=== PATIENT | male | born 1950 | race Caucasian/White ===

== ENCOUNTER 2018-11-13 21:34 | Inpatient (IN) ==
[2018-11-13] MEDS ORDERED: ASPIRIN CHEW 324 MG ONE (21:48)
[2018-11-13] MEDS ORDERED: ASPIRIN 81 MG CHEW PO STA (21:51)
[2018-11-13] MEDS ORDERED: NITROGLYCERIN SL 0.4 MG/TAB TAB SL STA (21:55)
[2018-11-13 22:02] LABS: Basophils # (auto) 0.03 K/uL (0-0.2); Basophils % (auto) 0.3 %; Eosinophils # (auto) 0.24 K/uL (0-0.5); Hematocrit (blood only) 39.4 % (42-52); Hemoglobin 13.7 g/dL (14.0-18.0); Immature Granulocytes # (auto) 0.03 K/uL (0.00-0.02); Immature Granulocytes % (auto) 0.3 %; Lymphocytes # (auto) 1.67 K/uL (1.2-3.4); Lymphocytes % (auto) 14.1 %; Mean Corpuscular Hemoglobin 29.2 pg (25-34); Mean Corpuscular Hgb Conc 34.8 g/dL (32-36); Mean Platelet Volume 9.2 fL (7.4-10.4); Monocytes # (auto) 0.87 K/uL (0.11-0.59); Monocytes % (auto) 7.4 %; Neutrophils # (auto) 8.97 K/uL (1.4-6.5); Neutrophils % (auto) 75.9 %; Platelet Count 291 K/uL (130-400); RDW Standard Deviation 39.2 fL (36.4-46.3); Red Blood Count 4.69 M/uL (4.7-6.1); White Blood Count 11.81 K/uL (4.8-10.8)
[2018-11-13] MEDS ORDERED: NiCARDipine HCL INJ 2.5 MG/ML 10 ML AMP ONE (22:13)
[2018-11-13] MEDS ORDERED: HEPARIN (PORCINE) 1000 UNIT/ML 10 ML (CATH LAB USE ONLY) ONE ×2 (22:13→22:56)
[2018-11-13] MEDS ORDERED: NITROGLYCERIN/D5W 100MCG/ML 20ML SYR ONE (22:14)
[2018-11-13] MEDS ORDERED: fentaNYL citrate 100 MCG/2 ML VIAL ONE (22:14)
[2018-11-13] MEDS ORDERED: MIDAZOLAM HCL 1 MG/ML 2ML VIAL ONE ×2 (22:14→22:51)
--- NOTE | 2018-11-13 22:14 | XRay Report ---
XR chest 1V portable HISTORY: Atypical Chest Pain COMPARISON: None. FINDINGS: The cardiac silhouette is mildly enlarged. There are low lung volumes. No pleural effusions . No pneumothorax. The lungs are clear. No evidence for pulmonary edema. IMPRESSION: Mild cardiomegaly. Electronically signed by: Zion Mas M.D. 11/13/2018 10:13 PM
[2018-11-13 22:22] LABS: Albumin Level 4.3 gm/dl (3.4-5.0); BUN Creatinine Ratio 12.2 (10-20); Calcium 9.8 mg/dl (8.5-10.1); Creatinine Clr Calc Pharmacy 54.5 ml/min; Est GFR (African American) 54.6; Est GFR (Non-African American) 47.1; Potassium 3.8 mmol/L (3.5-5.1)
--- NOTE | 2018-11-13 22:25 | Cardiology Consultation ---
Date of Consultation November 13, 2018 Assessment & Plan (1) Acute MT: Presentation consistent with inferior STEMI and recommend proceeding with emergent cardiac catheterization and likely primary PCI. No apparent contraindications to procedure. Discussed risks, benefits, alternatives of procedure with patient and they are willing to proceed. Further recommendations pending findings of coronary angiography. History of Present Illness History of Present Illness 68-year-old man here with acute chest/back pain and ECG concerning for acute MT. Patient seen emergently in the ED after heart alert activated in ED. No prior cardiac history. Cardiac risk factors include type 2 diabetes, hypertension, dyslipidemia. Also reports family history of premature coronary disease involving his sister and prior MT with CABG involving his oler brother. Chest/back pain began approximately 8 PM, 2 hours prior to arrival while out camping. Describes back pain radiating to his neck with associated nausea. Denies similar symptoms in the past. Hemodynamically stable on arrival. Intermittent runs of nonsustained VT on telemetry. EKG showed sinus rhythm with inferior ST elevations. Allergies Allergy/AdvReac Type Severity Reaction Status Date / Time simvastatin Allergy Intermediate RASH Unverified 08/26/10 12:48 Home Medications Home Medications Medication Instructions Recorded Confirmed Type ATORVASTATIN (LIPITOR) 20 mg PO DAILY #0 08/26/10 History Amitriptyline Hcl (Elavil) 50 mg PO DAILY #0 08/26/10 History Clomipramine Hcl (Anafranil *) 50 mg PO TID #0 08/26/10 History Diazepam (Valium) 5 mg PO DAILY PRN #0 08/26/10 History Lisinopril (Zestril) 10 mg PO DAILY #0 08/26/10 History Metformin HCL (Glucophage *) 1,000 mg PO BID #0 08/26/10 History Methylphenidate (Ritalin) 10 mg PO TID #0 08/26/10 History Venlafaxine Hcl (Effexor *) 50 mg PO TID #0 08/26/10 History Patient History Medical History HTN (hypertension) Social History Feels Safe at Home: Yes Smoking Status: Former smoker Review of Systems Review of Systems: Not obtained in the setting of emergent situation Physical Exam Physical Exam: General: Uncomfortable, no acute distress HEENT: Sclerae anicteric Lungs: Clear to auscultation bilaterally Cardiac: Regular rate and rhythm, no murmurs. Abdomen: Soft, nontender, nondistended, positive bowel sounds. Extremities: Warm, well perfused, no edema. 2+ radial pulses Skin: No rashes or lesions. Neuro: Nonfocal Psych: Alert orient x3, normal affect and mood Results & Data Vital Signs (Past 12 Hours) Vital Signs Temp Pulse Pulse Resp BP BP Pulse Ox 11/13/18 22:15 84 16 147/93 H 95 11/13/18 22:10 88 16 159/96 H 96 11/13/18 22:05 84 16 159/103 H 95 11/13/18 22:03 89 16 171/98 H 97 11/13/18 21:35 97.9 F 72 20 181/115 H 98 PG Care Time/CCT Total # of Minutes Spent Total Time Spent with Patient: Total time spent is greater than 50% in coordination of care (as documented) at patient's floor/unit and/or counseling patient:
--- NOTE | 2018-11-13 22:25 | Pre Anesthesia Assessment ---
Date of Service November 13, 2018 Pre Sedation Assessment Vital Signs Temp Pulse Pulse Resp BP BP Pulse Ox 11/13/18 22:15 84 16 147/93 H 95 11/13/18 22:10 88 16 159/96 H 96 11/13/18 22:05 84 16 159/103 H 95 11/13/18 22:03 89 16 171/98 H 97 11/13/18 21:35 97.9 F 72 20 181/115 H 98 Cardiovascular RRR, no murmur, no edema Respiratory normal respiratory effort, lungs clear to auscultation Pre-Sedation Airway Assessment Smoking Status: Former smoker Hx Sleep Apnea: No Hx Difficult Intubation: No Short, Thick Neck: No Thyromental Distance: > or= 3.5 Finger Breadths Oral Cavity: + WNL Mallampati Class: III ASA: ASA4 Procedure Planning Contraindications for Sedation: none Current Medications Reviewed: Yes Notes The planned sedation has been discussed with the patient. Informed Consent was obtained. I have identified the patient, determined the appropriateness of sedation and have assessed the patient immediately prior to the procedure. All medicine(s) and interventions are by my order.
[2018-11-13 22:27] LABS: Bilirubin,Total 0.5 mg/dl (0.2-1); Globulin 4.2 gm/dl (2.5-4.0); Total Protein 8.5 gm/dl (6.4-8.2); Troponin I 0.043 ng/ml (0-0.045)
[2018-11-13] MEDS ORDERED: ATROPINE SULFATE 0.1 MG/ML 10ML SYR IV ONE (22:42)
[2018-11-13] MEDS ORDERED: EPTIFIBATIDE 2 MG/ML 10 ML VIAL (CATH LAB USE ONLY) ONE (22:57)
[2018-11-13] MEDS ORDERED: EPTIFIBATIDE 0.75 MG/ML 75MG VIAL (CATH LAB USE ONLY) ONE (23:00)
[2018-11-13] MEDS ORDERED: TICAGRELOR 90 MG TAB PO ONE (23:19)
[2018-11-13] MEDS: EPTIFIBATIDE 75 MG/100 ML VIAL IV SCH (23:30)
[2018-11-13] MEDS ORDERED: EPTIFIBATIDE BOLUS/DRIP IV STA (23:33)
[2018-11-13] MEDS ORDERED: ONDANSETRON INJ 2 MG/ML 2 ML VIAL IV PRN (23:33)
--- NOTE | 2018-11-13 23:33 | Post Anesthesia Assessment ---
Date of Service November 13, 2018 Post Sedation Assessment Vital Signs Temp Pulse Pulse Resp BP BP Pulse Ox 11/13/18 22:15 84 16 147/93 H 95 11/13/18 22:10 88 16 159/96 H 96 11/13/18 22:05 84 16 159/103 H 95 11/13/18 22:03 89 16 171/98 H 97 11/13/18 21:35 97.9 F 72 20 181/115 H 98 Recovery Score Activity: Moves 4 extremities Respiration: Deep Breath/Cough Circulation: +/-20% PreAnes Value Consciousness: Fully Awake Oxygen Saturation: O2 needed for >90% Discharge Sedation Level of Care: Fast Track Phase II Post Sedation Plan On clinical assessment, the patient appears to have tolerated the sedation without complications. Patient is recovering as anticipated. Patient will continue to be monitored by nursing and may be discharged when sedation discharge criteria are met per below protocol. Upon Completions of procedure and additional 15 minutes continue every 5 minute vital signs and the P.A.R. score; then discharge to a Phase I or Fast Track to Phase II per the following guidelines: * Discharge Patient to appropriate Phase II area if PAR is 8 or greater or return to pre- procedure baseline. The post - procedure orders will be as directed. * If PAR score is less than 8 or not return to pre-procedure baseline then patient will follow Phase I monitoring till PAR is reached for Phase II. The Phase I may be done in procedure room or may call to secure a Phase I area. * If naloxone or flumazenil are used for reversal, hold in Phase I for continued monitoring from when last reversal dose was given for a minimum of 60 minutes or longer pending the nurse and/or physician discretion of patient condition before discharge to Phase II. Please call the Sedation Physician to re-evaluate and complete post-note for discharge to Phase II area. Do NOT discharge from procedure sedation or Phase 1 until post- sedation evaluation note is complete by procedure /sedation MD Sedation Discharge Instructions to be given to the patient at discharge to home.
[2018-11-13] MEDS ORDERED: ICU PROTOCOL FOR HYPERGLYCEMIA PRN (23:38)
[2018-11-13] MEDS ORDERED: SODIUM CHLORIDE 0.9% 1000ML 1,000 ML IV SCH (23:45)
--- NOTE | 2018-11-13 23:54 | Cardiac Catheterization ---
[facility] Data: Upholsterer Inside Cardiac Status Clinical evaluation leading to the procedure CAD Presenation: STEMI Anginal Classification: CCS IV Heart Failure: No Cardiogenic Shock within 24 Hours: No Cardiac Arrest within 24 Hours: No Imaging Studies Past 6 Months: No Stress Studies Past 6 Months: No Diagnostic Physicians Name: Azale Huff MD Status: Emergency Closure Device Percutaneous Entry Location: Radial Closure Device: Radial Band Recommendations: PCI without planned CABG PCI Indication: Immediate PCI for STEMI First Noted: First EKG Lesion Segment Name: distal rca Culprit Artery: Yes Stenosis Prior to Rx (%): 100 Chronic Total Occlusion: No IVUS: No FFR: No Pre-Procedure LORIE Flow: 0 Previously Treated Lesion: No Lesion Complexity: Non-High/Non-C Lesion Length (mm): 18 Thrombus Present: Yes Bifurcation Lesion: Yes Guidewire Across Lesion: Stenosis Post-Procedure (%): 0 Post-Procedure LORIE Flow: 3 Devices(s) Deployed: Yes Yes Intraprocedure Events Significant Disection: No Perforation: No Cardiac Cath Procedure Full Procedure Date November 13, 2018 Pre-Procedure Diagnosis Pre-Procedure Diagnosis: STEMI AUC Score AUC Score: 9 Post-Procedure Diagnosis Post-Procedure Diagnosis: Severe CAD, Successful PCI and Normal Intracardiac Pressures Procedure(s) Performed Procedure(s) Performed: Coronary Angiography, Left Heart Cath and Drug Eluting Stent Corrugated Box Machine Operator Azael Huff MD Greige Mender(s) [employer] Estimated Blood Loss Estimated Blood Loss: 10 Medication(s) Medication(s): Fentanyl, Heparin, Integrilin, Lidocaine 1%, Nicardipine, N itroglycerin and Versed Medication(s): Ticagrelor Summary of Findings Indication: STEMI/Heart Alert Access: 6 Fr right radial artery Catheters: Ikari 3.5 guide, JR4 guide, pigtail Findings: LM -angiographically normal LAD -moderate caliber vessel, proximal luminal irregularities, mid segment 40% disease, distal luminal irregularities as wraps around apex. 70 to 80% ostial stenosis of moderate caliber second diagonal Circumflex -moderate caliber vessel, luminal irregularities, gives off large OM 2 without significant disease RCA -moderate caliber vessel, dominant, 20 to 30% proximal, mid segment luminal irregularities, 100% acute distal occlusion prior to bifurcation with PDA. LVEDP -18 -- PCI -- Antithrombotic therapy: Heparin, Integrilin, ticagrelor Procedure: RCA cannulated with JR4 guide Dealer Account Manager 50 wire passed across lesion into distal PLB BMW wire placed into right PDA Distal RCA lesion predilated with 2.5 compliant balloon Dilated lesion stented with 3.0 x 22 mm Gonzalo drug-eluting stent Post procedure noted to have significant thrombus burden extending into PDA Started on ICE, IV Integrilin, mid PDA dottered with 2.5 balloon Stent post-dilated with 3.0 noncompliant balloon IC vasodilators administered for spasm Post procedure LORIE 3 flow, stent well expanded with minimal residual stenosis and no edge dissection. Some residual clot and distal most aspects of right PDA. Arterial Closure: TR band Summary: 1. Inferior STEMI/Occluded distal RCA 2. 70 to 80% ostial stenosis of moderate caliber second diagonal 3. Borderline intracardiac filling pressure. LVEDP 18 4. Successful PCI of distal RCA with single drug-eluting stent (3.0 x 22 mm [place]). Recommendations: Admit to ICU for continued monitoring Continue Integrilin for 8 hours for heavy thrombus burden Loaded with ticagrelor 180 mg in woven label designer Continue dual-antiplatelet therapy for at least 1 year. Trend troponins until peak, Check Echo Uptitrate beta-chikis/NICOLAS as BP allows High-dose statin Consult cardiac Rehab Hemodynamics Rest Ao:: 128/70/94 Final Ao: 154/83/112 LV: 153/18 Recommendations Recommendations: PCI without planned CABG Specimens Specimens: None Radiation Exposure (mGy) 4098 Contrast (mls) 150 Fluids (cc crystalloids) Fluids (cc crystalloids): 100 Drains Drains: none Anesthesia moderate Procedural Complication(s) None Disposition ICU
--- NOTE | 2018-11-14 00:25 | Emergency Department Note ---
Entered by Della Jain acting as a scribe for History of Present Illness General Chief complaint: Back Injury/Pain Stated complaint: BACK PAIN Source: patient Mode of arrival: EMS Limitations: no limitations History of Present Illness Onset (ago): hour(s) 3 Location: back Radiation: other (upper shoulder) Pain Consistency: + constant Maximum Pain Intensity: 6 Current Pain Intensity: 6 Relieved By: + medication (Tums) Exacerbated By: + none Associated symptoms: + nausea/vomiting (+nausea, -vomiting); no chest pain and no shortness of breath Treatments prior to arrival: other (TUMS) The patient is a 68 year old male with a PMHX of DM and HTN who presents to the ED with complaints of back pain. He was brought to the ED via EMS. 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 He tried taking TUMS, which provided minimal relief. He rates his current discomfort as a 6/10 in severity. He denies any difficulty breathing or chest pain. He denies any prior heart history. He does take a daily baby Aspirin. He admits to nausea but denies any vomiting. Home Medications Home Medications Medication Instructions Recorded Confirmed Type ATORVASTATIN (LIPITOR) 20 mg PO DAILY #0 08/26/10 History Amitriptyline Hcl (Elavil) 50 mg PO DAILY #0 08/26/10 History Clomipramine Hcl (Anafranil *) 50 mg PO TID #0 08/26/10 History Diazepam (Valium) 5 mg PO DAILY PRN #0 08/26/10 History Metformin HCL (Glucophage *) 1,000 mg PO BID #0 08/26/10 History Methylphenidate (Ritalin) 10 mg PO TID #0 08/26/10 History Effexor XR 75 mg PO DAILYBL 11/14/18 11/14/18 History Effexor XR 150 mg PO DAILYBB 11/14/18 11/14/18 History repaglinide [Prandin] 2 mg PO AC 11/14/18 11/14/18 History sitagliptin [Januvia] 100 mg PO DAILY 11/14/18 11/14/18 History valsartan 80 mg PO DAILY 11/14/18 11/14/18 History Allergies Allergy/AdvReac Type Severity Reaction Status Date / Time simvastatin Allergy Intermediate RASH Unverified 08/26/10 12:48 Past Med/Surg History Medical History HTN (hypertension) Social History Preferred Language: Kazakh Communication Ability: Effective [place] Required: No Beliefs That Will Affect Care: None Current Living Situation: Spouse Other Information That Helps Us Care for You: No Feels Safe at Home: Yes Safety Concerns: Feels Safe At This Time Smoking Status: Former smoker Hx Alcohol Use: Yes Alcohol type: beer Hx Substance Use: No Review of Systems See HPI for pertinent positives & negatives. and A total of 10 systems reviewed and were otherwise negative Physical Exam Vital Signs Vital Signs - 24 hr 11/13/18 21:35 11/13/18 22:00 11/13/18 22:03 Temperature 36.6 C Temperature Source Oral Sepsis Recent Fever Within 48 Hours No Sepsis New/Unexplained Change in Mental Status No Sepsis Action Taken by Nursing No Action Required Pulse Rate 72 Pulse Rate [Apical] Pulse Rate [Finger] 89 Pulse Rhythm [Apical] Pulse Strength [Apical] Respiratory Rate 20 16 Respiratory Effort / Characteristics Non-Labored Spontaneous Non-Labored Spontaneous Respiratory Depth Normal Normal Respiratory Pattern Regular Blood Pressure 181/115 H Blood Pressure [Left Arm] Blood Pressure [Right Arm] 171/98 H Blood Pressure Mean 137 Blood Pressure Mean [Left Arm] Blood Pressure Mean [Right Arm] 122 Blood Pressure Position Sitting Blood Pressure Position [Left Arm] Pulse Oximetry 98 97 Oxygen Delivery Method Room Air Room Air Room Air 11/13/18 22:05 11/13/18 22:10 11/13/18 22:15 Temperature Temperature Source Sepsis Recent Fever Within 48 Hours Sepsis New/Unexplained Change in Mental Status Sepsis Action Taken by Nursing Pulse Rate Pulse Rate [Apical] Pulse Rate [Finger] 84 88 84 Pulse Rhythm [Apical] Pulse Strength [Apical] Respiratory Rate 16 16 16 Respiratory Effort / Characteristics Non-Labored Spontaneous Respiratory Depth Normal Respiratory Pattern Blood Pressure Blood Pressure [Left Arm] Blood Pressure [Right Arm] 159/103 H 159/96 H 147/93 H Blood Pressure Mean Blood Pressure Mean [Left Arm] Blood Pressure Mean [Right Arm] 121 117 111 Blood Pressure Position Blood Pressure Position [Left Arm] Pulse Oximetry 95 96 95 Oxygen Delivery Method Room Air Room Air 11/13/18 23:34 Temperature 36.6 C Temperature Source Oral Sepsis Recent Fever Within 48 Hours Sepsis New/Unexplained Change in Mental Status Sepsis Action Taken by Nursing Pulse Rate Pulse Rate [Apical] 87 Pulse Rate [Finger] Pulse Rhythm [Apical] Regular Pulse Strength [Apical] Normal Respiratory Rate 18 Respiratory Effort / Characteristics Non-Labored Spontaneous Respiratory Depth Normal Respiratory Pattern Regular Blood Pressure Blood Pressure [Left Arm] 147/79 H Blood Pressure [Right Arm] Blood Pressure Mean Blood Pressure Mean [Left Arm] 101 Blood Pressure Mean [Right Arm] Blood Pressure Position Blood Pressure Position [Left Arm] Lying Pulse Oximetry 96 Oxygen Delivery Method Room Air GENERAL: Patient is awake and alert, appears diaphoretic and pool. HENT: Normocephalic, atraumatic. EYES: Normal conjunctiva. Sclera non-icteric. NECK: Supple. No nuchal rigidity. RESPIRATORY: Clear to auscultation. Normal respiratory effort. CARDIAC: Normal rate. Irregular rhythm. Extremities warm and well perfused. GI: Soft, non-distended. No tenderness to palpation. LOWER EXTREMITIES: Calves are equal size bilaterally and non-tender. No edema NEURO: Normal sensorium. No sensory or motor deficits noted. No facial droop. SKIN: Warm and dry. No jaundice noted. Course 2146: The patient was evaluated in room B5 and a complete history and physical were performed. 5: I discussed the patients case with Dr. Huff, Interventional Cardiology. The patient will be further evaluated. Consultations Consultation #1: I discussed the patients case with Dr. Huff, Interventional Cardiology. The patient will be further evaluated. Time: 22:15 Administered Medications Sodium Chloride (Nss 1000ml) 1,000 mls @ 100 mls/hr IV .Q10H [facility] Stop: 11/14/18 04:44 Last Admin: 11/13/18 23:45 Dose: 100 mls/hr Documented by: [id number] Eptifibatide (Integrilin) 75 mg in 100 mls @ 15.84 mls/hr IV .Q6H19M [facility]; Protocol Stop: 11/14/18 07:00 Last Admin: 11/13/18 23:30 Dose: 2 mcg/kg/min, 15.8 mls/hr Documented by: [id number] Cosigned by: [id number] Discontinued Medications Aspirin (Aspirin) Confirm Administered Dose 324 mg .ROUTE .[facility] Stop: 11/13/18 21:49 Last Admin: 11/13/18 21:58 Dose: 243 mg Documented by: [id number] Aspirin (Aspirin Chew) 243 mg PO NOW STA Stop: 11/13/18 21:52 Last Admin: 11/13/18 21:59 Dose: Not Given Documented by: [id number] Atropine Sulfate (Atropine Sulfate) Confirm Administered Dose 1 mg IV .STK-MED ONE Stop: 11/13/18 22:43 Last Admin: 11/14/18 00:57 Dose: Not Given Documented by: [id number] Eptifibatide (Integrilin ([facility] Use Only)) Confirm Administered Dose 20 mg .ROUTE .STK-MED ONE Stop: 11/13/18 22:58 Last Admin: 11/14/18 00:57 Dose: Not Given Documented by: [id number] Eptifibatide (Integrilin ([facility] [employer] Use Only)) Confirm Administered Dose 75 mg .ROUTE .STK-MED ONE Stop: 11/13/18 23:01 Last Admin: 11/14/18 00:57 Dose: Not Given Documented by: [id number] Fentanyl Citrate (Fentanyl Citrate) Confirm Administered Dose 100 mcg .ROUTE .STK-MED ONE Stop: 11/13/18 22:15 Last Admin: 11/14/18 00:56 Dose: Not Given Documented by: [id number] Heparin Sodium (Porcine) (Heparin Iv Bolus ([facility] Use Only)) Confirm Administered Dose 10,000 units .ROUTE .STK-MED ONE Stop: 11/13/18 22:14 Last Admin: 11/14/18 00:56 Dose: Not Given Documented by: [id number] Heparin Sodium (Porcine) (Heparin Iv Bolus ([facility] Use Only)) Confirm Administered Dose 10,000 units .ROUTE .STK-MED ONE Stop: 11/13/18 22:57 Last Admin: 11/14/18 00:57 Dose: Not Given Documented by: [id number] Heparin Sodium/Sodium Chloride (Heparin/Nss 1000 Unit/500ml Flush Bag) Confirm Administered Dose 3,000 units IV .STK-MED ONE Stop: 11/13/18 22:15 Last Admin: 11/14/18 00:56 Dose: Not Given Documented by: [id number] Midazolam HCl (Versed) Confirm Administered Dose 2 mg .ROUTE .STK-MED ONE Stop: 11/13/18 22:15 Last Admin: 11/14/18 00:56 Dose: Not Given Documented by: [id number] Midazolam HCl (Versed) Confirm Administered Dose 2 mg .ROUTE .STK-MED ONE Stop: 11/13/18 22:52 Last Admin: 11/14/18 00:57 Dose: Not Given Documented by: [id number] Nicardipine HCl (Cardene) Confirm Administered Dose 25 mg .ROUTE .STK-MED ONE Stop: 11/13/18 22:14 Last Admin: 11/14/18 00:56 Dose: Not Given Documented by: [id number] Nitroglycerin (Nitrostat) 0.4 mg SL NOW STA Stop: 11/13/18 21:56 Last Admin: 11/13/18 21:58 Dose: 0.4 mg Documented by: [id number] Nitroglycerin/Dextrose (Nitroglycerin/D5w 100 Mcg/Ml 20ml Syringe) Confirm Administered Dose 2,000 mcg .ROUTE .STK-MED ONE Stop: 11/13/18 22:15 Last Admin: 11/14/18 00:56 Dose: Not Given Documented by: [id number] Ticagrelor (Brilinta) Confirm Administered Dose 180 mg PO .STK-MED ONE Stop: 11/13/18 23:20 Last Admin: 11/14/18 00:57 Dose: Not Given Documented by: [id number] Medical Decision Making Differential Diagnosis Differential diagnoses includes but is not limited to acute coronary syndrome, myocardial infarction, pericarditis, pulmonary embolus, aortic dissection, pneumonia, pneumothorax, musculoskeletal, shingles, esophageal. Medical Records Attestation: I reviewed the patient's medical records. Home Medications Current Medication List: was personally reviewed by me Laboratory Data Attestation: I reviewed the patient's lab results. Result diagrams: 11/13/18 21:52 11/13/18 21:52 Lab Results 11/13/18 11/13/18 11/13/18 Range/Units 21:52 21:52 21:52 WBC 11.81 H (4.8-10.8) K/uL RBC 4.69 L (4.7-6.1) M/uL Hgb 13.7 L (14.0-18.0) g/dL Hct 39.4 L (42-52) % MCV 84.0 (80-100) fL MCH 29.2 (25-34) pg MCHC 34.8 (32-36) g/dL RDW Std Deviation 39.2 (36.4-46.3) fL RDW Coeff of Aaron 13.0 (11.5-14.5) % Plt Count 291 (130-400) K/uL MPV 9.2 (7.4-10.4) fL Immature Gran % (Auto) 0.3 % Neut % (Auto) 75.9 % Lymph % (Auto) 14.1 % [place] % (Auto) 7.4 % Eos % (Auto) 2.0 % Baso % (Auto) 0.3 % Immature Gran # (Auto) 0.03 H (0.00-0.02) K/uL Neut # (Auto) 8.97 H (1.4-6.5) K/uL Lymph # (Auto) 1.67 (1.2-3.4) K/uL [place] # (Auto) 0.87 H (0.11-0.59) K/uL Eos # (Auto) 0.24 (0-0.5) K/uL Baso # (Auto) 0.03 (0-0.2) K/uL PT (9.0-12.0) Seconds INR (0.9-1.1) Activ Coag Time Kaolin (94-140) SECONDS Sodium 134 L (136-145) mmol/L Potassium 3.8 (3.5-5.1) mmol/L Chloride 99 (98-107) mmol/L Carbon Dioxide 26 (21-32) mmol/L Anion Gap 9.0 (3-11) BUN 19 H (7-18) mg/dl Creatinine 1.52 H (0.6-1.4) mg/dl Est Cr Clr Drug Dosing 54.5 ml/min Est GFR ( Amer) 54.6 Est GFR (Non-Af Amer) 47.1 BUN/Creatinine Ratio 12.2 (10-20) Glucose 238 H (70-99) mg/dl Calcium 9.8 (8.5-10.1) mg/dl Total Bilirubin 0.5 (0.2-1) mg/dl AST 30 (15-37) U/L ALT 35 (12-78) U/L Alkaline Phosphatase 109 (45-117) U/L POC Troponin I (0-0.045) ng/ml Troponin I 0.043 (0-0.045) ng/ml Total Protein 8.5 H (6.4-8.2) gm/dl Albumin 4.3 (3.4-5.0) gm/dl Globulin 4.2 H (2.5-4.0) gm/dl Albumin/Globulin Ratio 1.0 (0.9-2) Lipase 518 H (73-393) U/L 11/13/18 11/13/18 11/13/18 Range/Units 21:52 22:01 22:51 WBC (4.8-10.8) K/uL RBC (4.7-6.1) M/uL Hgb (14.0-18.0) g/dL Hct (42-52) % MCV (80-100) fL MCH (25-34) pg MCHC (32-36) g/dL RDW Std Deviation (36.4-46.3) fL RDW Coeff of Aaron (11.5-14.5) % Plt Count (130-400) K/uL MPV (7.4-10.4) fL Immature Gran % (Auto) % Neut % (Auto) % Lymph % (Auto) % [place] % (Auto) % Eos % (Auto) % Baso % (Auto) % Immature Gran # (Auto) (0.00-0.02) K/uL Neut # (Auto) (1.4-6.5) K/uL Lymph # (Auto) (1.2-3.4) K/uL [place] # (Auto) (0.11-0.59) K/uL Eos # (Auto) (0-0.5) K/uL Baso # (Auto) (0-0.2) K/uL PT 10.0 (9.0-12.0) Seconds INR 1.0 (0.9-1.1) Activ Coag Time Kaolin 230 H (94-140) SECONDS Sodium (136-145) mmol/L Potassium (3.5-5.1) mmol/L Chloride (98-107) mmol/L Carbon Dioxide (21-32) mmol/L Anion Gap (3-11) BUN (7-18) mg/dl Creatinine (0.6-1.4) mg/dl Est Cr Clr Drug Dosing ml/min Est GFR ( Amer) Est GFR (Non-Af Amer) BUN/Creatinine Ratio (10-20) Glucose (70-99) mg/dl Calcium (8.5-10.1) mg/dl Total Bilirubin (0.2-1) mg/dl AST (15-37) U/L ALT (12-78) U/L Alkaline Phosphatase (45-117) U/L POC Troponin I 0.03 (0-0.045) ng/ml Troponin I (0-0.045) ng/ml Total Protein (6.4-8.2) gm/dl Albumin (3.4-5.0) gm/dl Globulin (2.5-4.0) gm/dl Albumin/Globulin Ratio (0.9-2) Lipase (73-393) U/L 11/13/18 Range/Units 23:10 WBC (4.8-10.8) K/uL RBC (4.7-6.1) M/uL Hgb (14.0-18.0) g/dL Hct (42-52) % MCV (80-100) fL MCH (25-34) pg MCHC (32-36) g/dL RDW Std Deviation (36.4-46.3) fL RDW Coeff of Aaron (11.5-14.5) % Plt Count (130-400) K/uL MPV (7.4-10.4) fL Immature Gran % (Auto) % Neut % (Auto) % Lymph % (Auto) % [place] % (Auto) % Eos % (Auto) % Baso % (Auto) % Immature Gran # (Auto) (0.00-0.02) K/uL Neut # (Auto) (1.4-6.5) K/uL Lymph # (Auto) (1.2-3.4) K/uL [place] # (Auto) (0.11-0.59) K/uL Eos # (Auto) (0-0.5) K/uL Baso # (Auto) (0-0.2) K/uL PT (9.0-12.0) Seconds INR (0.9-1.1) Activ Coag Time Kaolin 246 H (94-140) SECONDS Sodium (136-145) mmol/L Potassium (3.5-5.1) mmol/L Chloride (98-107) mmol/L Carbon Dioxide (21-32) mmol/L Anion Gap (3-11) BUN (7-18) mg/dl Creatinine (0.6-1.4) mg/dl Est Cr Clr Drug Dosing ml/min Est GFR ( Amer) Est GFR (Non-Af Amer) BUN/Creatinine Ratio (10-20) Glucose (70-99) mg/dl Calcium (8.5-10.1) mg/dl Total Bilirubin (0.2-1) mg/dl AST (15-37) U/L ALT (12-78) U/L Alkaline Phosphatase (45-117) U/L POC Troponin I (0-0.045) ng/ml Troponin I (0-0.045) ng/ml Total Protein (6.4-8.2) gm/dl Albumin (3.4-5.0) gm/dl Globulin (2.5-4.0) gm/dl Albumin/Globulin Ratio (0.9-2) Lipase (73-393) U/L Imaging Data Radiologist's Impression: Radiology results as stated below per my review and the radiologist's interpretation: XR chest 1V portable HISTORY: Atypical Chest Pain COMPARISON: None. FINDINGS: The cardiac silhouette is mildly enlarged. There are low lung volumes. No pleural effusions. No pneumothorax. The lungs are clear. No evidence for pulmonary edema. IMPRESSION: Mild cardiomegaly. Electronically signed by: Zion Mas M.D. 11/13/2018 10:13 PM ECG Data Attestation: I personally reviewed and interpreted this ECG as follows: Indication: back/shoulder pain Rate (beats per minute): 83 Rhythm: sinus rhythm Findings: + ST depression (in AVL and V2) and + ST elevation (from lead 3 to AVF) Additional Comments: 2nd EKG on 11/13/2018: Sinus Rhythm, rate of 88, persistent ST segment elevation, PVC's. Blood Pressure Blood Pressure Findings: Elevated blood pressure Blood Pressure Disposition: further management by hospitalist JAGJIT Narrative Patient is a non-insulin diabetic with a history of hypertension presenting with onset of upper back and arm pain starting around 8 PM. Took some Tums. EKG from triage is concerning for possible inferior STEMI and quickly came to bedside to evaluate the patient he is pool and diaphoretic. Complaining of 6 out of 10 pain in the upper back and arms. Denies shortness of breath or abdominal discomfort. Denies shortness of breath. With his heart alert was initiated. Second EKG obtained, similar. Received additional aspirin for full dose today and given 2 doses of nitroglycerin. Patient's blood pressure was initially significant hypertensive. Ectopy on round up ring hand and one short episode of NSVT. Basic labs were sent. Cath team to bedside including Dr. Huff who consented the patient took him to the [facility] for further intervention. Impression & Plan ST elevation (STEMI) myocardial infarction, Chest pain Critical Care Time Critical Care Time: Yes Total Critical Care Time: 30 I have personally spent 30 minutes of critical care time in the direct management of this patient. This includes bedside care, interpretation of diagnostic studies, and testing, discussion with consultants, patient, and family members, and other required patient management activities. This 30 hunter johnny is in excess of all separately billable procedures. Discharge Plan Visit Data *Final* Discharge Date/Time: 11/13/18 22:19 Chief Complaint: Back Injury/Pain Stated Complaint: BACK PAIN ED Provider: Jerrell Crawford Discharge Problem: ST elevation (STEMI) myocardial infarction, Chest pain Patient Disposition: Admitted As Inpatient Discharge Instructions Interventions: ED Discharge Assessment Last Done: 11/13/18 22:19 The scribe's documentation has been prepared under my direction and personally reviewed by me in its entirety. I confirm that the note above accurately reflects all work, treatment, procedures, and medical decision making performed by me.
--- NOTE | 2018-11-14 00:55 | Critical Care Consultation ---
Date of Consultation November 14, 2018 Assessment & Plan (1) Admitted to intensive care unit: Reason Critically Ill: 68-year-old male with acute inferior ST segment elevation myocardial infarction status post PTCI with RIAZ x1 to the RCA requiring close hemodynamic monitoring status post coronary intervention. NEURO - * CAM ICU: NEGATIVE CARDIAC/VASCULAR - * Acute inferior ST elevation myocardial infarction status post PCI with RIAZ x1 to the RCA: * Close hemodynamic monitoring status post coronary intervention. * Trend troponins. * Continue Integrilin per interventionalist. * ASCVD per typical. * Monitor blood pressures/heart rates closely in the setting of RCA injury. * A.m. echocardiogram. * EKG: Sinus rhythm with left bundle branch block. Acute ST elevation noted in inferior leads. QTc 474ms. * Monitor on telemetry. RESPIRATORY - * No h/o pulmonary disease. * Saturating well on room air. GI/NUTRITION - * Heart healthy diet. RENAL/LYTES - * Tolerating PO - * No concerns at this time. ENDO - * DMII * BSGs per unit protocol. ISS --> gtt per unit policy. * No h/o Thyroid Dz. HEME - * Stable H&H * Monitor closely while Integrilin gtt running. ID - * No concerns for infectious contribution at this time. LINES/IV ACCESS - * PIVs x2 * TR Band to the RIGHT Wrist. DVT PROPHYLAXIS - * Hold in the setting of current Integrilin gtt. * SCDs I have personally spent [] minutes of critical care time in the direct management of this patient. This is a life/limb threatening event. This includes time spent evaluating patient, direct bedside care, chart review, placing orders, interpretation of diagnostic studies, discussion with consultants, patient, and family members, as well as other required patient management activities. This time is exclusive of all separately billable procedures, and teaching time and separate from and in addition to any other critical care service time. Thank you for allowing us to participate in the care of this patient. Please refer to my attending physician's documentation for any further recommendations. (2) ST elevation (STEMI) myocardial infarction: (3) Acute LA: (4) HTN (hypertension): (5) HLD (hyperlipidemia): (6) Diabetes: (7) S/P drug eluting coronary stent placement: History of Present Illness Attending Physician: Azael Huff MD History of Present Illness Patient is a 68-year-old male with a significant past medical history of hypertension, hyperlipidemia, and diabetes who presented to the emergency department after developing intense pain between his shoulder blades at approximately 7 PM. In addition, the patient's noticed that he was having heavy breathing when she arrived home. In addition, the patient was utilizing Tums as he was complaining of heartburn symptoms. Patient reports radiation of the pain to the bilateral biceps. He reports no other associated symptoms. He has never experienced pain like this in the past. Upon arrival in the emergency department, the patient was evaluated and there was concerns for acute inferior ST elevation myocardial infarction. Heart alert was called and the patient was taken emergently to the catheterization lab where he underwent PTCI with RIZA x1 to the RCA. Upon arrival in the ICU, the patient is awake, alert, and oriented. He is complaining of some mild 2/10 pain which persists between the shoulder blades. He denies any radiation of pain at this time. He denies any chest pain, palpitations, pleuritic pain, nausea, vomiting, diaphoresis, abdominal pain, or numbness/weakness to the extremities. Patient reports a history of smoking several years ago in college. No significant alcohol use. Allergies Allergy/AdvReac Type Severity Reaction Status Date / Time simvastatin Allergy Intermediate RASH Unverified 08/26/10 12:48 Home Medications Home Medications Medication Instructions Recorded Confirmed Type ATORVASTATIN (LIPITOR) 20 mg PO DAILY #0 08/26/10 History Amitriptyline Hcl (Elavil) 50 mg PO DAILY #0 08/26/10 History Clomipramine Hcl (Anafranil *) 50 mg PO TID #0 08/26/10 History Diazepam (Valium) 5 mg PO DAILY PRN #0 08/26/10 History Metformin HCL (Glucophage *) 1,000 mg PO BID #0 08/26/10 History Methylphenidate (Ritalin) 10 mg PO TID #0 08/26/10 History Effexor XR 75 mg PO DAILYBL 11/14/18 11/14/18 History Effexor XR 150 mg PO DAILYBB 11/14/18 11/14/18 History repaglinide [Prandin] 2 mg PO AC 11/14/18 11/14/18 History sitagliptin [Januvia] 100 mg PO DAILY 11/14/18 11/14/18 History valsartan 80 mg PO DAILY 11/14/18 11/14/18 History Patient History Medical History HTN (hypertension) Social History Preferred Language: Serbian 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 All else were negative. Physical Exam Physical Exam: VITAL SIGNS - Vital signs and nursing notes were reviewed. GENERAL - 68-year-old male appearing his stated age who is in no acute distress. Communicates well with provider and answers questions appropriately. HEAD - NC/AT. EYES - PERRL with EOMI bilaterally. Sclera anicteric. Palpebral conjunctiva pink and moist with no injection noted. EARS - No deformities of external structures noted on gross examination bilaterally. NOSE - Midline and without cyanosis. No epistaxis or purulent drainage noted. Septum midline without deviation or septal hematoma noted. MOUTH/OROPHARYNX - Without perioral cyanosis. Buccal mucosa pink and moist and without leukoplakia. Tongue midline with equal elevation of palate bilaterally. No tonsillar hypertrophy, erythema, or exudates noted. Good dentition noted. NECK - Neck with FROM. Supple to palpation without JVD, carotid bruit, thyromegally, or thyroid nodules. LUNGS - Chest wall symmetric without accessory muscle use, intercostals retractions, or central cyanosis. Normal vesicular breath sounds CTA B/L. No wheezes, rales, or rhonchi appreciated. CARDIAC - RRR with S1/S2. No murmur, rubs, or gallops appreciated. No reproducible tenderness to palpation appreciated over the anterior chest wall. ABDOMEN - Abdominal contour obese without pulsations or visible masses. BS normoactive all four quadrants. No tenderness, palpable masses, hepatosplenomegaly, or ascites noted. EXTREMITIES - No clubbing or peripheral cyanosis. No pretibial edema present. +3/5 radial and dorsalis pedis pulses palpated throughout. +5/5 strength noted in UE/LE bilaterally. NEUROLOGIC - Cranial nerves II through XII grossly intact. Sensory intact to light touch throughout. PSYCH - A&Ox3 and cooperates fully with examiner. Pt is very pleasant and interacts well with examiner. Results & Data Vital Signs (Past 12 Hours) Vital Signs Temp Pulse Pulse Pulse Resp BP BP 11/13/18 23:34 36.6 C 87 18 147/79 H 11/13/18 22:15 84 16 11/13/18 22:10 88 16 11/13/18 22:05 84 16 11/13/18 22:03 89 16 11/13/18 21:35 36.6 C 72 20 181/115 H BP Pulse Ox 11/13/18 23:34 96 11/13/18 22:15 147/93 H 95 11/13/18 22:10 159/96 H 96 11/13/18 22:05 159/103 H 95 11/13/18 22:03 171/98 H 97 11/13/18 21:35 98 PG Care Time/CCT Total # of Minutes Spent Total Time Spent with Patient: Total time spent is greater than 50% in coordination of care (as documented) at patient's floor/unit and/or counseling patient: Critical Care Time: Yes Total Critical Care Time: 35
[2018-11-14] MEDS ORDERED: INSULIN ASPART 100 UNITS/ML 3 ML PEN SC ONE (01:30)
[2018-11-14] MEDS: LISINOPRIL 5 MG TAB PO SCH ×2 (01:36→08:24)
[2018-11-14] MEDS: METOPROLOL TARTRATE 25 MG TAB PO SCH ×3 (01:36→20:30)
[2018-11-14] MEDS ORDERED: diazePAM 5 MG TABLET PO PRN ×2 (02:11→09:00)
[2018-11-14] MEDS: ACETAMINOPHEN 325 MG TAB PO PRN ×2 (02:57→09:56)
[2018-11-14] MEDS ORDERED: COUGH DROP (SUGAR FREE) LOZ 24 LOZ/1 BOX BUCCAL PRN ×2 (02:59→03:15)
--- NOTE | 2018-11-14 03:11 | History and Physical Report ---
DATE OF ADMISSION: 11/14/2018 CHIEF COMPLAINT: ST elevated HI. HISTORY OF PRESENT ILLNESS: This is a 68-year-old male with past medical history significant for type 2 diabetes, hyperlipidemia, major depression, hypertension, anxiety, attention deficit disorder, presents with chest pain. Yesterday evening at 8:00 p.m., he noticed pain in the back and also in the shoulders, radiated to his biceps. It was severe in nature. came home around 9:00 p.m. and she thought that the patient was breathing hard and they came to the hospital and the EKG showed ST elevation HI in the inferior leads . Heart alert was called and status post cardiac catheterization and was found to have 100% occluded distal RCA status post 1 drug-eluting stent and also 70% to 80% ostial stenosis of moderate caliber of second diagonal. Because of heavy thrombus burden, he was placed on integrin to be continued for 8 hours, Was loaded with Brilinta. Given aspirin. Currently, patient still has some back pain but his shoulder pain is improved. Resting comfortably. Denies any shortness of breath, no cough, no fever, no chills, no headache, no blurred vision, no earache, no runny nose, no sore throat. Appetite is okay. Otherwise, no nausea, no abdominal pain. Normal bowel and bladder movements. No hematuria, no black stools or blood in the stools. No swelling in the legs. No easy bruising or bleeding. Otherwise, he was doing okay until this happened. ALLERGIES: ZOCOR, RASH. PAST MEDICAL HISTORY: As mentioned above. PAST SURGICAL HISTORY: Colonoscopy, dental surgery, cataract surgery. MEDICATIONS AT HOME: The patient is on valsartan 80 mg p.o. daily, amitriptyline 50 mg p.o. at bedtime, Lipitor 40 mg p.o. daily, clomipramine 50 mg p.o. t.i.d., metformin 1000 mg p.o. b.i.d., Januvia 100 mg p.o. daily, Effexor XR 150 mg in a.m. and 75 mg at lunchtime, Valium 5 mg p.r.n., Prandin 2 mg p.o. t.i.d., methylphenidate 10 mg p.o. t.i.d., aspirin 81 mg p.o. daily, multivitamin with minerals 1 tablet daily. FAMILY HISTORY: Significant for mother at age of 87 from old age, history of aortic valve replacement at age of 79. Father alive. SOCIAL HISTORY: Former smoker, quit in 1976. Smoked 1 pack a day for 5 years. Alcohol occasional. No drug use. REVIEW OF SYSTEMS: As per HPI. Rest of the review of systems negative. PHYSICAL EXAMINATION: GENERAL: The patient is of moderate build, not in acute distress. VITAL SIGNS: Temperature 36.6, pulse 86, respiratory rate 18, blood pressure 165/108, oxygen 96% on room air. HEENT: No pallor, no icterus. NECK: No neck masses. Supple. CARDIOVASCULAR: S1, S2 heard, regular rate and rhythm, no murmur, no gallop. RESPIRATORY SYSTEM: Normal AP diameter. No accessory muscle use. No wheezing, no crackles. ABDOMEN: Soft, bowel sounds present, nontender. No distention. CENTRAL NERVOUS SYSTEM: Nonfocal. EXTREMITIES: No edema, no erythema. Right wrist cath site, no drainage seen. Hematoma seen. LABORATORY DATA: WBC 11.8, hemoglobin 13.7, hematocrit 39.4, platelets 291. PT 10, INR 1, active coagulation time 246 seconds. Sodium 134, potassium 3.8, chloride 99, bicarbonate 26, BUN 19, creatinine 1.52, serum glucose 238, calcium 9.8, total bilirubin 0.5, AST 30, ALT 35, alkaline phosphatase 109. Troponin 1 of 0.043. Lipase 518. IMAGING DATA: Chest x-ray, mild cardiomegaly. EKG: Showed sinus rhythm with PVCs at a rate of 84, ST elevation in the inferior leads. ASSESSMENT AND PLAN: This is a 68-year-old male who presented with back pain and shoulder pain and found to have acute ST elevation in inferior leads. 1. Acute ST elevation in inferior leads, status post cardiac catheterization, 100% occluded distal RCA status post 1 drug-eluting stent placed.Also had 70% to 80% ostial stenosis of moderate caliber. Currently on Integrilin , to continue for 8 hours, loaded with Brilinta. Received aspirin. To continue dual antiplatelet therapy for 1 year. Started on low-dose beta chikis, and lisinopril, and high-dose statin. Follow the repeat troponin and echocardiogram. Monitor in the ICU.cardiology and critical care consult. 2. Diabetes. The patient is on Prandin, Januvia, metformin at home, which we will hold. Placed him on sliding scale with goal range of 140-180 and closely monitor blood sugars, may add Lantus. 3. History of depression and anxiety, on Effexor and Valium p.r.n., on amitriptyline, clomipramine. 4. Attention deficit disorder, on Ritalin. 5. Hypertension. At home, he is on valsartan 80 mg daily and he is currently placed on low-dose beta chikis and lisinopril. We will monitor his blood pressure. 6. Deep venous thrombosis prophylaxis, sequential compression devices. 7. Disposition: Close monitoring in the ICU. Level 1 full code. MTDD
[2018-11-14 04:21] LABS: Basophils # (auto) 0.03 K/uL (0-0.2); Basophils % (auto) 0.2 %; Eosinophils # (auto) 0.06 K/uL (0-0.5); Eosinophils % (auto) 0.5 %; Hematocrit (blood only) 36.4 % (42-52); Hemoglobin 12.1 g/dL (14.0-18.0); Immature Granulocytes # (auto) 0.03 K/uL (0.00-0.02); Immature Granulocytes % (auto) 0.2 %; Lymphocytes # (auto) 1.55 K/uL (1.2-3.4); Lymphocytes % (auto) 11.7 %; Mean Corpuscular Hemoglobin 27.8 pg (25-34); Mean Corpuscular Hgb Conc 33.2 g/dL (32-36); Mean Corpuscular Volume 83.5 fL (80-100); Mean Platelet Volume 9.2 fL (7.4-10.4); Monocytes # (auto) 0.89 K/uL (0.11-0.59); Monocytes % (auto) 6.7 %; Neutrophils # (auto) 10.74 K/uL (1.4-6.5); Neutrophils % (auto) 80.7 %; Platelet Count 279 K/uL (130-400); RDW Standard Deviation 39.2 fL (36.4-46.3); Red Blood Count 4.36 M/uL (4.7-6.1)
[2018-11-14 04:46] LABS: Chol HDL Ratio 3; Cholesterol 146 mg/dl (0-200); HDL Cholesterol 48 mg/dl; LDL Cholesterol Calculated 55 mg/dl; Triglycerides 213 mg/dl (0-150); VLDL Cholesterol 43 mg/dl
[2018-11-14] MEDS ORDERED: GLUCOSE 40% GEL 15 GM TUBE PO PRN (05:15)
[2018-11-14] MEDS ORDERED: DEXTROSE 50% 50 ML SYRINGE IV PRN (05:15)
[2018-11-14] MEDS ORDERED: GLUCOSE 10 TABS/TUBE PO PRN (05:15)
[2018-11-14] MEDS ORDERED: CARBOHYDRATES FOR HYPOGLYCEMIA PO PRN (05:15)
[2018-11-14] MEDS ORDERED: GLUCAGON FOR INJ 1 MG VIAL SQ PRN (05:15)
[2018-11-14] MEDS: EPTIFIBATIDE 75 MG/100 ML VIAL IV SCH (06:08)
[2018-11-14] MEDS: VENLAFAXINE HCL XR 150 MG CAPXR PO SCH (06:10)
--- NOTE | 2018-11-14 06:48 | Hospitalist Progress Note ---
Date of Service November 14, 2018 Assessment & Plan (1) ST elevation (STEMI) myocardial infarction: (2) S/P drug eluting coronary stent placement: (3) Diabetes: (4) HLD (hyperlipidemia): (5) HTN (hypertension): S/P RIAZ RCA by Dr Huff, Still in ICU on Integrelin, Likely tele today, DC 1-2 days, SSI, ambulate, ASA, BBlocker, Statin, NICOLAS-I ROS-No Headache, No Visual Changes, No Nausea, No Vomiting, No Fever, No Chills, No Neck Pain or Stiffness, No Chest Pain, No Palpitations, No SOB, No MORENO, No Cough, No Sputum, No Wheezing, No Abdominal Pain, No Diarrhea, No Hematemesis, No Hemoptysis, No Unexpected Weight Loss, No Flank pain, No Melena, No Hematochezia, No Frequency, No Urgency, No Burning, No Hematuria, No Rashes, No Diaphoresis. Appetite is Normal Physical Exam Gen-AAO x 3, NAD, Afebrile Head-NCAT, EOMI, PERRLA, Anicteric Sclera, No Posterior Pharyngeal Erythema Neck-Supple, No JVD, No Thyromegaly, No Masses, No LAD, No Bruits Lungs-Clear to Auscultation Bilaterally, No Rales, No Rhonchi, No Wheezing, No Crepitus Chest-No S4, +S1, +S2, No S3, No Murmurs, No Rubs, No Gallops, No Ectopy Abdomen-Soft, Bowel Sounds Present, Non Tender, Non Distended, No Hepatomegaly, No Splenomegaly, No Palpable Masses, No Rebound, No Rigidity, No Guarding Musculoskeletal-Full Range of Motion Bilaterally, No CVAT Extremities-No Cyanosis, No Clubbing, No Edema Nuero-Cranial Nerves II-XII grossly intact, Motor WNL, DTRs WNL, Strength WNL, Non Focal Psych-Normal Mood Results & Data Vital Signs (Past 12 Hours) Vital Signs Temp Pulse Pulse Pulse Resp BP BP 11/14/18 06:00 72 15 150/96 H 11/14/18 05:45 72 14 161/107 H 11/14/18 05:30 71 20 165/105 H 11/14/18 05:15 70 16 143/84 H 11/14/18 05:00 65 14 142/84 H 11/14/18 04:45 72 12 144/85 H 11/14/18 04:30 66 13 143/85 H 11/14/18 04:15 67 14 133/81 11/14/18 04:00 36.8 C 72 20 140/85 11/14/18 03:45 66 15 142/79 H 11/14/18 03:30 72 7 L 145/93 H 11/14/18 03:15 75 18 148/98 H 11/14/18 03:00 78 21 142/100 H 11/14/18 02:45 79 16 167/107 H 11/14/18 02:30 80 22 165/107 H 11/14/18 02:15 96 H 22 166/109 H 11/14/18 02:00 83 15 168/104 H 11/14/18 01:45 80 13 174/101 H 11/14/18 01:30 16 165/97 H 11/14/18 01:15 84 14 171/102 H 11/14/18 01:00 87 22 164/102 H 11/14/18 00:45 86 18 168/108 H 11/14/18 00:30 85 14 170/104 H 11/14/18 00:15 83 29 H 170/98 H 11/14/18 00:00 90 24 139/74 11/13/18 23:51 86 16 147/79 H 11/13/18 23:34 36.6 C 87 18 147/79 H 11/13/18 22:15 84 16 11/13/18 22:10 88 16 11/13/18 22:05 84 16 11/13/18 22:03 89 16 11/13/18 21:35 36.6 C 72 20 181/115 H BP Pulse Ox 11/14/18 06:00 97 11/14/18 05:45 95 11/14/18 05:30 95 11/14/18 05:15 97 11/14/18 05:00 99 11/14/18 04:45 95 11/14/18 04:30 96 11/14/18 04:15 96 11/14/18 04:00 96 11/14/18 03:45 96 11/14/18 03:30 95 11/14/18 03:15 95 11/14/18 03:00 94 11/14/18 02:45 97 11/14/18 02:30 96 11/14/18 02:15 96 11/14/18 02:00 96 11/14/18 01:45 97 11/14/18 01:30 96 11/14/18 01:15 97 11/14/18 01:00 97 11/14/18 00:45 96 11/14/18 00:30 96 11/14/18 00:15 95 11/14/18 00:00 96 11/13/18 23:51 99 11/13/18 23:34 96 11/13/18 22:15 147/93 H 95 11/13/18 22:10 159/96 H 96 11/13/18 22:05 159/103 H 95 11/13/18 22:03 171/98 H 97 11/13/18 21:35 98 Current Diagnoses Type 2 diabetes mellitus without complications (11/13/18) Hyperlipidemia, unspecified (11/13/18) Essential (primary) hypertension (11/13/18) ST elevation (STEMI) myocardial infarction of unspecified site (11/13/18) Acute myocardial infarction, unspecified (11/13/18) Other specified health status (11/13/18) Presence of coronary angioplasty implant and graft (11/13/18) Allergies simvastatin Allergy (Intermediate, Unverified 08/26/10 12:48) RASH Height/Weight/Isolation Height 5 ft 8 in Weight 98.9 kg Chemistry 11/13/18 21:52 Sodium 134 L Potassium 3.8 Chloride 99 Carbon Dioxide 26 Anion Gap 9.0 BUN 19 H Creatinine 1.52 H Glucose 238 H
[2018-11-14] MEDS ORDERED: PERFLUTREN LIPID MICROSPHERE (DEFINITY) IV ONE (07:23)
[2018-11-14] MEDS: INSULIN ASPART 100 UNITS/ML 3 ML PEN SC SCH ×4 (08:23→20:31)
[2018-11-14] MEDS: ATORVASTATIN 40 MG TAB PO SCH (08:24)
[2018-11-14] MEDS: TICAGRELOR 90 MG TAB PO SCH ×2 (08:24→20:28)
[2018-11-14] MEDS: ASPIRIN 81 MG ECTAB PO SCH (08:24)
[2018-11-14] MEDS: METHYLPHENIDATE HCL 10 MG TABLET PO SCH ×3 (08:39→20:13)
[2018-11-14] MEDS: VENLAFAXINE HCL XR 75 MG CAPXR PO SCH (09:56)
[2018-11-14] MEDS ORDERED: METOPROLOL TARTRATE 25 MG TAB PO STA (13:28)
--- NOTE | 2018-11-14 13:53 | Cardiology Progress Note ---
Date of Service November 14, 2018 Assessment & Plan (1) ST elevation (STEMI) myocardial infarction: RCA STEMI. Feeling better following RCA PCI. Continue aspirin 81 mg daily indefinitely. Continue Brilinta for at least 1 year. Will titrate beta- chikis. Continue NICOLAS-inhibitor, which can further be titrated as well if renal function allows. Continue high-intensity statin therapy. RCA wall motion abnormality on echo, which may improve with time and medical therapy. (2) S/P drug eluting coronary stent placement: Dual anti-platelet therapy as above. (3) CAD (coronary artery disease): Continue medical therapy as above. (4) HLD (hyperlipidemia): High-intensity statin therapy. (5) HTN (hypertension): Blood pressure elevated today. Will give metoprolol 25 mg x1 now and increase standing order of metoprolol to 25 mg twice daily. Basic metabolic panel ordered. If renal function improves or at least remains stable, can also titrate lisinopril. Disposition: Dr. Huff will resume his cardiology care tomorrow. Can be transferred from the ICU this evening from a cardiac standpoint, if no complications throughout the day. Subjective He has had some intrascapular/upper back/bilateral shoulder pain. He states it is much improved from presentation. It resolved with Tylenol. No angina. No shortness of breath, palpitations, syncope, near-syncope, edema, or bleeding. He has not had any significant pain or drainage from his right radial cath site. Review of systems: As above. Physical Exam Physical Exam: Gen.: No acute distress. Alert and oriented. HEENT: Anicteric sclera. Neck: No JVD. Cardiac: Regular. Normal S1-S2. 2/6 early peaking systolic ejection murmur. No rubs, or gallops. Pulmonary: Clear to auscultation bilaterally without wheezes, rales, or rhonchi. Abdomen: Soft, nontender, nondistended, with normoactive bowel sounds. No bruits noted. Extremities: Right radial cath site is clean, dry, and intact without erythema or discharge. 2+ right radial pulse. No edema or cyanosis. Psychiatric: Affect appears appropriate. Results & Data Vital Signs (Past 12 Hours) Vital Signs Temp Pulse Resp BP Pulse Ox 11/14/18 10:34 75 18 148/96 H 99 11/14/18 10:00 75 15 168/112 H 96 11/14/18 09:00 78 16 155/107 H 96 11/14/18 08:00 36.9 C 84 20 168/105 H 96 11/14/18 07:45 80 20 154/106 H 97 11/14/18 07:30 70 14 157/102 H 98 11/14/18 07:15 71 13 152/96 H 95 11/14/18 07:00 72 21 155/93 H 96 11/14/18 06:45 68 16 147/99 H 96 11/14/18 06:30 67 18 149/103 H 97 11/14/18 06:15 71 16 145/94 H 96 11/14/18 06:00 72 15 150/96 H 97 11/14/18 05:45 72 14 161/107 H 95 11/14/18 05:30 71 20 165/105 H 95 11/14/18 05:15 70 16 143/84 H 97 11/14/18 05:00 65 14 142/84 H 99 11/14/18 04:45 72 12 144/85 H 95 11/14/18 04:30 66 13 143/85 H 96 11/14/18 04:15 67 14 133/81 96 11/14/18 04:00 36.8 C 72 20 140/85 96 11/14/18 03:45 66 15 142/79 H 96 11/14/18 03:30 72 7 L 145/93 H 95 11/14/18 03:15 75 18 148/98 H 95 11/14/18 03:00 78 21 142/100 H 94 11/14/18 02:45 79 16 167/107 H 97 11/14/18 02:30 80 22 165/107 H 96 11/14/18 02:15 96 H 22 166/109 H 96 11/14/18 02:00 83 15 168/104 H 96 11/14/18 01:45 80 13 174/101 H 97 Laboratory Results Laboratory Results - last 24 hr 11/13/18 11/13/18 11/13/18 21:52 21:52 21:52 WBC 11.81 H RBC 4.69 L Hgb 13.7 L Hct 39.4 L MCV 84.0 MCH 29.2 MCHC 34.8 RDW Std Deviation 39.2 RDW Coeff of Aaron 13.0 Plt Count 291 MPV 9.2 Immature Gran % (Auto) 0.3 Neut % (Auto) 75.9 Lymph % (Auto) 14.1 [place] % (Auto) 7.4 Eos % (Auto) 2.0 Baso % (Auto) 0.3 Immature Gran # (Auto) 0.03 H Neut # (Auto) 8.97 H Lymph # (Auto) 1.67 [place] # (Auto) 0.87 H Eos # (Auto) 0.24 Baso # (Auto) 0.03 PT INR Activ Coag Time Kaolin Sodium 134 L Potassium 3.8 Chloride 99 Carbon Dioxide 26 Anion Gap 9.0 BUN 19 H Creatinine 1.52 H Est Cr Clr Drug Dosing 54.5 Est GFR ( Amer) 54.6 Est GFR (Non-Af Amer) 47.1 BUN/Creatinine Ratio 12.2 Glucose 238 H POC Glucose Estimat Average Glucose Hemoglobin A1c Calcium 9.8 Total Bilirubin 0.5 AST 30 ALT 35 Alkaline Phosphatase 109 POC Troponin I Troponin I 0.043 Total Protein 8.5 H Albumin 4.3 Globulin 4.2 H Albumin/Globulin Ratio 1.0 Triglycerides Cholesterol LDL Cholesterol, Calc VLDL Cholesterol, Calc HDL Cholesterol Cholesterol/HDL Ratio Lipase 518 H Nasal Screen MRSA (PCR) Hepatitis C Ab Screen 11/13/18 11/13/18 11/13/18 21:52 22:01 22:51 WBC RBC Hgb Hct MCV MCH MCHC RDW Std Deviation RDW Coeff of Aaron Plt Count MPV Immature Gran % (Auto) Neut % (Auto) Lymph % (Auto) [place] % (Auto) Eos % (Auto) Baso % (Auto) Immature Gran # (Auto) Neut # (Auto) Lymph # (Auto) [place] # (Auto) Eos # (Auto) Baso # (Auto) PT 10.0 INR 1.0 Activ Coag Time Kaolin 230 H Sodium Potassium Chloride Carbon Dioxide Anion Gap BUN Creatinine Est Cr Clr Drug Dosing Est GFR ( Amer) Est GFR (Non-Af Amer) BUN/Creatinine Ratio Glucose POC Glucose Estimat Average Glucose Hemoglobin A1c Calcium Total Bilirubin AST ALT Alkaline Phosphatase POC Troponin I 0.03 Troponin I Total Protein Albumin Globulin Albumin/Globulin Ratio Triglycerides Cholesterol LDL Cholesterol, Calc VLDL Cholesterol, Calc HDL Cholesterol Cholesterol/HDL Ratio Lipase Nasal Screen MRSA (PCR) Hepatitis C Ab Screen 11/13/18 11/14/18 11/14/18 23:10 01:22 01:30 WBC RBC Hgb Hct MCV MCH MCHC RDW Std Deviation RDW Coeff of Aaron Plt Count MPV Immature Gran % (Auto) Neut % (Auto) Lymph % (Auto) [place] % (Auto) Eos % (Auto) Baso % (Auto) Immature Gran # (Auto) Neut # (Auto) Lymph # (Auto) [place] # (Auto) Eos # (Auto) Baso # (Auto) PT INR Activ Coag Time Kaolin 246 H Sodium Potassium Chloride Carbon Dioxide Anion Gap BUN Creatinine Est Cr Clr Drug Dosing Est GFR ( Amer) Est GFR (Non-Af Amer) BUN/Creatinine Ratio Glucose POC Glucose 207 H Estimat Average Glucose Hemoglobin A1c Calcium Total Bilirubin AST ALT Alkaline Phosphatase POC Troponin I Troponin I Total Protein Albumin Globulin Albumin/Globulin Ratio Triglycerides Cholesterol LDL Cholesterol, Calc VLDL Cholesterol, Calc HDL Cholesterol Cholesterol/HDL Ratio Lipase Nasal Screen MRSA (PCR) Negative Hepatitis C Ab Screen 11/14/18 11/14/18 11/14/18 04:04 04:04 04:04 WBC 13.30 H RBC 4.36 L Hgb 12.1 L Hct 36.4 L MCV 83.5 MCH 27.8 MCHC 33.2 RDW Std Deviation 39.2 RDW Coeff of Aaron 13.0 Plt Count 279 MPV 9.2 Immature Gran % (Auto) 0.2 Neut % (Auto) 80.7 Lymph % (Auto) 11.7 [place] % (Auto) 6.7 Eos % (Auto) 0.5 Baso % (Auto) 0.2 Immature Gran # (Auto) 0.03 H Neut # (Auto) 10.74 H Lymph # (Auto) 1.55 [place] # (Auto) 0.89 H Eos # (Auto) 0.06 Baso # (Auto) 0.03 PT INR Activ Coag Time Kaolin Sodium Potassium Chloride Carbon Dioxide Anion Gap BUN Creatinine Est Cr Clr Drug Dosing Est GFR ( Amer) Est GFR (Non-Af Amer) BUN/Creatinine Ratio Glucose POC Glucose Estimat Average Glucose Pending Hemoglobin A1c Pending Calcium Total Bilirubin AST ALT Alkaline Phosphatase POC Troponin I Troponin I Total Protein Albumin Globulin Albumin/Globulin Ratio Triglycerides 213 H Cholesterol 146 LDL Cholesterol, Calc 55 VLDL Cholesterol, Calc 43 HDL Cholesterol 48 Cholesterol/HDL Ratio 3 Lipase Nasal Screen MRSA (PCR) Hepatitis C Ab Screen 11/14/18 11/14/18 11/14/18 04:04 04:04 06:17 WBC RBC Hgb Hct MCV MCH MCHC RDW Std Deviation RDW Coeff of Aaron Plt Count MPV Immature Gran % (Auto) Neut % (Auto) Lymph % (Auto) [place] % (Auto) Eos % (Auto) Baso % (Auto) Immature Gran # (Auto) Neut # (Auto) Lymph # (Auto) [place] # (Auto) Eos # (Auto) Baso # (Auto) PT INR Activ Coag Time Kaolin Sodium Potassium Chloride Carbon Dioxide Anion Gap BUN Creatinine Est Cr Clr Drug Dosing Est GFR ( Amer) Est GFR (Non-Af Amer) BUN/Creatinine Ratio Glucose POC Glucose 189 H Estimat Average Glucose Hemoglobin A1c Calcium Total Bilirubin AST ALT Alkaline Phosphatase POC Troponin I Troponin I 22.300 H* Total Protein Albumin Globulin Albumin/Globulin Ratio Triglycerides Cholesterol LDL Cholesterol, Calc VLDL Cholesterol, Calc HDL Cholesterol Cholesterol/HDL Ratio Lipase Nasal Screen MRSA (PCR) Hepatitis C Ab Screen Neg 11/14/18 11/14/18 11:18 11:23 WBC RBC Hgb Hct MCV MCH MCHC RDW Std Deviation RDW Coeff of Aaron Plt Count MPV Immature Gran % (Auto) Neut % (Auto) Lymph % (Auto) [place] % (Auto) Eos % (Auto) Baso % (Auto) Immature Gran # (Auto) Neut # (Auto) Lymph # (Auto) [place] # (Auto) Eos # (Auto) Baso # (Auto) PT INR Activ Coag Time Kaolin Sodium Potassium Chloride Carbon Dioxide Anion Gap BUN Creatinine Est Cr Clr Drug Dosing Est GFR ( Amer) Est GFR (Non-Af Amer) BUN/Creatinine Ratio Glucose POC Glucose 229 H Estimat Average Glucose Hemoglobin A1c Calcium Total Bilirubin AST ALT Alkaline Phosphatase POC Troponin I Troponin I 37.900 H* Total Protein Albumin Globulin Albumin/Globulin Ratio Triglycerides Cholesterol LDL Cholesterol, Calc VLDL Cholesterol, Calc HDL Cholesterol Cholesterol/HDL Ratio Lipase Nasal Screen MRSA (PCR) Hepatitis C Ab Screen Diagnostic Findings Telemetry personally reviewed: 13 beat run of ventricular tachycardia at 10:11 p.m.. Otherwise, sinus rhythm. Cardiac catheterization 11/13/2018: LM -angiographically normal LAD -moderate caliber vessel, proximal luminal irregularities, mid segment 40% disease, distal luminal irregularities as wraps around apex. 70 to 80% ostial stenosis of moderate caliber second diagonal Circumflex -moderate caliber vessel, luminal irregularities, gives off large OM 2 without significant disease RCA -moderate caliber vessel, dominant, 20 to 30% proximal, mid segment luminal irregularities, 100% acute distal occlusion prior to bifurcation with PDA. Distal RCA lesion predilated with 2.5 compliant balloon followed by 3.0 x 22 mm [place] drug-eluting stent deployment. Echo 11/14/2018 images personally reviewed: Upon preliminary review, RCA wall motion abnormality noted with reduced LV systolic function. Formal review to follow. Medications Administered Current Inpatient Medications Acetaminophen (Tylenol) 650 mg PO Q4H PRN PRN Reason: Mild Pain (scale 1-3) Stop: 12/13/18 23:32 Last Admin: 11/14/18 09:56 Dose: 650 mg Documented by: Amitriptyline HCl (Elavil) 50 mg PO [facility] Stop: 12/14/18 20:59 Aspirin (Ecotrin Ectab) 81 mg PO [facility] Stop: 12/14/18 08:59 Last Admin: 11/14/18 08:24 Dose: 81 mg Documented by: Atorvastatin Calcium (Lipitor) 80 mg PO [facility] Stop: 12/14/18 08:59 Last Admin: 11/14/18 08:24 Dose: 80 mg Documented by: Dextrose (Dextrose 50%) 25 - 50 ml IV UD PRN; Protocol PRN Reason: Hypoglycemia Protocol Stop: 12/14/18 05:14 Diazepam (Valium) 5 mg PO DAILY PRN PRN Reason: Agitation Stop: 12/14/18 02:10 Last Admin: 11/14/18 02:16 Dose: 5 mg Documented by: Glucagon (Glucagen) 1 mg SQ UD PRN; Protocol PRN Reason: Hypoglycemia Protocol Stop: 12/14/18 05:14 Glucose (Glucose 40%) 15 - 30 gm PO UD PRN; Protocol PRN Reason: Hypoglycemia Protocol Stop: 12/14/18 05:14 Glucose (Dex4 Glucose) 4 - 8 tabs PO UD PRN; Protocol PRN Reason: Hypoglycemia Protocol Stop: 12/14/18 05:14 Insulin Aspart (Novolog Flexpen) 0 units SC [facility] Stop: 12/14/18 07:29 Last Admin: 11/14/18 11:54 Dose: 9 units Documented by: Lisinopril (Zestril) 5 mg PO QA [facility] Stop: 12/14/18 08:59 Last Admin: 11/14/18 08:24 Dose: 5 mg Documented by: Menthol (Nice) 1 nichole BUCCAL Q2H PRN PRN Reason: Sore Throat Stop: 12/14/18 02:58 Methylphenidate HCl (Ritalin) 10 mg PO TID [facility] Stop: 12/14/18 08:59 Last Admin: 11/14/18 13:43 Dose: Not Given Documented by: Metoprolol Tartrate (Lopressor) 25 mg PO BID [facility] Stop: 12/14/18 20:59 Miscellaneous (Icu Protocol For Hyperglycemia) 1 ea N/A PRN PRN; Protocol PRN Reason: Hyperglycemia Protocol Stop: 11/15/18 23:37 Miscellaneous (Carbohydrates For Hypoglycemia) 15 - 30 gm PO UD PRN PRN Reason: Hypoglycemia Treatment Stop: 12/14/18 05:14 Ondansetron HCl (Zofran) 4 mg IV Q6H PRN PRN Reason: Nausea And Vomiting Stop: 12/13/18 23:32 Ticagrelor (Brilinta) 90 mg PO BID [facility] Stop: 12/14/18 08:59 Last Admin: 11/14/18 08:24 Dose: 90 mg Documented by: Venlafaxine HCl (Effexor Extended Release) 150 mg PO DAILYBB [facility] Stop: 12/14/18 06:29 Last Admin: 11/14/18 06:10 Dose: 150 mg Documented by: Venlafaxine HCl (Effexor Extended Release) 75 mg PO DAILYBL [facility] Stop: 12/14/18 10:29 Last Admin: 11/14/18 09:56 Dose: 75 mg Documented by: PG Care Time/CCT Total # of Minutes Spent Total Time Spent with Patient: Total time spent is greater than 50% in coordination of care (as documented) at patient's floor/unit and/or counseling patient:
[2018-11-14 14:41] LABS: Calcium 9.4 mg/dl (8.5-10.1); Creatinine Clr Calc Pharmacy 55.6 ml/min; Est GFR (African American) 55.9; Est GFR (Non-African American) 48.2; Potassium 3.8 mmol/L (3.5-5.1)
[2018-11-14] MEDS ORDERED: NovoLIN-R INSULIN PER UNIT CHARGE IV STA (16:53)
[2018-11-14] MEDS: AMITRIPTYLINE HCL 25 MG TAB PO SCH (20:28)
[2018-11-14] MEDS: INSULIN GLARGINE SOLOSTAR 100 UNITS/ML 3 ML PEN SC SCH (20:29)
[2018-11-15 04:39] LABS: Hematocrit (blood only) 36.1 % (42-52); Hemoglobin 11.8 g/dL (14.0-18.0); Mean Corpuscular Hemoglobin 27.4 pg (25-34); Mean Corpuscular Hgb Conc 32.7 g/dL (32-36); Mean Platelet Volume 9.1 fL (7.4-10.4); Platelet Count 269 K/uL (130-400); RDW Coefficient of Variation 13.3 % (11.5-14.5); White Blood Count 11.84 K/uL (4.8-10.8)
[2018-11-15 04:57] LABS: BUN Creatinine Ratio 12.9 (10-20); Calcium 8.7 mg/dl (8.5-10.1); Est GFR (African American) 56.3; Est GFR (Non-African American) 48.6; Magnesium 1.6 mg/dl (1.8-2.4); Phosphorus 3.8 mg/dl (2.5-4.9); Potassium 3.7 mmol/L (3.5-5.1)
[2018-11-15 05:44] LABS: Estimated Average Glucose 278 mg/dl; Hemoglobin A1C 11.3 % (4.5-5.6)
--- NOTE | 2018-11-15 06:28 | Critical Care Progress Note ---
Date of Service November 15, 2018 Assessment & Plan (1) CAD (coronary artery disease): Reason Critically Ill: 68-year-old male with acute inferior ST segment elevation myocardial infarction status post coronary catheterization with RIAZ x1 to the RCA requiring close hemodynamic monitoring status post coronary intervention. NEURO - [facility] ICU: NEGATIVE CARDIAC/VASCULAR - Acute inferior ST elevation myocardial infarction status post PCI with RIAZ x1 to the RCA: Hemodynamically stable not requiring any pressor medications Troponins trended up yesterday .0403 -> 22.3 -> 37.9 -> 43 may recheck today to make sure plateaued Monitor blood pressures/heart rates closely in the setting of RCA injury. Echo showing EF of 45-50% with severe hypokinesis to akinesis of base to mid inferior and base to mid inferoseptal wall segments consistent with inferior MS noted in ECG EKG: Sinus rhythm with left bundle branch block. Acute ST elevation noted in inferior leads. QTc 474ms. Monitor on telemetry. Continuing ASA 81, Atorvastatin 80 mg, Lisinopril 5 mg metoprolol 25 mg BID and ticagrelor 90 mg RESPIRATORY - No h/o pulmonary disease. Saturating well on room air. Subjectively no shortness of breath GI/NUTRITION - Heart healthy diet. RENAL/LYTES - Tolerating PO - No concerns at this time. ENDO - DMII BSGs per unit protocol. ISS --> gtt per unit policy. No h/o Thyroid Dz. HEME - Stable H&H ID - No concerns for infectious contribution at this time. LINES/IV ACCESS - PIVs x2 DVT PROPHYLAXIS SCD's F/E/N: PO intake heart healthy diet Dispo: Likely downgrade to telemetry today (2) S/P drug eluting coronary stent placement: (3) Diabetes: (4) HLD (hyperlipidemia): (5) Chest pain: (6) ST elevation (STEMI) myocardial infarction: (7) Admitted to intensive care unit: (8) Acute MS: (9) HTN (hypertension): Supervising Physician Co-Signing Physician Notes Patient was transferred out of ICU prior to my evaluation. I agree with the plan as documented by Dr. Weiss. Subjective Mr. Doss is resting comfortably this morning, tells me last night was his first decent sleep. He was subjectively short of breath yesterday, however that is now much improved. He does not have any chest pain or the radiating back pain that initially brought him into the emergency room. 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 Review of Systems Constitutional: no fever, no chills, no sweats, no body aches and no fatigue Respiratory: no cough and no dyspnea Cardiovascular: no chest pain, no dyspnea, no palpitations, no lightheadedness and no calf pain Gastrointestinal: no abdominal pain, no nausea and no vomiting Physical Exam Constitutional: well developed, well nourished, + obese, cooperative and comfortable; no acute distress and no altered mental status Eyes: PERRL, conjunctivae normal, anicteric sclerae Respiratory: normal respiratory effort, lungs clear to auscultation Cardiovascular: Rate/Rhythm: regular rate and regular rhythm Heart Sounds: no click, no gallop, no murmur and no cardiac rub Extremities: no calf tenderness Gastrointestinal (Abdomen): Inspection/Auscultation: abdomen normal to inspection; abdomen not distended Percussion/Palpation: abdomen soft; abdomen nontender Skin: no rashes, warm and dry Psychiatric: Orientation: alert, oriented x 3 and cooperative Affect: + anxious affect Results & Data Vital Signs (Past 12 Hours) Vital Signs Temp Pulse Resp BP Pulse Ox 11/15/18 03:09 74 18 108/61 92 11/15/18 02:00 73 16 134/83 98 11/15/18 01:00 72 16 114/67 96 11/15/18 00:00 36.6 C 71 18 111/59 L 97 11/14/18 23:00 71 16 106/53 L 96 11/14/18 22:00 73 16 125/80 94 11/14/18 21:01 82 17 94 11/14/18 21:00 81 12 123/88 95 11/14/18 20:09 75 20 139/91 96 11/14/18 20:06 81 20 97 11/14/18 19:30 76 11/14/18 19:28 37.1 C 11/14/18 19:01 85 17 95 11/14/18 19:00 37.1 C 78 15 123/73 95 PG Care Time/CCT Total # of Minutes Spent Total Time Spent with Patient: Total time spent is greater than 50% in coordination of care (as documented) at patient's floor/unit and/or counseling patient: Resident Activity Tracking Resident Involvement: Resident Care Provided Care Provided: Adult Hospital Medicine
--- NOTE | 2018-11-15 06:41 | Hospitalist Progress Note ---
Date of Service November 15, 2018 Assessment & Plan (1) ST elevation (STEMI) myocardial infarction: (2) S/P drug eluting coronary stent placement: (3) Diabetes: (4) HLD (hyperlipidemia): (5) HTN (hypertension): S/P RIAZ RCA by Dr Huff, transfer to [place] later today or 11/16, SSI, amb ulate, ASA, BBlocker, Statin, NICOLAS-I, no new issues, labs checked ROS-No Headache, No Visual Changes, No Nausea, No Vomiting, No Fever, No Chills, No Neck Pain or Stiffness, No Chest Pain, No Palpitations, No SOB, No MORENO, No Cough, No Sputum, No Wheezing, No Abdominal Pain, No Diarrhea, No Hematemesis, No Hemoptysis, No Unexpected Weight Loss, No Flank pain, No Melena, No Hematochezia, No Frequency, No Urgency, No Burning, No Hematuria, No Rashes, No Diaphoresis. Appetite is Normal Physical Exam Gen-AAO x 3, NAD, Afebrile Head-NCAT, EOMI, PERRLA, Anicteric Sclera, No Posterior Pharyngeal Erythema Neck-Supple, No JVD, No Thyromegaly, No Masses, No LAD, No Bruits Lungs-Clear to Auscultation Bilaterally, No Rales, No Rhonchi, No Wheezing, No Crepitus Chest-No S4, +S1, +S2, No S3, No Murmurs, No Rubs, No Gallops, No Ectopy Abdomen-Soft, Bowel Sounds Present, Non Tender, Non Distended, No Hepatomegaly, No Splenomegaly, No Palpable Masses, No Rebound, No Rigidity, No Guarding Musculoskeletal-Full Range of Motion Bilaterally, No CVAT Extremities-No Cyanosis, No Clubbing, No Edema Nuero-Cranial Nerves II-XII grossly intact, Motor WNL, DTRs WNL, Strength WNL, Non Focal Psych-Normal Mood Results & Data Vital Signs (Past 12 Hours) Vital Signs Temp Pulse Resp BP Pulse Ox 11/15/18 03:09 74 18 108/61 92 11/15/18 02:00 73 16 134/83 98 11/15/18 01:00 72 16 114/67 96 11/15/18 00:00 36.6 C 71 18 111/59 L 97 11/14/18 23:00 71 16 106/53 L 96 11/14/18 22:00 73 16 125/80 94 11/14/18 21:01 82 17 94 11/14/18 21:00 81 12 123/88 95 11/14/18 20:09 75 20 139/91 96 11/14/18 20:06 81 20 97 11/14/18 19:30 76 11/14/18 19:28 37.1 C 11/14/18 19:01 85 17 95 11/14/18 19:00 37.1 C 78 15 123/73 95
[2018-11-15] MEDS: VENLAFAXINE HCL XR 150 MG CAPXR PO SCH (06:47)
[2018-11-15] MEDS: ATORVASTATIN 40 MG TAB PO SCH (07:27)
[2018-11-15] MEDS: TICAGRELOR 90 MG TAB PO SCH ×2 (07:27→20:39)
[2018-11-15] MEDS: ASPIRIN 81 MG ECTAB PO SCH (07:27)
[2018-11-15] MEDS: METOPROLOL TARTRATE 25 MG TAB PO SCH ×2 (07:30→20:39)
[2018-11-15] MEDS: LISINOPRIL 5 MG TAB PO SCH (07:30)
[2018-11-15] MEDS: INSULIN ASPART 100 UNITS/ML 3 ML PEN SC SCH ×4 (08:33→20:40)
[2018-11-15] MEDS: METHYLPHENIDATE HCL 10 MG TABLET PO SCH ×3 (08:33→20:43)
[2018-11-15] MEDS: VENLAFAXINE HCL XR 75 MG CAPXR PO SCH (10:57)
--- NOTE | 2018-11-15 15:56 | Cardiology Progress Note ---
Date of Service November 15, 2018 Assessment & Plan (1) ST elevation (STEMI) myocardial infarction: 2. Type 2 diabetes 3. Chronic renal insufficiency 4. Anemia 5. Nonsustained VT 6. Hypertension Patient feeling well today. No recurrent chest pain. Troponin peaked. Inferior wall motion abnormality on echo but overall function preserved. No access site complications. Still having short episodes of nonsustained VT Recommend watching on telemetry one more night. -- Will increase metoprolol to 37.5 mg bid -- continue DAPT with ASA, ticagrelor -- continue current lisinopril, statin Likely home tomorrow AM with cardiology follow-up with me in 2 weeks. Subjective Feeling well this afternoon. Denies any chest pain. No significant shortness of breath. Telemetry reviewedruns of nonsustained VT less than 10 beats, increased frequency this afternoon Review of Systems Review of Systems: All systems reviewed & are unremarkable except as noted in HPI & below Physical Exam Physical Exam: General: Comfortable, no acute distress HEENT: Sclerae anicteric, mucous membranes moist Lungs: Clear to auscultation bilaterally, no rhonchi or wheezes Cardiac: Regular rate and rhythm, no murmurs. Abdomen: Soft, nontender, nondistended, positive bowel sounds. Extremities: Warm, well perfused, no edema. Right radial artery access site with no ecchymosis, hematoma. Distal pulse and sensation intact. Skin: No rashes or lesions. Neuro: Nonfocal Psych: Alert orient x3, normal affect and mood Results & Data Vital Signs (Past 12 Hours) Vital Signs Temp Pulse Pulse Pulse Resp BP BP 11/15/18 15:36 98.1 F 81 18 110/68 11/15/18 15:27 87 11/15/18 11:28 98.6 F 66 18 111/71 11/15/18 07:28 98.2 F 55 L 18 134/76 11/15/18 06:00 79 16 114/62 11/15/18 05:00 75 18 98/62 L 11/15/18 04:00 97.9 F 74 17 108/60 Pulse Ox 11/15/18 15:36 96 11/15/18 15:27 11/15/18 11:28 95 11/15/18 07:28 96 11/15/18 06:00 94 11/15/18 05:00 94 11/15/18 04:00 93 PG Care Time/CCT Total # of Minutes Spent Total Time Spent with Patient: Total time spent is greater than 50% in coordination of care (as documented) at patient's floor/unit and/or counseling patient:
[2018-11-15] MEDS: INSULIN GLARGINE SOLOSTAR 100 UNITS/ML 3 ML PEN SC SCH (20:38)
[2018-11-15] MEDS: AMITRIPTYLINE HCL 25 MG TAB PO SCH (20:39)
[2018-11-15] MEDS ORDERED: diazePAM 5 MG TABLET PO PRN (20:52)
[2018-11-16] MEDS: VENLAFAXINE HCL XR 150 MG CAPXR PO SCH (05:55)
[2018-11-16 06:42] LABS: Hematocrit (blood only) 36.5 % (42-52); Hemoglobin 12.1 g/dL (14.0-18.0); Mean Corpuscular Hemoglobin 28.3 pg (25-34); Mean Corpuscular Hgb Conc 33.2 g/dL (32-36); Mean Corpuscular Volume 85.3 fL (80-100); Mean Platelet Volume 9.6 fL (7.4-10.4); Platelet Count 261 K/uL (130-400); RDW Coefficient of Variation 13.4 % (11.5-14.5); RDW Standard Deviation 41.1 fL (36.4-46.3); Red Blood Count 4.28 M/uL (4.7-6.1); White Blood Count 10.81 K/uL (4.8-10.8)
[2018-11-16 07:09] LABS: BUN Creatinine Ratio 15.2 (10-20); Calcium 8.9 mg/dl (8.5-10.1); Creatinine Clr Calc Pharmacy 53.2 ml/min; Est GFR (African American) 52.9; Est GFR (Non-African American) 45.6; Potassium 3.7 mmol/L (3.5-5.1)
[2018-11-16 07:33] VITALS: BP 119/79; TEMP 98.1; O2SAT 95
[2018-11-16] MEDS: INSULIN ASPART 100 UNITS/ML 3 ML PEN SC SCH ×2 (08:07→12:16)
[2018-11-16] MEDS: ASPIRIN 81 MG ECTAB PO SCH (08:11)
[2018-11-16] MEDS: TICAGRELOR 90 MG TAB PO SCH (08:11)
[2018-11-16] MEDS: ATORVASTATIN 40 MG TAB PO SCH (08:12)
[2018-11-16] MEDS: METOPROLOL TARTRATE 25 MG TAB PO SCH (08:12)
[2018-11-16] MEDS: LISINOPRIL 5 MG TAB PO SCH (08:13)
[2018-11-16] MEDS: METHYLPHENIDATE HCL 10 MG TABLET PO SCH (08:21)
--- NOTE | 2018-11-16 08:27 | Discharge Summary ---
Date of Service November 16, 2018 Admission HPI Per Admitting Provider 68-year-old male with past medical history significant for type 2 diabetes, hyperlipidemia, major depression, hypertension, anxiety, attention deficit disorder, presents with chest pain. Yesterday evening at 8:00 p.m., he noticed pain in the back and also in the shoulders, radiated to his biceps. It was severe in nature. came home around 9:00 p.m. and she thought that the patient was breathing hard and they came to the hospital and the EKG showed ST elevation SD in the inferior leads . Heart alert was called and status post cardiac catheterization and was found to have 100% occluded distal RCA status post 1 drug-eluting stent and also 70% to 80% ostial stenosis of moderate caliber of second diagonal. Because of heavy thrombus burden, he was placed on integrin to be continued for 8 hours, Was loaded with Brilinta. Given aspirin. Currently, patient still has some back pain but his shoulder pain is improved. Resting comfortably. Denies any shortness of breath, no cough, no fever, no chills, no headache, no blurred vision, no earache, no runny nose, no sore throat. Appetite is okay. Otherwise, no nausea, no abdominal pain. Normal bowel and bladder movements. No hematuria, no black stools or blood in the stools. No swelling in the legs. No easy bruising or bleeding. Otherwise, he was doing okay until this happened. Admission Exam Per Admitting Provider GENERAL: The patient is of moderate build, not in acute distress. VITAL SIGNS: Temperature 36.6, pulse 86, respiratory rate 18, blood pressure 165/108, oxygen 96% on room air. HEENT: No pallor, no icterus. NECK: No neck masses. Supple. CARDIOVASCULAR: S1, S2 heard, regular rate and rhythm, no murmur, no gallop. RESPIRATORY SYSTEM: Normal AP diameter. No accessory muscle use. No wheezing, no crackles. ABDOMEN: Soft, bowel sounds present, nontender. No distention. CENTRAL NERVOUS SYSTEM: Nonfocal. EXTREMITIES: No edema, no erythema. Right wrist cath site, no drainage seen. Hematoma seen. Principal Diagnosis STEMI DM II HLD HTN Obesity Discharge Exam ROS-No Headache, No Visual Changes, No Nausea, No Vomiting, No Fever, No Chills, No Neck Pain or Stiffness, No Chest Pain, No Palpitations, No SOB, No MORENO, No Cough, No Sputum, No Wheezing, No Abdominal Pain, No Diarrhea, No Hematemesis, No Hemoptysis, No Unexpected Weight Loss, No Flank pain, No Melena, No Hematochezia, No Frequency, No Urgency, No Burning, No Hematuria, No Rashes, No Diaphoresis. Appetite is Normal Physical Exam Gen-AAO x 3, NAD, Afebrile Head-NCAT, EOMI, PERRLA, Anicteric Sclera, No Posterior Pharyngeal Erythema Neck-Supple, No JVD, No Thyromegaly, No Masses, No LAD, No Bruits Lungs-Clear to Auscultation Bilaterally, No Rales, No Rhonchi, No Wheezing, No Crepitus Chest-No S4, +S1, +S2, No S3, No Murmurs, No Rubs, No Gallops, No Ectopy Abdomen-Soft, Bowel Sounds Present, Non Tender, Non Distended, No Hepatomegaly, No Splenomegaly, No Palpable Masses, No Rebound, No Rigidity, No Guarding Musculoskeletal-Full Range of Motion Bilaterally, No CVAT Extremities-No Cyanosis, No Clubbing, No Edema Nuero-Cranial Nerves II-XII grossly intact, Motor WNL, DTRs WNL, Strength WNL, Non Focal Psych-Normal Mood Discharge Data Allergies Allergy/AdvReac Type Severity Reaction Status Date / Time simvastatin Allergy Intermediate RASH Unverified 08/26/10 12:48 Consultations 11/13/18 23:38 Consult Cardiac Rehabilitation Routine Consult Case Management - Discharge Planning Routine 11/13/18 23:39 Consult Color Finisher Routine 11/14/18 01:20 Consult Cardiology Routine Consult Color Finisher Routine Procedures Performed Operation Date: 11/13/18 10:15 Actual Procedures s Aspiration/PCI w/RIAZ for Stemi - German Huff MD s Cineradiography w/Routine Exam - German Huff MD p Cath, Left with Cors and Vent - German Huff MD Ordered Studies 11/13/18 22:13 CL Cath Imgs for PACS use only Stat Current Diagnoses Type 2 diabetes mellitus without complications (11/13/18) Hyperlipidemia, unspecified (11/13/18) Essential (primary) hypertension (11/13/18) ST elevation (STEMI) myocardial infarction of unspecified site (11/13/18) Acute myocardial infarction, unspecified (11/13/18) Atherosclerotic heart disease of [place] coronary artery without angina pectoris (11/13/18) Chest pain, unspecified (11/13/18) Other specified health status (11/13/18) Presence of coronary angioplasty implant and graft (11/13/18) Allergies simvastatin Allergy (Intermediate, Unverified 08/26/10 12:48) RASH Height/Weight/Isolation Height 5 ft 8 in Weight 99.3 kg Chemistry 11/14/18 11/15/18 11/16/18 14:12 04:21 06:06 Sodium 132 L 135 L 136 Potassium 3.8 3.7 3.7 Chloride 97 L 100 103 Carbon Dioxide 26 26 26 Anion Gap 9.0 9.0 7.0 BUN 21 H 19 H 24 H Creatinine 1.49 H 1.48 H 1.56 H Glucose 262 H 191 H 181 H Hospital Course (1) ST elevation (STEMI) myocardial infarction: (2) S/P drug eluting coronary stent placement: (3) Diabetes: (4) HLD (hyperlipidemia): (5) HTN (hypertension): S/P RIAZ RCA by Dr Huff, DC Home, ASA, BBlocker, Statin, NICOLAS-I, no new issues, labs checked, will discuss DM regimen c Dr Johnson and he will adjust the regimen as he wishes ROS-No Headache, No Visual Changes, No Nausea, No Vomiting, No Fever, No Chills, No Neck Pain or Stiffness, No Chest Pain, No Palpitations, No SOB, No MORENO, No Cough, No Sputum, No Wheezing, No Abdominal Pain, No Diarrhea, No Hematemesis, No Hemoptysis, No Unexpected Weight Loss, No Flank pain, No Melena, No Hematochezia, No Frequency, No Urgency, No Burning, No Hematuria, No Rashes, No Diaphoresis. Appetite is Normal Physical Exam Gen-AAO x 3, NAD, Afebrile Head-NCAT, EOMI, PERRLA, Anicteric Sclera, No Posterior Pharyngeal Erythema Neck-Supple, No JVD, No Thyromegaly, No Masses, No LAD, No Bruits Lungs-Clear to Auscultation Bilaterally, No Rales, No Rhonchi, No Wheezing, No Crepitus Chest-No S4, +S1, +S2, No S3, No Murmurs, No Rubs, No Gallops, No Ectopy Abdomen-Soft, Bowel Sounds Present, Non Tender, Non Distended, No Hepatomegaly, No Splenomegaly, No Palpable Masses, No Rebound, No Rigidity, No Guarding Musculoskeletal-Full Range of Motion Bilaterally, No CVAT Extremities-No Cyanosis, No Clubbing, No Edema Nuero-Cranial Nerves II-XII grossly intact, Motor WNL, DTRs WNL, Strength WNL, Non Focal Psych-Normal Mood Total Time Total Time Spent Total Time Spent (In Minutes): 45 mins Total Time Includes: Examination of the Patient, Discharge Planning, Medication Reconciliation and Communication With Other Providers Discharge Plan Discharge Items Patient Disposition: Home - Self-Care Reason For Visit: STEMI Discharge Diagnosis: STEMI DM II HLD HTN Obesity Condition on Discharge: Good Activity: Per Instructions section Activity Comment: See cardiology Post Cath instuctions Lifting: Gradually increase as tolerated Bathing: No limitations Sexual Activity: When tolerated Exercise/Sports: Gradually increase as tolerated Driving/Machine Use: No limitations Weightbearing: Full weightbearing Non-emergency contact: Primary Care Provider and Telecom Billing Analyst Call non-emergency contact if: you have any medication questions Follow-up/Referrals: German Huff MD [Physician] - (follow up in 2 weeks) Naveen Johnson MD [Primary Care Provider] - Diet: Carb Consistent or DM2 and Heart Healthy Addtl Attending Provider Instructions: AIC too high, DM regimen to be adjusted by PCP Pending Studies at Discharge: No Stand-Alone Forms: My [facility] Medications and DC Order Prescriptions: New atorvastatin 40 mg Tablet 80 mg PO QAM Qty: 30 RF: 0 lisinopril [Zestril] 5 mg Tablet 5 mg PO QAM Qty: 30 RF: 0 Brilinta 90 mg Tablet 90 mg PO BID Qty: 60 RF: 0 aspirin [Ecotrin Low Strength] 81 mg Tablet,Delayed Release (Dr/Ec) 81 mg PO QAM Qty: 30 RF: 0 metoprolol tartrate 25 mg Tablet 37.5 mg PO BID Qty: 90 RF: 0 Continued Amitriptyline Hcl (Elavil) 50 MG tablet 50 mg PO DAILY Qty: 0 RF: 0 Clomipramine Hcl (Anafranil *) 50 MG capsule 50 mg PO TID Qty: 0 RF: 0 Metformin HCL (Glucophage *) 1,000 MG tablet 1,000 mg PO BID Qty: 0 RF: 0 Methylphenidate (Ritalin) 10 MG tablet 10 mg PO TID Qty: 0 RF: 0 Effexor XR 75 mg 150 mg PO DAILYBB RF: 0 Effexor XR 75 mg 75 mg PO DAILYBL RF: 0 repaglinide [Prandin] 2 mg tablet 2 mg PO AC RF: 0 Januvia 100 mg Tablet 100 mg PO DAILY RF: 0 Discontinued ATORVASTATIN (LIPITOR) 20 MG tablet 20 mg PO DAILY Qty: 0 RF: 0 Diazepam (Valium) 5 MG tablet 5 mg PO DAILY PRN Qty: 0 RF: 0 valsartan 80 mg Tablet 80 mg PO DAILY RF: 0 Discharge Orders: Discharge Order (Routine); Ordered 11/16/18 Ordered By: Donovan Macias Admission Data Admit Date/Time: 11/13/18 23:38 Attending Provider: Donovan Macias Admit Provider: eRne Navarro Primary Care Provider: Naveen Johnson Other Providers: Jonny Spring ; German Huff ; Angel Mcneil
--- NOTE | 2018-11-16 09:42 | Cardiology Progress Note ---
Date of Service November 16, 2018 Assessment & Plan (1) ST elevation (STEMI) myocardial infarction: 2. Type 2 diabetes 3. Chronic renal insufficiency 4. Anemia 5. Nonsustained VT 6. Hypertension Patient stable from a cardiac standpoint okay for discharge today. -- continue DAPT with ASA, ticagrelor Continue current metoprolol -- continue current lisinopril, statin Follow-up with me in 2 weeks. Subjective Feeling well this morning. Denies any chest pain. Denies any palpitations. No significant pain at right radial artery access site. Telemetry reviewedintermittent PVCs, few runs of NSVT longest 6 beats overnight. Review of Systems Review of Systems: All systems reviewed & are unremarkable except as noted in HPI & below Physical Exam Physical Exam: General: Comfortable, no acute distress HEENT: Sclerae anicteric, mucous membranes moist Lungs: Clear to auscultation bilaterally, no rhonchi or wheezes Cardiac: Regular rate and rhythm, no murmurs. Abdomen: Soft, nontender, nondistended, positive bowel sounds. Extremities: Warm, well perfused, no edema. Right radial artery access site with no ecchymosis, hematoma. Distal pulse and sensation intact. Skin: No rashes or lesions. Neuro: Nonfocal Psych: Alert orient x3, normal affect and mood Results & Data Vital Signs (Past 12 Hours) Vital Signs Temp Pulse Pulse Resp BP Pulse Ox 11/16/18 09:26 98.1 F 74 18 119/79 95 11/16/18 07:31 98.1 F 74 18 119/79 95 11/16/18 04:15 98.6 F 76 18 94/54 L 96 11/15/18 23:35 70 11/15/18 23:34 99.5 F 72 20 110/69 98 PG Care Time/CCT Total # of Minutes Spent Total Time Spent with Patient: Total time spent is greater than 50% in coordination of care (as documented) at patient's floor/unit and/or counseling patient:
[2018-11-16] MEDS: VENLAFAXINE HCL XR 75 MG CAPXR PO SCH (10:22)
[2018-11-16 13:18] VITALS: PULSE 74
== END 2018-11-16 14:32 | disposition home or self-care (01) | DRG 247 ==
LOC: ED 21:34 → CC 22:19 → 1E 23:38 → SUATTDRO 23:38 → 2W 11-15 07:07
DX: Z79.899 Other long term (current) drug therapy; F41.9 Anxiety disorder, unspecified; Z79.84 Long term (current) use of oral hypoglycemic drugs; E11.9 Type 2 diabetes mellitus without complications; E78.5 Hyperlipidemia, unspecified; I21.19 ST elevation (STEMI) myocardial infarction involving other coronary artery of inferior wall; I10 Essential (primary) hypertension; F32.9 Major depressive disorder, single episode, unspecified; Z68.33 Body mass index [BMI] 33.0-33.9, adult; E66.9 Obesity, unspecified

== ENCOUNTER 2024-02-13 20:08 | Inpatient (IN) ==
--- OUTSIDE RECORDS SUMMARY | 2024-02-13 20:15 | External Medical Summary | Summary of Care ---
Author Name Unknown Organization [facility] Address [address] [place] [address] Phone [phone] Care Team Providers Care Principal Embedded Software Engineer Name Role Phone Alex ZARATE MD, Naveen Araujo Primary Care Provider [phone] Reason for Referral * Evaluate & Treat - Unlimited Visits (Within 3 days (urgent)) - Authorized Specialty Diagnoses / Procedures Referred By Nigel zepeda Referred To Contact HOME CARE / Home Care Diagnoses Partial thickness burn of foot, unspecified laterality, initial encounter Jenise Wyatt PA-C [address] [place] [address] Phone: tel: fax: Referral ID Status Reason Start Date Expiration Date Visits Requested Visits Authorized [id number] Authorized Specialty Services Required 4 [phone] Question Answer Referral Priority Within 3 days (urgent) Where should this appointment be scheduled? [facility] Comments Documentation of Tvic-bv-Icea Encounter Addendum Patient Name: Prashanth Doss I certify that this patient is under my care and that I, or a nurse practitioner or physician's insurance assistant working with me, had a [id number] encounter that meets the physician [id number] encounter requirements with this patient on: 02/11/24. The encounter with the patient was in whole, or in part, for the following medical condition, which is the primary reason for home health care (List medical condition): Wound care, for 2nd degree burn I certify that, based on my findings, the following services are medically necessary home health services: Nursing To provide the following care/treatments: (All hospitalists not following the patient after discharge should complete this section): wound care for 2nd degree [place] on both feet Primary Care Physician to follow home care plan of care after discharge: Naveen Johnson My clinical findings support the need for the above services because: pt is over 72 y/o, has Type II diabetes and lives alone Further, I certify that my clinical findings support that this patient is homebound (i.e. Absences from home require considerable and taxing effort and are for medical reasons or orthodoxy services or infrequently or of short duration when for other reason) because: The [place] are on his feet making it very difficulty to ambulate Physician Signature: Jenise Wyatt PA-C Date of Signature: 02/11/24 Physician Printed Name: Jenise Wyatt PA-C Reason for Visit * Reason Comments Burn Boiling water to the top of both feet and to the sides Encounter Details Date Type Department Care Team (Latest Contact Info) Description 02/11/2024 4:00 PM EST Convenient Care Visit [facility] [address] [place] [address] Jenise Wyatt PA-C [address] [place] [address] Partial thickness burn of foot, unspecified laterality, initial encounter* Allergies Active Allergy Reactions Criticality Noted Date Comments Diazepam Neuro complications (Please comment) 05/25/2018 Severe headaches (able to take trade name "valium" without incident Simvastatin Rash 12/16/2011 documented as of this encounter (statuses as of 02/11/2024) Medications VITAMIN C 500 MG PO TABSIndications:DM type 2, causing other manifestations daily 60 0 04/13/19 09 Active MULTIVITAMIN/GEAR SETTER AL FORMULA OR TABSIndications:DM type 2, causing other manifestations 1 TABLET DAILY 30 0 04/13/19 09 Active VITAMIN E 400 UNIT PO CAPSIndications:DM type 2, causing other manifestations ud 30 0 04/13/19 09 Active Atorvastatin Calcium 80 MG Oral Tablet (Lipitor) Take by mouth 1 Tablet in the morning. 90 Tablet 3 08/08/19 Active Additional Information Patient taking differently:80 mg OralHS, Reported on 02/11/2024 Clindamycin Phosphate 1 % External Solution APPLY TOPICALLY TO AFFECTED AREA TWICE A DAY 60 mL 11 08/08/19 22 Active Metoprolol Tartrate 50 MG Oral Tablet (Lopressor) Take by mouth 1 Tablet in the morning AND 1 Tablet before bedtime. 180 Tablet 3 08/08/19 Active Ketoconazole 2 % External Cream apply topically to affected area twice a day for 14 days to GROIN RASH 180 g 3 02/20/20 22 Active WowcracyTouch Ultra 2 w/Device KitIndications:DM type 2, not at goal (HCC) Use to check blood sugar daily. May check blood sugar up to 3 times daily if needed for signs/symptoms of high/low blood sugar. 1 Kit 02/22/20 Active WowcracyTouch Ultra Blue In Vitro Strip (Glucose Blood)Indications: Type 2 diabetes mellitus with hemoglobin A1c goal of less than 7.0% (HCC) Use to check blood sugar daily. May check up to three times daily if needed for signs/symptoms of high/low blood sugar 100 Strip 2 02/22/20 Active WowcracyTouch UltraSoft LancetsIndications :Type 2 diabetes mellitus with hemoglobin A1c goal of less than 7.0% (HCC) Use to check blood sugar daily. May check up to 3 times daily as needed for signs/symptoms of high/low blood sugar. 400 Each 2 02/22/20 22 Active Cyanocobalamin 1000 MCG Oral Tablet (Cyanocobalamin) Take 1 Tablet by mouth in the morning. 100 Tablet 3 04/07/19 24 Active Empagliflozin 25 MG Oral Tablet (Jardiance) Take 1 Tablet by mouth in the morning. 90 Tablet 3 05/27/19 24 Active Ozempic (2 MG/DOSE) 8 MG/3ML Subcutaneous Solution Pen-injector (Semaglutide (2 MG/DOSE)) Inject 2 mg under the skin once a week. 9 mL 3 05/27/19 24 Active Venlafaxine HCl ER 150 MG Oral Capsule Extended Release 24 Hour (Effexor XR) Take 1 Capsule by mouth in the morning and 1 Capsule in the evening. 180 Capsule 1 11/18/19 24 Active traZODone HCl 100 MG Oral Tablet (Desyrel) Take 1.5 Tablets by mouth at bedtime. 135 Tablet 11/18/19 24 Active clonazePAM 0.5 MG Oral Tablet (KlonoPIN) Take 1 Tablet by mouth 3 times a day as needed for Anxiety. 90 Tablet 1 12/03/19 24 Active Clopidogrel Bisulfate 75 MG Oral Tablet (pLAVix) Take 1 Tablet by mouth in the morning. 90 Tablet 3 12/03/19 24 Active Valsartan 80 MG Oral Tablet (Diovan) Take 1 Tablet by mouth in the morning. 90 Tablet 3 12/03/19 24 Active clomiPRAMINE HCl 75 MG Oral Capsule (Anafranil) 2 caps at night 180 Capsule 12/03/19 24 Active Repaglinide 2 MG Oral Tablet (Prandin)Indicatio ns:Type 2 diabetes mellitus with hemoglobin A1c goal of less than 7.0% (HCC) TAKE 1 TABLET BY MOUTH 3 TIMES DAILY BEFORE MEALS 270 Tablet 3 02/02/20 24 Active metFORMIN HCl ER 500 MG Oral Tablet Extended Release 24 Hour (Glucophage XR)Indications:DM type 2, not at goal (HCC) TAKE 2 TABLETS BY MOUTH IN THE MORNING 180 Tablet 02/04/20 24 Active Silver sulfADIAZINE 1 % External Cream (Silvadene)Indicat ions:Partial thickness burn of foot, unspecified laterality, initial encounter Apply topically to affected area daily. Apply to burn 50 g 1 02/11/20 24 Active Cephalexin 500 MG Oral Capsule (Keflex)Indication s:Partial thickness burn of foot, unspecified laterality, initial encounter Take 1 Capsule by mouth in the morning and 1 Capsule at noon and 1 Capsule before bedtime. Do all this for 10 days. 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, unspecified whether residential insulin use (HCC) 1.5 mg PERINEURAL PRN 08/31/2023 08/30/2024 Active documented as of this encounter (statuses as of 02/11/2024) Active Problems Problem Noted Date Diagnosed Date 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 Type 2 diabetes mellitus wit h hemoglobin A1c goal of less than 7.0% 12/07/2008 Overview (06/19/2015): Modified per Diabetes protocol #14. ICD-10 update of inactive term Major depressive disorder Overview (12/16/2016): ICD-10 update of inactive term documented as of this encounter (statuses as of 02/11/2024) Resolved Problems Problem Noted Date Diagnosed Date Resolved Date Stage 3b chronic kidney disease 08/21/2022 09/04/2022 Type 2 diabetes mellitus wit h stage 3a chronic kidney disease 07/03/2020 09/04/2022 Overview: Per CKD protocol Stage 3a chronic kidney disease 03/21/2020 09/04/2022 Overview: Per CKD protocol Diabetes mellitus with stage 3 chronic kidney disease 06/06/2019 07/05/2020 Overview: Per CKD protocol Lymphadenopathy 12/01/2009 02/10/2018 Acute URI 12/01/2009 09/14/2010 HYPERLIPIDEMIA NEC-NOS 12/01/200902/10 Redundant prepuce and phimosis 05/07/2009 02/10/2018 HYPERLIPIDEMIA NEC-NOS 02/01 Overview (02/01/2009): Per Lipid Taxonomy. Anxiety states 02/10/2018 Overview (12/16/2016): ICD-10 update of inactive term DM type 2, not at goal 12/07 Overview (12/07/2008): Modified per Diabetes protocol #14. documented as of this encounter (statuses as of 02/11/2024) Immunizations Name Administration Dates Next Due COVID-19 mRNA, LNP-s, No Pre serve, 2-Dose Series (Moderna) 04/19/2020,03/22/2020 COVID-19, mRNA, LNP-s, PF, B ooster, 100mcg/0.5mg (Moderna) 12/19/2020 Hepatitis B, 20+ yrs 05/20/2002,02/10/2002,12/09 PPD 09/12/2010,05/24/2001 Pneumococcal Conjugate Vacc, 13 Valent (Prevnar) 02/10/2018 Pneumococcal Polysaccharide PPV23 (Pneumovax) 10/19/2018,01/04/2013 Season Influenza, Quad, PF, Adjuvanted, 65+ Yrs, IM (FLUAD) 12/08/2019 Seasonal Influenza Vac., MDV , IM, 0.5 mL (Fluzone) 01/16/2016,12/15/2014,12/09/2013,01/04,12/08/2011,01/12/2008,12/16/2006 Seasonal Influenza Virus Vac cine, Unspecified Formulation 12/08/2019,12/11/2017,12/07/2017,12/26,01/16/2016,12/15/2014,12/09/2013 ,01/04/2013,12/08/2011,01/12/2008,11/24,02/02/2001,01/02/1999 Seasonal Influenza, Quadriva lent Hd (Fluzone Hd) 11/21/2022,11/13/2020 Seasonal Influenza, Quadriva lent, No Preserve, IM 12/07/2017,12/26/2016 Seasonal Influenza, Trivalen t, (IIV3), PF, (Fluzone) 12/03/2023 Seasonal Influenza, Trivalen t, Adjuvanted, 65+ YRS, PF, (Fluad) 10/19/2018 TDAP (age 10 and older)(Boostrix) 12/26/2016 TDAP, Age 7 and older, IM (Adacel) 09/12/2010 Varicella Zoster Vaccine (Adult) 12/08/2011 Zoster Vaccine Recombinant (Shingrix) 12/29/2018 ,10/19/2018 documented as of this encounter Social History Tobacco Use Types Packs/Day Years Used Date Smoking Tobacco: Former Cigarettes 1 5 0 03/04/1971 - 03/04/1976 Smokeless Tobacco: Never Tobacco Cessation:Counseling Given: Not Answered Alcohol Use Standard Drinks/Week Comments Yes 0 (1 standard drink = 0.6 oz pur e alcohol) 1-2/month PHQ-2 Answer Date Recorded PHQ-2 Score 2 12/27/2017 Hunger Vital Sign Answer Date Recorded Within the past 12 months, y ou worried that your food would run out before you got the money to buy more. Never true 07/14/19 24 Within the past 12 months, t he food you bought just didn't last and you didn't have money to get more. Never true 07/14/2023 Childcare Answer Date Recorded Do you feel overwhelmed with taking care of a child, family member or friend? No 07/14/2023 Does your family need help f inding childcare? (Household - for ages 0-17 years) Not on file 07/14/2023 Clothing Answer Date Recorded Have you been unable to get clothing when it was really needed? No 07/14/2023 Is your family able to get c lothes or diapers when needed? (Household - for ages 0-17 years) Not on file 07/14/2023 Personal Safety Answer Date Recorded Do you feel unsafe or have concerns for your saf ety? No 07/14/2023 Do you have concerns for you r family's safety? (Household - for ages 0-17 years) Not on file 07/14/2023 Utilities Answer Date Recorded Do you have trouble paying y our heating, water, or electric bill? No 07/14/2023 Is your family able to pay t he heat, water, or electric bill? (Household - for ages 0-17 years) Not on file 07/14/2023 Does your family have access to good internet? (Household - for ages 0-17 years) Not on file 07/14/2023 Employment Status Answer Date Recorded Are you unemployed or without regular income? No 07/14/2023 Does the household have a re lar source of income? (Household - for ages 0-17 years) Not on file 07/14/2023 Social Connections Answer Date Recorded How often do you feel lonely or isolated from th ose around you? Often 07/14/2023 Financial Resource Strain Answer Date R ecorded Do you have any trouble payi ng for your medications, or do you think you might in the future? No 07/14/2023 Does your family have troubl e paying for medicine? (Household - for ages 0-17 years) Not on file 07/14/2023 Transportation Needs Answer Date Record ed READ ONLY Do you have troubl e getting a ride to medical visits or work? Sometimes True 07/14/2023 Does your family have a hard time getting a ride to doctors visits? (Household - for ages 0-17 years) Not on file 07/14/2023 Has lack of transportation k ept you from medical appointments, meetings, work, or from getting things needed for daily living? Check all that apply. (Adult - for ages 18 years and over) Not on file 07/14/2023 Do you (or your family) have trouble finding or paying for a ride (transportation)? (Household - for ages 0-17 years) Not on file 07/14/2023 Housing Stability Answer Date Recorded Do you currently live in a s helter or have no steady place to sleep at night? Yes 07/14/2023 READ ONLY Do you think you a re at risk of becoming homeless? No 07/14/2023 Does your family worry about paying for your home or becoming homeless? (Household - for ages 0-17 years) Not on file 0 07/14/2023 Are you homeless or worried that you might be in the future? (Adult - for ages 18 years and over) Not on file Are you (or your family) stevie eless or worried that you might be in the future? (Household - for ages 0-17 years) Not on file Food Insecurity Answer Date Recorded Do you need food for this week? No 07/14/2023 Are you able to get enough f ood for your family? (Household - for ages 0-17 years) Not on file 07/14/2023 Does your family need food t his week? (Household - for ages 0-17 years) Not on file 07/14/2023 Do you always have enough fo od for your family? (Household - for ages 0-17 years) Not on file 07/14/2023 Sex and Gender Information Value Date Recorded Sex Assigned at Male 10/26/2022 8:18 PM EDT Legal Sex Male 6:01 AM EST Gender Identity Male 10/26/2022 8:18 PM EDT Sexual Orientation Straight 10/26/2022 8: 18 PM EDT Occupation Industry Job Start Date Job End Date [employer] Not on file Not on file Not on file documented as of this encounter Last Filed Vital Signs Vital Sign Reading Time Taken Comments Blood Pressure 100/56 02/11/2024 3:58 PM EST Pulse 71 02/11/2024 3:58 PM EST Temperature 35.8 C (96.5 F) 02/11/2024 3:58 PM ES T Respiratory Rate 18 02/11/2024 3:58 PM EST Oxygen Saturation 100% 02/11/2024 3:58 PM EST Inhaled Oxygen Concentration - - Weight 84.8 kg (187 lb) 02/11/2024 3:58 PM EST Height 172.7 cm (5' 8") 02/11/2024 3:58 PM EST Body Mass Index 28.43 02/11/2024 3:58 PM EST documented in this encounter Patient Instructions * Patient Instructions* Jenise Wyatt PA-C - 02/11/2024 5:07 PM EST Leave bandages in place for 2 days and return to the clinic for re- bandage and recheck of the swelling of the cellulitis of the left leg documented in this encounter Progress Notes * Jenise Wyatt PA-C - 02/11/2024 4:13 PM EST Subjective: Nursing Notes: Kaitlin Roberts, MED ASSIST 02/11/24 1632 Addendum Prashanth Doss is a 73 year old male who presents to walk-in clinic today complaining of Chief Complaint Patient presents with Burn Boiling water to the top of both feet and to the sides Brief history:pt was boiling water and spilled the boiling water onto the tops of both feet and to the sides. He notes that he was wearing wool house slippers when this happened. - He treated with cold water and ice packs and a triple antibiotic cream - bactine spray and aloe. The ankle on his left foot is swollen. Onset/duration: 02/04/2024 . OTC treatments tried:triple antibiotic, bactine spray aloe, ice and cold water Effectiveness: temporary relief Patient is accompanied by no one for today's visit. Sx are [place] on the top of his feet after accidentally dropping pot of hot water on feet, 1 week ago no sick contacts at home. Sig med hx/risk factors: Type II diabetes w CKD 3b, Type II controlled with last A1C 7.1% 2 months ago had flu shot this year. 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 (Patient taking differently: Take 1 Tablet by mouth at bedtime.) 90 Tablet 3 Clindamycin Phosphate 1 % External Solution APPLY TOPICALLY TO AFFECTED AREA TWICE A DAY 60 mL 11 Metoprolol Tartrate 50 MG Oral Tablet (Lopressor) Take by mouth 1 Tablet in the morning AND 1 Tablet before bedtime. 180 Tablet 3 Ketoconazole 2 % External Cream apply topically to affected area twice a day for 14 days to GROIN RASH 180 g 3 CleverSetuch Ultra 2 w/Device Kit Use to check blood sugar daily. May check blood sugar up to 3 times daily if needed for signs/symptoms of high/low blood sugar. 1 Kit 0 OneTouch Ultra Blue In Vitro Strip (Glucose Blood) Use to check blood sugar daily. May check up to three times daily if needed for signs/symptoms of high/low blood sugar 100 Strip 2 OneTouch UltraSoft Lancets Use to check blood sugar daily. May check up to 3 times daily as needed for signs/symptoms of high/low blood sugar. 400 Each 2 Cyanocobalamin 1000 MCG Oral Tablet (Cyanocobalamin) Take 1 Tablet by mouth in the morning. 100 Tablet 3 Empagliflozin 25 MG Oral Tablet (Jardiance) Take 1 Tablet by mouth in the morning. 90 Tablet 3 Ozempic (2 MG/DOSE) 8 MG/3ML Subcutaneous Solution Pen-injector (Semaglutide (2 MG/DOSE)) Inject 2 mg under the skin once a week. 9 mL 3 Venlafaxine HCl ER 150 MG Oral Capsule Extended Release 24 Hour (Effexor XR) Take 1 Capsule by mouth in the morning and 1 Capsule in the evening. 180 Capsule 1 traZODone HCl 100 MG Oral Tablet (Desyrel) Take 1.5 Tablets by mouth at bedtime. 135 Tablet 0 clonazePAM 0.5 MG Oral Tablet (KlonoPIN) Take 1 Tablet by mouth 3 times a day as needed for Anxiety. 90 Tablet 1 Clopidogrel Bisulfate 75 MG Oral Tablet (pLAVix) Take 1 Tablet by mouth in the morning. 90 Tablet 3 Valsartan 80 MG Oral Tablet (Diovan) Take 1 Tablet by mouth in the morning. 90 Tablet 3 clomiPRAMINE HCl 75 MG Oral Capsule (Anafranil) 2 caps at night 180 Capsule 0 Repaglinide 2 MG Oral Tablet (Prandin) TAKE 1 TABLET BY MOUTH 3 TIMES DAILY BEFORE MEALS 270 Tablet3 metFORMIN HCl ER 500 MG Oral Tablet Extended Release 24 Hour (Glucophage XR) TAKE 2 TABLETS BY MOUTH IN THE MORNING 180 Tablet 0 Silver sulfADIAZINE 1 % External Cream (Silvadene) Apply topically to affected area daily. Apply toburn 50 g 1 Cephalexin 500 MG Oral Capsule (Keflex) Take 1 Capsule by mouth in the morning and 1 Capsule at noon and 1 Capsule before bedtime. Do all this for 10 days. 30 Capsule 0 Current Facility-Administered Medications Medication Dose Route Frequency Provider Last Rate Last Admin bevaCIZumab (Avastin) inj 1.25 mg 1.25 mg Intravitreal PRN 1.25 mg at 08/31/23 1602 ROPivacaine (Naropin) inj 1.5 mg 1.5 mg Perineural PRN 1.5 mg at 08/31/23 1601 Past Medical History: Diagnosis Date Depressive disorder, not elsewhere classified Diabetic eye exam (HCC) 06/25/12 no diabetic retinopathy Diabetic eye exam (HCC) 07/13/13 DM type 2, goal A1c below 7 12/07/2008 Modified per Diabetes protocol #14. Dyslipidemia, goal LDL below 100 02/01/2009 Per Lipid Taxonomy. Other anxiety states Past Surgical History: Procedure Laterality Date COLONOSCOPY, DIAGNOSTIC (RECTUM) 01/20/2012 COLONOSCOPY FLEXIBLE PROXIMAL DIAGNOSTIC performed by Carson Prieto MD at ENDOSCOPY [facility] COLONOSCOPY, DIAGNOSTIC (RECTUM) 10/30/2022 normal/recall 10 years/COLONOSCOPY FLEXIBLE PROXIMAL DIAGNOSTIC performed by Graciela Parsons DO at ENDOSCOPY [facility] DENTAL SURGERY PROCEDURE NEC 02/23/1990 Dental Surgery Procedure-wisdom teeth INJECTION OF EYE DRUG Left 10/03/2020 #1 Avastin OS, Dr Michael INJECTION OF EYE DRUG Left 08/31/2023 # 2 Avastin OS, Dr. Michael MISCELLANEOUS ORDER ([facility] ONLY) Avastin OS Consent Signed exp 10-03-21 OTHER ACT 112 signed, 10/03/2020 OTHER (INFORMATION) Bilateral AVASTIN OU CONSENT DR. MICHAEL/SERENA EXP. 08/30/24 REMOVE CATARACT, INSERT LENS PROSTH Right 06/01/2018 right EXTRACAPSULAR CATARACT REMOVAL WITH INTRAOCULAR LENS performed by Nimesh Livingston MD at OR [facility] REMOVE CATARACT, INSERT LENS PROSTH Left 06/22/2018 left EXTRACAPSULAR CATARACT REMOVAL WITH INTRAOCULAR LENS performed by Nimesh Livingston MD at OR [facility] Review of patient's allergies indicates: Allergen Reactions Diazepam Neuro complications (Please comment) Severe headaches (able to take trade name "valium" without incident Zocor [Simvastatin] Rash Objective: BP 100/56 | Pulse 71 | Temp 35.8 C (96.5 F) (Tympanic) | Resp 18 | Ht 1.727 m (5' 8") | Wt 84.8kg (187 lb) | SpO2 100% | BMI 28.43 kg/m | BSA 2.02 m Physical Exam Constitutional: Appearance: He is ill-appearing (mildly chronically ill but not acutely ill). Cardiovascular: Rate and Rhythm: Normal rate and regular rhythm. Pulmonary: Effort: Pulmonary effort is normal. Breath sounds: Normal breath sounds. Musculoskeletal: General: Swelling (left leg, medial starting at mid shaft going to the anlke and mid foot, moderately TTP, mild erythema) and tenderness present. Skin: Capillary Refill: Capillary refill takes less than 2 seconds. Findings: Erythema (mild over the left ankle/foot) present. Comments: There are several spots where blisters had formed where the hot water hit the foot, several open blisters on distal dorsal feet bilaterally. Some still have skin where the blisters hadbroken and on the left foot there is 1.5+ round piece of skin that seems to have formed over the wound, looks like skin from a blister that has adhered to the wound. Skin of the open blisters is pinkwithout purulent d/c. There is one area of 1st degree [place] on the medial right foot. About 3 cm with some TTP. Neurological: Mental Status: He is alert. Sensory: No sensory deficit. Psychiatric: Mood and Affect: Mood normal. Behavior: Behavior normal. Debrided the wounds w soft antiseptic cleaning sponge and brush, pt tolerated this well. Wounds were then rinsed and gently dried. Some skin was cut away w small scissors. There are small areas of granular tissue forming on some of the blisters. Pt tolerated the procedure well. Silvadene was applied to all of the open wounds, petroleum gel gauze applied on top of this, then telfa on top of this and the bandages were wrapped with alexsandra bandages to hold in place ASSESSMENT/PLAN: Partial thickness burn of foot, unspecified laterality, initial encounter (Primary) - Silver sulfADIAZINE 1 % External Cream (Silvadene); Apply topically to affected area daily. Applyto burn - Cephalexin 500 MG Oral Capsule (Keflex); Take 1 Capsule by mouth in the morning and 1 Capsule at noon and 1 Capsule before bedtime. Do all this for 10 days. - HOME HEALTH REFERRAL OP Patient Instructions Leave bandages in place for 2 days and return to the clinic for re- bandage and recheck of the swelling of the cellulitis of the left leg Return instruction reviewed with pt in detail. Reasons to report to the ED were also reviewed. Voiced understanding Advised to follow up if no improvement in 3-5days. Jenise Wyatt PA-C documented in this encounter Nursing Notes * Kaitlin Roberts, MED ASSIST - 02/11/2024 4:02 PM EST Prashanth Doss is a 73 year old male who presents to walk-in clinic today complaining of Chief Complaint Patient presents with Burn Boiling water to the top of both feet and to the sides Brief history:pt was boiling water and spilled the boiling water onto the tops of both feet and to the sides. He notes that he was wearing wool house slippers when this happened. - He treated with cold water and ice packs and a triple antibiotic cream - bactine spray and aloe. The ankle on his left foot is swollen. Onset/duration: 02/04/2024 . OTC treatments tried:triple antibiotic, bactine spray aloe, ice and cold water Effectiveness: temporary relief Patient is accompanied by no one for today's visit. documented in this encounter Plan of Treatment Upcoming Encounters Date Type Department Care Team (Late st Contact Info) Description 05/02/2024 1:30 PM EDT Office Visit Ophthalmology, [facility] [address] [place] [address] Azael Michael DO [address] [place] [address] 06/10/2024 9:20 AM EDT Office Visit Family Practice [facility] [address] [facility] [place] [address] Naveen Johnson III, MD [address] [facility] [place] [address] Scheduled Procedures Name Priority Associated Diagnoses Date/Ti me COLONOSCOPY FLEXIBLE PROXIMA L DIAGNOSTIC Recall Screening for colon cancer Scheduled Referrals Name Type Priority Associated Diagnoses Orde r Schedule HOME HEALTH REFERRAL OP Referral Within 3 days (urgent) Partial thickness burn of foot, unspecified laterality, initial encounter Ordered: 02/11/2024 Health Maintenance Due Date Last Done Comments DXA Scan 1952 Cologuard 1997 Fecal Occult Blood Test 1997 Sigmoidoscopy 1997 Depression Monitoring 06/15/2018 06/15/2017 Adult Wellness Visit 2018 COVID-19 Vaccine (3 - Moderna risk series) 01/16/2021 12/19/2020, 04/19/2020, 03/22/2020 Diabetic Foot Exam 12/07/2021 12/07/2020, 1 , 05/31/2018, Additional history exists B-12 05/19/2024 05/20/2023, 08/2022, 08/05/2021, Additional history exists CKD HGB USE SMARTSET 02280 05/19/202405/19, 02/15/2022, 03/17/2020, Additional history exists CKD PHOS USE SMARTSET 01705 05/19/202404/24, 08/16/2022, 03/17/2020 Albumin/Creatinine Ratio 05/26/2024 024, 08/16/2022, 08/05/2021, Additional history exists GFR 05/27/2024 11/27/2023, 04/24, 08/16/2022, Additional history exists HbA1c 05/27/2024 11/27/2023, 04/24, 08/16/2022, Additional history exists Diabetic Eye Exam 06/28/2024 06/29/2023, , 06/23/2022, Additional history exists DTap/Tdap Vaccines (3 - Td or Tdap) 12/26/2026 12/26/2016, 09/12/2010, 11/22/1999 Lipid Panel 05/19/2028 05/20/2023, 01/24, 03/17/2020, Additional history exists Colonoscopy 10/30/2032 10/30/2022, 08/2022, 01/20/2012, Additional history exists Colorectal Cancer Screening 10/30/2032 Hepatitis B Vaccine Completed 05/20/2002, 02/10/2002, 12/09/2001 AAA Screening Completed 06/08/2018 Pneumococcal Vaccine: 65+ Years Completed 10/19/2018, 02/10/2018, 01/04/2013, Additional history exists Zoster Vaccines Completed 12/29/2018, 09/24, 12/08/2011 Influenza Vaccine (FLU shot) Completed 11/2023, 11/21/2022, 11/18/2021, Additional history exists HPV (Gardasil) Vaccine Aged Out No lo nger eligible based on patient's age to complete this topic MENINGOCOCCAL (MENACTRA/MENVEO) Aged Out No longer eligible based on patient's age to complete this topic documented as of this encounter Medical Devices Implanted Type Area Manager Pricing Device Identifier Shelf Expiration Date Model / Serial / Lot Lens Intraoc 20.0 - [id number] - [id number] Implanted:Qty: 1 on 06/01/2018 by Nimesh Livingston MD at OR [facility] Right: Eye [employer]OM[employer] 12/23/2022 [id number] / [id number] / [id number] Lens Intraoc 19.5 - [id number] - [id number] Implanted:Qty: 1 on 06/22/2018 by Nimesh Livingston MD at OR [facility] Left: Eye BA[employer]CH [employer] LOMB 10/23/2022 [id number] / [id number] / documented as of this encounter Visit Diagnoses Diagnosis Partial thickness burn of foot, unspecified laterality, initial encounter- Primary documented in this encounter Care Teams Principal Embedded Software Engineer Relationship Specialty Start Date End Date Naveen Johnson III, MD [address] [place] [address] PCP - General 03/16/1997 documented as of this encounter
--- OUTSIDE RECORDS SUMMARY | 2024-02-13 20:15 | External Medical Summary | Summary of Care ---
Author Name Unknown Organization [facility] Address [address] [place] [address] Phone [phone] Care Team Providers Care Window Dresser Name Role Phone Alex ZARATE MD, Naveen Araujo Primary Care Provider [phone] Reason for Visit * Reason Comments Other Dressing change Encounter Details Date Type Department Care Team (Latest Contact Info) Description 02/13/2024 5:00 PM EST [facility]ient [facility] Visit [facility] [address] [place] [address] Dayanara Danielle CRNP [address] [place] [id number] Partial thickness burn of left foot, subsequent encounter*; Partial thickness burn of right foot, subsequent encounter Allergies Active Allergy Reactions Criticality Noted Date Comments Diazepam Neuro complications (Please comment) 05/25/2018 Severe headaches (able to take trade name "valium" without incident Simvastatin Rash 12/16/2011 documented as of this encounter (statuses as of 02/13/2024) Medications VITAMIN C 500 MG PO TABSIndications:DM type 2, causing other manifestations daily 60 0 04/13/19 09 Active MULTIVITAMIN/RAILWAY SIGNAL ELECTRICIAN AL FORMULA OR TABSIndications:DM type 2, causing other manifestations 1 TABLET DAILY 30 0 04/13/19 09 Active VITAMIN E 400 UNIT PO CAPSIndications:DM type 2, causing other manifestations ud 30 0 04/13/19 09 Active Atorvastatin Calcium 80 MG Oral Tablet (Lipitor) Take by mouth 1 Tablet in the morning. 90 Tablet 3 08/08/19 22 Active Additional Information Patient taking differently:80 mg OralHS, Reported on 02/13/2024 Clindamycin Phosphate 1 % External Solution APPLY TOPICALLY TO AFFECTED AREA TWICE A DAY 60 mL 11 08/08/19 Active Metoprolol Tartrate 50 MG Oral Tablet (Lopressor) Take by mouth 1 Tablet in the morning AND 1 Tablet before bedtime. 180 Tablet 3 08/08/19 Active Ketoconazole 2 % External Cream apply topically to affected area twice a day for 14 days to GROIN RASH 180 g 3 02/20/20 Active [employer] Ultra 2 w/Device KitIndications:DM type 2, not at goal (HCC) Use to check blood sugar daily. May check blood sugar up to 3 times daily if needed for signs/symptoms of high/low blood sugar. 1 Kit 02/22/20 Active [employer] Ultra Blue In Vitro Strip (Glucose Blood)Indications: Type 2 diabetes mellitus with hemoglobin A1c goal of less than 7.0% (HCC) Use to check blood sugar daily. 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, unspecified whether terminal supervisor insulin use (HCC) 1.5 mg PERINEURAL PRN 08/31/2023 08/30/2024 Active documented as of this encounter (statuses as of 02/13/2024) Active Problems Problem Noted Date Diagnosed Date [...] as of this encounter (statuses as of 02/13/2024) Resolved Problems Problem Noted Date Diagnosed Date [...] as of this encounter (statuses as of 02/13/2024) Immunizations Name Administration Dates Next Due COVID-19 [...] 03/04/1976 Smokeless Tobacco: Never Tobacco Cessation:Counseling Given: No Alcohol Use Standard Drinks/Week Comments Yes 0 [...] No 07/14/2023 Does the household have a unm hospitallar source of income? (Household - for ages [...] Sign Reading Time Taken Comments Blood Pressure 132/62 02/13/2024 4:50 PM EST Pulse 62 02/13/2024 4:50 PM EST Temperature 35.6 C (96 F) 02/13/2024 4:50 PM EST Respiratory Rate 20 02/13/2024 4:50 PM EST Oxygen Saturation 97% 02/13/2024 4:50 PM EST Inhaled Oxygen Concentration - - Weight 84.8 kg (187 lb) 02/13/2024 4:50 PM EST Height 172.7 cm (5' 8") 02/13/2024 4:50 PM EST Body Mass Index 28.43 02/13/2024 4:50 PM EST documented in this encounter Progress Notes * Dayanara Danielle CRNP - 02/13/2024 6:18 PM EST Images from the original note were not included. [facility] Basic Exam Subjective Prashanth Doss is a 73 year old male that presents to the [facility] after being seen 02/10 in this clinic for a partial thickness burn of bilat feet after boiling water was spilled on them on 02/03. He had used Bactine, aloe, and antibiotic ointment prior to coming in. He was instructed on 02/10 to keep his dressing on and return in 2 days for a wound check and dressing change (silvadene and Vaseline impregnated gauze with a dry gauze wrap). Objective BP 132/62 | Pulse 62 | Temp 35.6 C (96 F) (Tympanic) | Resp 20 | Ht 1.727 m (5' 8") | Wt 84.8 kg (187 lb) | SpO2 97% | BMI 28.43 kg/m | BSA 2.02 m Body mass index is 28.43 kg/m. Review of Systems Constitutional: Negative. HENT: Negative. Eyes: Negative. Respiratory: Negative. Cardiovascular: Negative. Gastrointestinal: Negative. Endocrine: Negative. Genitourinary: Negative. Musculoskeletal: Negative. Skin: Positive for color change and wound. Open [place] recheck Neurological: Negative. Physical Exam Vitals and nursing note reviewed. HENT: Head: Normocephalic. Eyes: Pupils: Pupils are equal, round, and reactive to light. Cardiovascular: Rate and Rhythm: Normal rate. Pulmonary: Effort: Pulmonary effort is normal. Musculoskeletal: General: Normal range of motion. Comments: ROM intact through ankles/feet/toes bilat Skin: General: Skin is warm and dry. Capillary Refill: Capillary refill takes 2 to 3 seconds. Findings: Erythema present. Comments: See images and entered measurements. These are available on the media tab as well as within this note. Neurological: Mental Status: He is alert and oriented to person, place, and time. Past Medical History: Diagnosis Date Depressive disorder, not elsewhere classified Diabetic eye exam (HCC) 06/25/12 no diabetic retinopathy Diabetic eye exam (HCC) 07/13/13 DM type 2, goal A1c below 7 12/07/2008 Modified per Diabetes protocol #14. Dyslipidemia, goal LDL below 100 02/01/2009 Per Lipid Taxonomy. Other anxiety states Patient Active Problem List Diagnosis Major depressive [...] retinopathy of both eyes without macular edema ([facility]) BP Readings from Last 3 Encounters: 02/13/24 132/62 02/11/24 100/56 12/03/23 107/54 Wt Readings from Last 3 Encounters: 02/13/24 84.8 kg (187 lb) 02/11/24 84.8 kg (187 lb) 12/03/23 86.6 kg (191 lb) Media Information Document Information Photographic Image: Clinical Photo Left foot burn 02/13/24 recheck. 5.8cm x 7 cm. 3mm at deepest point. 02/13/2024 18:06 Attached To: [facility] Care Visit on 02/13/24 with Dayanara Danielle CRNP Source Information Dayanara Danielle CRNP | [facility] Document History Media Information Document Information Photographic Image: Clinical Photo Right dorsal foot [place] 02/13/24 recheck (in from great toe on medial foot edge 2.6 cm x 2.6 cm 1-2mm depth) (in from 2nd toe 2.5 cm x 2 cm approx 1-2 mm depth) 02/13/2024 18:06 Attached To: Con[facility]ient Care Visit on 02/13/24 with Dayanara Danielle CRNP Source Information Dayanara Danielle CRNP | [facility] Document History Media Information Document Information Photographic Image: Clinical Photo Burn R medial foot 02/13/24 recheck Unbroken skin medial right foot 5 cm x 1.3 cm 02/13/2024 18:06 Attached To: Convenient Care Visit on 02/13/24 with Dayanara Danielle CRNP Source Information Dayanara Danielle CRNP | [facility] Document History Assessment and plan Partial thickness burn of left foot, subsequent encounter (Primary) Partial thickness burn of right foot, subsequent encounter Removed dressing to evaluate wounds. Photographs taken and added to the chart. Noted his hx of DM with delayed wound healing Discussed at length with Prashanth the options for management moving forward. [facility] d/t the holiday this week. With the persistent redness and swelling despite being on oral abx there is a concern with his DM that he may develop a skin or deeper infection that could potentially move to the bone. Also discussed that while we could get him an appointment with a provider within his PCP's group, he likely would be delayed in seeing wound management or surgery if needed for debridement. This could possibly delay healing further, increase risk for severe infection, and/or result in a lengthy hospitalization. We could send him directly to the ER where he could be more directly referred to wound management and/or have additional same-day testing if found warranted such as labs and/or imaging. He opted to go to the local ER for management at this time which I think is appropriate as we are limited in this setting for complex wound care and debridement on that scale. Follow up Follow Up: Return if symptoms worsen or fail to improve. Discussed with him that if the ER is unable to secure him an outpatient appointment with specialistbefore the iday this week he should come here or to PCP office on Thursday or Thursday for a dressing check/change OR follow the specific recommendations given by the ER if given a dressing change regimen. Total time today including reviewing chart before the visit, pertinent labs, imaging reports, face to face time, and documentation time was 30 minutes. The above was discussed and understanding was expressed. CHON Salcedo documented in this encounter Nursing Notes * Mandeep German, RADIO INTERFERENCE SUPERVISOR - 02/13/2024 4:46 PM EST Prashanth Doss is a 73 year old male who presents to walk-in clinic today complaining of Chief Complaint Patient presents with Other Dressing change Brief history:pt is present with need to get dressing changed. Pt states having not taken off dressing since and has not washed it. Pt states not looking at wounds to see if it has been getting worse. Onset/duration: 4x days OTC treatments tried:antibiotics and wraps Effectiveness: has helped Patient is accompanied by self for today's visit. documented in this encounter Plan of Treatment Upcoming Encounters Date Type Department Care Team (Late st Contact Info) Description 05/02/2024 1:30 PM EDT Office Visit Ophthalmology, [facility] [address] [place] [address] Azael Michael DO [address] [place] [address] 06/10/2024 9:20 AM EDT Office Visit Family Practice [facility] [address] [facility] [place] [address] Naveen Johnson III, MD [address] [facility] [place] [address] Scheduled Procedures Name Priority Associated Diagnoses Date/Ti me COLONOSCOPY FLEXIBLE PROXIMA L DIAGNOSTIC Recall Screening for colon cancer Health Maintenance Due Date Last Done Comments DXA Scan 1952 Cologuard 1997 Fecal Occult Blood Test 1997 Sigmoidoscopy 1997 Depression Monitoring 06/15/2018 06/15/2017 Adult Wellness Visit 2018 COVID-19 Vaccine (3 - Moderna risk series) 01/16/2021 12/19/2020, 04/19/2020, 03/22/2020 Diabetic Foot Exam 12/07/2021 12/07/2020, 1 , 05/31/2018, Additional history exists B-12 05/19/2024 05/20/2023, 08/2022, 08/05/2021, Additional history exists CKD HGB USE SMARTSET 65131 05/19/202405/19, 02/15/2022, 03/17/2020, Additional history exists CKD PHOS USE SMARTSET 05548 05/19/202404/24, 08/16/2022, 03/17/2020 Albumin/Creatinine Ratio 05/26/2024 024, [...] this encounter Medical Devices Implanted Type Area Hydro Pneumatic Tester Device Identifier Shelf Expiration Date Model / Serial / Lot Lens Intraoc 20.0 - [id number] - [id number] Implanted:Qty: 1 on 06/01/2018 by Nimesh Livingston MD at OR [facility] Right: Eye [employer]OM[employer] 12/23/2022 [id number] / [id number] / [id number] Lens Intraoc 19.5 - [id number] - [id number] Implanted:Qty: 1 on 06/22/2018 by Nimesh Livingston MD at OR [facility] Left: Eye BA[employer]CH [employer] LOMB 10/23/2022 [id number] / [id number] / documented as of this encounter Visit Diagnoses Diagnosis Partial thickness burn of left foot, subsequent encounter- Primary Partial thickness burn of right foot, subsequent encounter documented in this encounter Care Teams Window Dresser Relationship Specialty Start Date End Date Naveen Johnson III, MD [address] [place] [address] PCP - General 03/16/1997 documented as of this encounter
--- OUTSIDE RECORDS SUMMARY | 2024-02-13 20:15 | External Medical Summary | Summary of Care ---
Author Name Unknown Organization [facility] Address [address] [place] [address] Phone [phone] Care Team Providers Care Research Coordinator Name Role Phone Alex ZARATE MD, John E Primary Care Provider [phone] Reason for Visit * Reason Comments eRx-Medication Refill Encounter Details Date Type Department Care Team (Late st Contact Info) Description 02/02/2024 Refill Family Practice [facility] [place] [address] [place] [address] Arslan Kennedy III, MD [address] [place] [address] DM type 2, not at goal (HCC) Allergies Active Allergy Reactions Criticality Noted Date Comments Diazepam Neuro complications (Please comment) 05/25/2018 Severe headaches (able to take trade name "valium" without incident Simvastatin Rash 12/16/2011 documented as of this encounter (statuses as of 02/04/2024) Medications VITAMIN C 500 MG PO TABSIndications:D M type 2, causing other manifestations daily 60 0 009 Active MULTIVITAMIN/MINE RAL FORMULA OR TABSIndications:D M type 2, causing other manifestations 1 TABLET DAILY 30 0 009 Active VITAMIN E 400 UNIT PO CAPSIndications:D M type 2, causing other manifestations ud 30 0 009 Active Atorvastatin Calcium 80 MG Oral Tablet (Lipitor) Take by mouth 1 Tablet in the morning. 90 Tablet 3 Active Additional Information Patient taking differently:80 mg OralHS, Reported on 02/02/2024 Clindamycin Phosphate 1 % External Solution APPLY TOPICALLY TO AFFECTED AREA TWICE A DAY 60 mL 11 Active Metoprolol Tartrate 50 MG Oral Tablet (Lopressor) Take by mouth 1 Tablet in the morning AND 1 Tablet before bedtime. 180 Tablet 3 Active Ketoconazole 2 % External Cream apply topically to affected area twice a day for 14 days to GROIN RASH 180 g 3 Active rag & boneTouch Ultra 2 w/Device KitIndications:DM type 2, not at goal (HCC) Use to check blood sugar daily. May check blood sugar up to 3 times daily if needed for signs/symptoms of high/low blood sugar. 1 Kit Active rag & boneTouch Ultra Blue In Vitro Strip (Glucose Blood)Indications :Type 2 diabetes mellitus with hemoglobin A1c goal of less than 7.0% ([facility]) Use to check blood sugar daily. May check up to three times daily if needed for signs/symptoms of high/low blood sugar 100 Strip 2 Active rag & boneTouch UltraSoft LancetsIndication s:Type 2 diabetes mellitus with hemoglobin A1c goal of less than 7.0% ([facility]) Use to check blood sugar daily. May check up to 3 times daily as needed for signs/symptoms of high/low blood sugar. 400 Each 2 Active Cyanocobalamin 1000 MCG Oral Tablet (Cyanocobalamin) Take 1 Tablet by mouth in the morning. 100 Tablet 3 024 Active Empagliflozin 25 MG Oral Tablet (Jardiance) Take 1 Tablet by mouth in the morning. 90 Tablet 3 024 Active Ozempic (2 MG/DOSE) 8 MG/3ML Subcutaneous Solution Pen-injector (Semaglutide (2 MG/DOSE)) Inject 2 mg under the skin once a week. 9 mL 3 Active Venlafaxine HCl ER 150 MG Oral Capsule Extended Release 24 Hour (Effexor XR) Take 1 Capsule by mouth in the morning and 1 Capsule in the evening. 180 Capsule 1 Active traZODone HCl 100 MG Oral Tablet (Desyrel) Take 1.5 Tablets by mouth at bedtime. 135 Tablet 024 Active clonazePAM 0.5 MG Oral Tablet (KlonoPIN) Take 1 Tablet by mouth 3 times a day as needed for Anxiety. 90 Tablet 1 024 Active Clopidogrel Bisulfate 75 MG Oral Tablet (pLAVix) Take 1 Tablet by mouth in the morning. 90 Tablet 3 024 Active Valsartan 80 MG Oral Tablet (Diovan) Take 1 Tablet by mouth in the morning. 90 Tablet 3 024 Active clomiPRAMINE HCl 75 MG Oral Capsule (Anafranil) 2 caps at night 180 Capsule 024 Active Repaglinide 2 MG Oral Tablet (Prandin)Indicati ons:Type 2 diabetes mellitus with hemoglobin A1c goal of less than 7.0% (HCC) TAKE 1 TABLET BY MOUTH 3 TIMES DAILY BEFORE MEALS 270 Tablet 3 024 Active metFORMIN HCl ER 500 MG Oral Tablet Extended Release 24 Hour (Glucophage XR)Indications:DM type 2, not at goal (HCC) TAKE 2 TABLETS BY MOUTH IN THE MORNING 180 Tablet 024 Active metFORMIN HCl ER 500 MG Oral Tablet Extended Release 24 Hour (Glucophage XR)Indications:DM type 2, not at goal (HCC) Take 2 Tablets by mouth in the morning. 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) 1.5 mg PERINEURAL PRN 08/31/2023 08/30/2024 Active documented as of this encounter (statuses as of 02/04/2024) Active Problems Problem Noted Date Diagnosed Date [...] as of this encounter (statuses as of 02/04/2024) Resolved Problems Problem Noted Date Diagnosed Date [...] as of this encounter (statuses as of 02/04/2024) Immunizations Name Administration Dates Next Due COVID-19 [...] 0 [birth year]/04/1971 - 03/04/1976 Smokeless Tobacco: Never Alcohol Use Standard Drinks/Week Comments Yes 0 [...] 07/14/2023 Does the household have a re gular source of income? (Household - for ages [...] on file documented as of this encounter Miscellaneous Notes * Telephone Encounter - Arslan Kennedy III, MD - 02/04/2024 8:04 AM ESTSigned Prescriptions: Disp Refills metFORMIN HCl ER 500 MG Oral Tablet Extend*180 Ta*0 Sig: TAKE 2 TABLETS BY MOUTH IN THE MORNINGAuthorizing Provider: ARSLAN KENNEDY III * Telephone Encounter - Interface, [facility] - 02/04/2024 6:27 AM EST Pending Prescriptions: Disp Refills metFORMIN HCl ER 500 MG Oral Tablet Extend*180 Ta*0 Sig: TAKE 2 TABLETS BY MOUTH IN THE MORNING * Telephone Encounter - Sydnee Mcclendon [facility] - 02/03/2024 1:30 PM EST Pending Prescriptions: Disp Refills metFORMIN HCl ER 500 MG Oral Tablet Extend*180 Ta*0 Sig: TAKE 2 TABLETS BY MOUTH IN THE MORNING * Telephone Encounter - Sydnee Mcclenodn [facility] - 02/03/2024 1:29 PM EST GFR borderline med use cut-off. Please refill if appropriate. Thank you, Sydnee Mcclendon, PharmD Clinical Pharmacist [facility] 02/03/24 1:30 PM [phone] documented in this encounter Plan of Treatment Upcoming Encounters Date Type Department Care Team (Late st Contact Info) Description 05/02/2024 1:30 PM EDT Office Visit Ophthalmology, [facility] [address] [address] Azael Michael DO [address] [place] [address] 06/10/2024 9:20 AM EDT Office Visit [facility] [place] [address] [place] [address] Arslan Kennedy III, MD [address] [place] [address] Scheduled Procedures Name Priority Associated Diagnoses Date/Ti [...] Additional history exists CKD HGB USE SMARTSET 86096 05/19/202405/19, 02/15/2022, 03/17/2020, Additional history exists CKD PHOS USE SMARTSET 97579 05/19/202404/24, 08/16/2022, 03/17/2020 Albumin/Creatinine Ratio 05/26/2024 024, 08/16/2022, 08/05/2021, Additional history exists GFR 05/27/2024 11/27/2023, 04/24, 08/16/2022, Additional history exists HbA1c 05/27/2024 11/27/2023, 04/24, 08/16/2022, Additional history exists Diabetic Eye Exam 06/28/2024 06/29/2023, , 06/23/2022, Additional history exists DTap/Tdap Vaccines (3 - Td or Tdap) 12/26/2026 12/26/2016, 09/12/2010, 11/22/1999 Lipid Panel 05/19/2028 05/20/2023, 01/24, 03/17/2020, Additional history exists Colonoscopy 10/30/2032 10/30/2022, 0 08/2022, 01/20/2012, Additional history exists Colorectal Cancer [...] this encounter Medical Devices Implanted Type Area Vacuum Tank Tender Device Identifier Shelf Expiration Date Model / Serial / Lot Lens Intraoc 20.0 - [id number] - [id number] Implanted:Qty: 1 on 06/01/2018 by Nimesh Livingston MD at [facility] Right: Eye [employer] 12/23/2022 [id number] / [id number] / [id number] Lens Intraoc 19.5 - [id number] - [id number] Implanted:Qty: 1 on 06/22/2018 by Nimesh Livingston MD at [facility] Left: Eye [employer] 10/23/2022 [id number] / [id number] / documented as of this encounter Visit Diagnoses Diagnosis DM type 2, not at goal (HCC) Type II or unspecified type diabetes mellitus without mention of complication, not stated as uncontrolled documented in this encounter Care Teams Research Coordinator Relationship Specialty Start Date End Date Arslan Kennedy III, MD [address] [facility] [place] [address] PCP - General 03/16/1997 documented as of this encounter
--- OUTSIDE RECORDS SUMMARY | 2024-02-13 20:16 | External Medical Summary | Summary of Care ---
Author Name Unknown Organization [facility] Address [address] [place] [address] Phone [phone] Care Team Providers Care Coffee Sampler Name Role Phone Alex ZARATE MD, Naveen Araujo Primary Care Provider [phone] Encounter Details Date Type Department Care Team (Late st Contact Info) Description 01/27/2024 Result Scan Unspecified Department Pricila Garcia, [address] [address] <No scans attached> Allergies Active Allergy Reactions Criticality Noted Date Comments Diazepam Neuro complications (Please comment) 05/25/2018 Severe headaches (able to take trade name "valium" without incident Simvastatin Rash 12/16/2011 documented as of this encounter (statuses as of 01/28/2024) Medications VITAMIN C 500 MG PO TABSIndications:DM type 2, causing other manifestations daily 60 0 04/13/19 09 Active MULTIVITAMIN/ARCHEOLOGY FACULTY MEMBER AL FORMULA OR TABSIndications:DM type 2, causing [...] Patient taking differently:80 mg OralHS, Reported on 10/29/2022 Clindamycin Phosphate 1 % External Solution APPLY TOPICALLY TO AFFECTED AREA TWICE A DAY 60 mL 11 08/08/19 Active Metoprolol Tartrate 50 MG Oral Tablet (Lopressor) Take by mouth 1 Tablet in the morning AND 1 Tablet before bedtime. 180 Tablet 3 08/08/19 22 Active Naproxen 500 MG Oral Tablet (Naprosyn) Take by mouth 1 Tablet 2 times a day with morning and evening meals . 20 Tablet 11 08/08/19 Active Ketoconazole 2 % External Cream apply topically to affected area twice a day for 14 days to GROIN RASH 180 g 3 02/20/20 22 Active [employer] CorporationTouch Ultra 2 w/Device KitIndications:DM type 2, not at goal (HCC) Use to check blood sugar daily. May check blood sugar up to 3 times daily if needed for signs/symptoms of high/low blood sugar. 1 Kit 02/22/20 Active [employer]Touch Ultra Blue In Vitro Strip (Glucose Blood)Indications: Type 2 diabetes mellitus with hemoglobin A1c goal of less than 7.0% ([facility]) Use to check blood sugar daily. May check up to three times daily if needed for signs/symptoms of high/low blood sugar 100 Strip 2 02/22/20 Active [employer] CorporationTouch UltraSoft LancetsIndications :Type 2 diabetes mellitus with hemoglobin A1c goal of less than 7.0% ([facility]) Use to check blood sugar daily. May check up to 3 times daily as needed for signs/symptoms of high/low blood sugar. 400 Each 2 02/22/20 22 Active metFORMIN HCl ER 500 MG Oral Tablet Extended Release 24 Hour (Glucophage XR)Indications:DM type 2, not at goal (HCC) Take 2 Tablets by mouth in the morning. 180 Tablet 3 04/02/19 24 Active Cyanocobalamin 1000 MCG Oral Tablet (Cyanocobalamin) [...] week. 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, unspecified whether longterm insulin use (HCC) 1.25 mg IZ PRN 08/31/2023 08/30/2024 Active ROPivacaine (Naropin) inj 1.5 mgIndications: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, unspecified whether longterm insulin use (HCC) 1.5 mg PERINEURAL PRN 08/31/2023 08/30/2024 Active documented as of this encounter (statuses as of 01/28/2024) Active Problems Problem Noted Date Diagnosed Date [...] as of this encounter (statuses as of 01/28/2024) Resolved Problems Problem Noted Date Diagnosed Date [...] as of this encounter (statuses as of 01/28/2024) Immunizations Name Administration Dates Next Due COVID-19 [...] on file documented as of this encounter Plan of Treatment Upcoming Encounters Date Type Department Care Team (Late st Contact Info) Description 02/02/2024 1:45 PM EST Office Visit Ophthalmology, [facility] [address] [place] [address] Azael Michael, [address] [place] [address] 06/10/2024 9:20 AM EDT Office Visit Family Practice [facility] [address] [facility] [place] [address] Naveen Johnson III, MD [address] [facility] [place] [address] Scheduled Procedures Name Priority Associated Diagnoses Date/Ti [...] Additional history exists CKD HGB USE SMARTSET 43857 05/19/202405/19, 02/15/2022, 03/17/2020, Additional history exists CKD PHOS USE SMARTSET 53360 05/19/202404/24, 08/16/2022, 03/17/2020 Albumin/Creatinine Ratio 05/26/2024 024, [...] this encounter Medical Devices Implanted Type Area Entry Level Project Engineer Device Identifier Shelf Expiration Date Model / Serial / Lot Lens Intraoc 20.0 - [id number] - [id number] Implanted:Qty: 1 on 06/01/2018 by Nimesh Livingston MD at [facility] Right: Eye [employer] 12/23/2022 [id number] / [id number] / [id number] Lens Intraoc 19.5 - [id number] - [id number] Implanted:Qty: 1 on 06/22/2018 by Nimesh Livingston MD at OR [facility] Left: Eye [employer]OM[employer] 10/23/2022 [id number] / [id number] / documented as of this encounter Procedures Procedure Name Priority Date/Time Associated Diagnosis Comments PROCEDURE SCANNED RESULT 01/27/2024 documented in this encounter Results * PROCEDURE SCANNED RESULT (01/27/2024) 01/27/2024 Pricila Garcia DO SURGERY Final Result documented in this encounter Care Teams Coffee Sampler Relationship Specialty Start Date End Date Naveen Johnson III, MD [address] [place] [address] PCP - General 03/16/1997 documented as of this encounter
--- OUTSIDE RECORDS SUMMARY | 2024-02-13 20:16 | External Medical Summary | Summary of Care ---
Author Name Unknown Organization [facility] Address [address] [place] [address] Phone [phone] Care Team Providers Care Medical Research Scientist Name Role Phone Alex ZARATE MD, Naveen Araujo Primary Care Provider [phone] Reason for Visit * Reason Comments Follow Up * Precert (Within 10 days (routine)) - Authorized Specialty Diagnoses / Procedures Referred By Nigel zepeda Referred To Contact Ophthalmology Diagnoses Type 2 diabetes mellitus with mild nonproliferative diabetic retinopathy without macular edema, bilateral (HCC) Procedures HI BEVACIZUMAB INJECTION HI INTRAVITREAL NJX PHARMACOLOGIC AGT SPX Azael Michael DO [address] [place] [address] Phone: tel: fax: Referral ID Status Reason Start Date Expiration Date V isits Requested Visits Authorized [id number] Authorized Precert 08/31/2023 02/22/[phone] Encounter Details Date Type Department Care Team (Late st Contact Info) Description 02/02/2024 1:45 PM EST Office Visit Ophthalmology, [facility] [address] [place] [address] Azael Michael DO [address] [place] [address] 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 180 Tablet 3 08/08/19 22 Active Ketoconazole 2 % External Cream apply topically to affected area twice a day for 14 days to GROIN RASH 180 g 3 02/20/20 22 Active Just Between [email or web address] Ultra 2 w/Device KitIndications:DM type 2, not at goal (HCC) Use to check blood sugar daily. May check blood sugar up to 3 times daily if needed for signs/symptoms of high/low blood sugar. 1 Kit 02/22/20 22 Active Just Between FriendsTouch Ultra Blue In Vitro Strip (Glucose Blood)Indications: Type 2 diabetes mellitus with hemoglobin A1c goal of less than 7.0% (HCC) Use to check blood sugar daily. May check up to three times daily if needed for signs/symptoms of high/low blood sugar 100 Strip 2 02/22/20 22 Active OneTouch UltraSoft LancetsIndications :Type 2 diabetes mellitus with hemoglobin A1c goal of less than 7.0% ([facility]) Use to check blood sugar daily. [...] at night 180 Capsule 12/03/19 24 Active Naproxen 500 MG Oral Tablet (Naprosyn) Take by mouth 1 Tablet 2 times a day with morning and evening meals . 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 (Household - for ages [...] on file documented as of this encounter Progress Notes * Azael Michael, DO - 02/02/2024 1:45 PM EST [facility] [place] Nursing Notes: Kiara Liriano RN 02/02/24 1349 Signed Prashanth Doss is a 73 year old year old male who presents for Mild NPDR OU. Last Office Visit: 12/01/2023 (in office), Visit date not found (telemedicine) Patient currently states no change in vision. Are you diabetic? Yes. Do you check your blood sugars daily? YES. Fasting BS this mornin mg/dl. Last Hemoglobin A1C: Lab Results Component Value Date/Time HGBA1C 7.1 (H) 11/27/2023 10:03 AM HGBA1C 7.3 (H) 05/20/2023 09:11 AM HGBA1C 8.1 (H) 08/16/2022 09:31 AM HGBA1C 8.7 (H) 03/17/2020 09:38 AM HGBA1C 8.8 (H) 12/03/2019 08:18 AM HGBA1C 10.2 (H) 06/01/2019 12:[address]? yes OCT image(s) of both eyes acquired and filed/scanned into chart. Base Eye Exam Visual Acuity (Snellen - Linear) Right Left Dist cc 20/30 -1 20/30 -1 Correction: Glasses Tonometry (Tonopen, 1:48 PM) Right Left Pressure 15 16 Pupils Pupils APD Right PERRL None Left PERRL None Visual Tse (Counting fingers) Right Left Full Full Extraocular Movement Right Left Full, Ortho Full, Ortho Neuro/Psych Oriented x3: Yes Mood/Affect: Normal Dilation Both eyes: 0.5% Proparacaine @ 1:47 PM Dilation #2 Both eyes: 1.0% Mydriacyl, 2.5% Phenylephrine @ 1:47 PM Dilation #3 Both eyes: 1.0% Mydriacyl, 2.5% Phenylephrine @ 1:49 PM Dilation Comments Patient cautioned that effects of dilation may last 2-7 hours dependant upon individual reaction. It was discussed that driving while dilated is not recommended. EXTERNAL: The ocular adnexae are unremarkable. 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 Mild Nonproliferative Diabetic Retinopathy OU -DM2 -recommend HgbA1C <7, BP and lipid control. OD: no csme -monitor OS: CIDME OS - s/p Avastin OS (10-03-20)--improved -has gone > 3 years -recurrent DME OS Avastin 08/31/2023 -5 months -has improved w/o intervention -hold injection and monitor -takes Plavix -stable 2. Pseudophakia OU -stable, Dr. Livingston F/u 3 months - dilate and OCT OU Azael Michael DO CC: George Kohler, OD PCP: Naveen Johnson III, MD documented in this encounter Nursing Notes * Kiara Liriano RN - 02/02/2024 1:42 PM EST Prashanth Doss is a 73 year old year old male who presents for Mild NPDR OU. Last Office Visit: 12/01/2023 (in office), Visit date not found (telemedicine) Patient currently states no change in vision. Are you diabetic? Yes. Do you check your blood sugars daily? YES. Fasting BS this mornin mg/dl. Last Hemoglobin A1C: Lab Results Component Value Date/Time HGBA1C 7.1 (H) 11/27/2023 10:03 AM HGBA1C 7.3 (H) 05/20/2023 09:11 AM HGBA1C 8.1 (H) 08/16/2022 09:31 AM HGBA1C 8.7 (H) 03/17/2020 09:38 AM HGBA1C 8.8 (H) 12/03/2019 08:18 AM HGBA1C 10.2 (H) 06/01/2019 12:[address]? yes OCT image(s) of both eyes acquired and filed/scanned into chart. 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, unspecified whether termite treater helper insulin use (HCC) Ordered: 02/02/2024 Scheduled Procedures Name Priority Associated Diagnoses Date/Ti [...] Additional history exists CKD HGB USE SMARTSET 06718 05/19/202405/19, 02/15/2022, 03/17/2020, Additional history exists CKD PHOS USE SMARTSET 17712 05/19/202404/24, 08/16/2022, 03/17/2020 Albumin/Creatinine Ratio 05/26/2024 024, 08/16/2022, 08/05/2021, Additional history exists GFR 05/27/2024 11/27/2023, 04/24, 08/16/2022, Additional history exists HbA1c 05/27/2024 11/27/2023, 04/24, 08/16/2022, Additional history exists Diabetic Eye Exam 06/28/2024 06/29/2023, , 06/23/2022, Additional history exists DTap/Tdap Vaccines (3 - Td or Tdap) 12/26/2026 12/26/2016, 09/12/2010, 11/22/1999 Lipid Panel 05/19/2028 05/20/2023, 01/24, 03/17/2020, Additional history exists Colonoscopy 10/30/2032 10/30/2022, 090 08/2022, 01/20/2012, Additional history exists Colorectal Cancer [...] this encounter Medical Devices Implanted Type Area Solar Energy Engineer Device Identifier Shelf Expiration Date Model / Serial / Lot Lens Intraoc 20.0 - [id number] - [id number] Implanted:Qty: 1 on 06/01/2018 by Nimesh Livingston MD at OR [facility] Right: Eye [employer]CH [employer]OM[employer] 12/23/2022 [id number] / [id number] / [id number] Lens Intraoc 19.5 - [id number] - [id number] Implanted:Qty: 1 on 06/22/2018 by Nimesh Livingston MD at OR [facility] Left: Eye BAUSCH & LOMB 10/23/2022 [id number] / [id number] / documented as of this encounter Visit Diagnoses Diagnosis 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
--- OUTSIDE RECORDS SUMMARY | 2024-02-13 20:16 | External Medical Summary | Summary of Care ---
Author Name Unknown Organization [facility] Address [address] [place] [address] Phone [phone] Care Team Providers Care Crop Puller Name Role Phone Alex ZARATE MD, Naveen Araujo Primary Care Provider Reason for Visit * Reason Comments Review Sleep Study PSG Encounter Details Date Type Department Care Team (Late st Contact Info) Description 12/28/2023 9:00 PM EST PulmDiagnostic Sleep Lab, [facility] [address] [place] [phone] [facility] [address] [place] [id number] Obstructive sleep apnea* Allergies Active Allergy Reactions Criticality Noted Date Comments Diazepam Neuro complications (Please comment) 05/25/2018 Severe headaches (able to take trade name "valium" without incident Simvastatin Rash 12/16/2011 documented as of this encounter (statuses as of 01/27/2024) Medications VITAMIN C 500 MG PO TABSIndications:DM type 2, causing other manifestations daily 60 0 04/13/19 09 Active MULTIVITAMIN/SUPERVISOR MULTIFOCAL LENS AL FORMULA OR TABSIndications:DM type 2, causing [...] AFFECTED AREA TWICE A DAY 60 mL 08/08/19 Active Metoprolol Tartrate 50 MG Oral Tablet (Lopressor) Take by mouth 1 Tablet in the morning AND 1 Tablet before bedtime. 180 Tablet 3 08/08/19 Active Naproxen 500 MG Oral Tablet (Naprosyn) Take by mouth 1 Tablet 2 times a day with morning and evening meals . 20 Tablet 11 08/08/19 Active Ketoconazole 2 % External Cream apply topically to affected area twice a day for 14 days to GROIN RASH 180 g 3 02/20/20 Active Edico GenomeTouch Ultra 2 w/Device KitIndications:DM type 2, not at goal (HCC) Use to check blood sugar daily. May check blood sugar up to 3 times daily if needed for signs/symptoms of high/low blood sugar. 1 Kit 02/22/20 Active Edico GenomeTouch Ultra Blue In Vitro Strip (Glucose Blood)Indications: Type 2 diabetes mellitus with hemoglobin A1c goal of less than 7.0% (HCC) Use to check blood sugar daily. May check up to three times daily if needed for signs/symptoms of high/low blood sugar 100 Strip 2 02/22/20 Active Edico GenomeTouch UltraSoft LancetsIndications :Type 2 diabetes mellitus with hemoglobin A1c goal of less than 7.0% (HCC) Use to check blood sugar daily. May check up to 3 times daily as needed for signs/symptoms of high/low blood sugar. 400 Each 2 02/22/20 Active metFORMIN HCl ER 500 MG Oral Tablet Extended Release 24 Hour (Glucophage XR)Indications:DM type 2, not at goal (HCC) Take 2 Tablets by mouth in the morning. 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 documented in this encounter Plan of Treatment Upcoming Encounters Date Type Department Care Team (Late st Contact Info) Description 02/02/2024 1:45 PM EST Office Visit Ophthalmology, [facility] [address] [place] [address] Azael Michael DO [address] [place] [address] 06/10/2024 9:20 AM EDT Office Visit Family Practice [facility] [address] [place] [address] Naveen Johnson III, MD [address] [place] [address] Scheduled Procedures Name Priority Associated Diagnoses Date/Ti [...] Additional history exists CKD HGB USE SMARTSET 21993 05/19/202405/19, 02/15/2022, 03/17/2020, Additional history exists CKD PHOS USE SMARTSET 02518 05/19/202404/24, 08/16/2022, 03/17/2020 Albumin/Creatinine Ratio 05/26/2024 024, [...] this encounter Medical Devices Implanted Type Area Business Systems Architect Device Identifier Shelf Expiration Date Model / Serial / Lot Lens Intraoc 20.0 - [id number] - [id number] Implanted:Qty: 1 on 06/01/2018 by Nimesh Livingston MD at OR [facility] Right: Eye [employer]CH [employer]OMB 12/23/2022 [id number] / [id number] / [id number] Lens Intraoc 19.5 - [id number] - [id number] Implanted:Qty: 1 on 06/22/2018 by Nimesh Livingston MD at OR [facility] Left: Eye BAUSCH [employer] LOMB 10/23/2022 [id number] / [id number] / documented as of this encounter Visit Diagnoses Diagnosis Obstructive sleep apnea- Primary Obstructive sleep apnea (adult) (pediatric) documented in this encounter Care Teams Crop Puller Relationship Specialty Start Date End Date Naveen Johnson III, MD [address] [place] [place] [address] PCP - General 03/16/1997 documented as of this encounter
--- OUTSIDE RECORDS SUMMARY | 2024-02-13 20:16 | External Medical Summary | Summary of Care ---
Author Name Unknown Organization [facility] Address [address] [place] [address] Phone [phone] Care Team Providers Care Rfid Analyst Name Role Phone Alex ZARATE MD, John E Primary Care Provider [phone] Reason for Visit * Reason Comments eRx-Medication Refill Encounter Details Date Type Department Care Team (Late st Contact Info) Description 02/02/2024 Refill Family Practice [facility] [address] [place] [address] Arslan Kennedy III, MD [address] [place] [address] Type 2 diabetes mellitus with hemoglobin A1c goal of less than 7.0% ([facility]) Allergies Active Allergy Reactions Criticality Noted Date Comments Diazepam Neuro complications (Please comment) 05/25/2018 Severe headaches (able to take trade name "valium" without incident Simvastatin Rash 12/16/2011 documented as of this encounter (statuses as of 02/02/2024) Medications VITAMIN C 500 MG PO TABSIndications:D [...] to GROIN RASH 180 g 3 Active Solfo Ultra 2 w/Device KitIndications:DM type 2, not at goal (HCC) Use to check blood sugar daily. May check blood sugar up to 3 times daily if needed for signs/symptoms of high/low blood sugar. 1 Kit Active Solfo Ultra Blue In Vitro Strip (Glucose Blood)Indications :Type 2 diabetes mellitus with hemoglobin A1c goal of less than 7.0% ([facility]) Use to check blood sugar daily. May check up to three times daily if needed for signs/symptoms of high/low blood sugar 100 Strip 2 Active Thermal Nomaduch UltraSoft LancetsIndication s:Type 2 diabetes mellitus with hemoglobin A1c goal of less than 7.0% ([facility]) Use to check blood sugar daily. May check up to 3 times daily as needed for signs/symptoms of high/low blood sugar. 400 Each 2 Active metFORMIN HCl ER 500 MG Oral Tablet Extended Release 24 Hour (Glucophage XR)Indications:DM type 2, not at goal (HCC) Take 2 Tablets by mouth in the morning. 180 Tablet 3 024 Active Cyanocobalamin 1000 MCG Oral Tablet (Cyanocobalamin) Take 1 Tablet by mouth in the morning. 100 Tablet 3 024 Active Empagliflozin 25 MG Oral Tablet (Jardiance) Take 1 Tablet by mouth in the morning. 90 Tablet 3 024 Active Ozempic (2 MG/DOSE) 8 MG/3ML Subcutaneous Solution Pen-injector (Semaglutide (2 MG/DOSE)) Inject 2 mg under the skin once a week. 9 mL 3 024 Active Venlafaxine HCl ER 150 MG Oral [...] BEFORE MEALS 270 Tablet 3 024 Active Repaglinide 2 MG Oral Tablet (Prandin)Indicati ons:Type 2 diabetes mellitus with hemoglobin A1c goal of less than 7.0% (HCC) TAKE 1 TABLET BY MOUTH 3 TIMES DAILY BEFORE MEALS 270 Tablet 1 024 2023 Discontinued Hospital, Clinic, or Other [...] unspecified whether termite control technician insulin use ([facility]) 1.5 mg PERINEURAL PRN 08/31/2023 08/30/2024 [...] encounter Miscellaneous Notes * Telephone Encounter - Judith Fernandez [facility] - 02/02/2024 4:21 PM ESTSigned Prescriptions: Disp Refills Repaglinide 2 MG Oral Tablet (Prandin) 270 Ta*3 Sig: TAKE 1 TABLET BY MOUTH 3 TIMES DAILY BEFORE MEALSAuthorizing Provider: ARSLAN KENNEDY III User: JUDITH FERNANDEZ documented in this encounter Plan of Treatment Upcoming Encounters Date Type Department Care Team (Late st Contact Info) Description 05/02/2024 1:30 PM EDT Office Visit Ophthalmology, [facility] [address] [address] Azael Michael, [address] [address] 06/10/2024 9:20 AM EDT Office Visit Family Practice [facility] [address] [place] [address] Arslan Kennedy III, MD [address] [place] [address] Scheduled Procedures Name Priority Associated Diagnoses Date/Ti [...] Additional history exists CKD HGB USE SMARTSET 95581 05/19/202405/19, 02/15/2022, 03/17/2020, Additional history exists CKD PHOS USE SMARTSET 39863 05/19/202404/24, 08/16/2022, 03/17/2020 Albumin/Creatinine Ratio 05/26/2024 024, [...] this encounter Medical Devices Implanted Type Area Penetration Tester Device Identifier Shelf Expiration Date Model / Serial / Lot Lens Intraoc 20.0 - [id number] - [id number] Implanted:Qty: 1 on 06/01/2018 by Nimesh Livingston MD at OR [facility] Right: Eye [employer]OM[employer] 12/23/2022 [id number] / [id number] / [id number] Lens Intraoc 19.5 - [id number] - [id number] Implanted:Qty: 1 on 06/22/2018 by Nimesh Livingston MD at OR [facility] Left: Eye BAUSCH [employer] LOMB 10/23/2022 [id number] / [id number] / documented as of this encounter Visit Diagnoses Diagnosis Type 2 diabetes mellitus with hemoglobin A1c goal of less than 7.0% (HCC) documented in this encounter Care Teams Rfid Analyst Relationship Specialty Start Date End Date Arslan Kennedy III, MD [address] [place] [address], [place] [address] PCP - General 03/16/1997 documented as of this encounter
--- NOTE | 2024-02-13 21:24 | Emergency Department Note ---
Impression & Plan Burn erythema of foot, Diabetes ED Provider Note Provider: Jerrell Crawford MD CHIEF COMPLAINT: Feet burn, referred HISTORY OF PRESENT ILLNESS: Patient is a 73-year-old gentleman history of CAD with stent, and type 2 diabetes presenting here referred from urgent care for evaluation of soto to his bilateral feet. Patient states on Thursday he had some water that spilled and fell onto his feet. Was in slippers that absorb the water. Had some soto of the feet and as there is a bit of swelling and redness went to urgent care on for evaluation of these. Some soto to the top of the feet but no other soto elsewhere. States that the urgent care on these were cleaned and started on Keflex. Has been taking that over the last 2 and half days or so. Went back for recheck as advised by the urgent care today. After evaluation there they are concerned about some expanding redness prickly of the top of the left foot system here for evaluation. Patient denies fever. Denies any other new trauma. States he has a little bit of neuropathy has a little bit of discomfort on the left foot but no other significant pain. Has been able to walk but limping a little bit. PAST MEDICAL HISTORY: As noted above MEDICATIONS: Reviewed his home medications SOCIAL HISTORY: Former smoker PHYSICAL EXAM: GENERAL: alert and oriented in no acute distress on stretcher Head: normocephalic and atraumatic EYES: No injection, discharge or icterus. NECK: Trachea midline. ENT: Mucous membranes pink and moist. LUNGS: Airway patent. No retractions. Breath sounds clear HEART: Regular rate and rhythm. No chest wall tenderness ABDOMEN: Soft and non-tender, without guarding or rebound. SKIN: Acyanotic, warm, dry feet as below EXTREMITIES: Without swelling, tenderness or deformity other than the bilateral feet. The right foot has some small area of redness and granulation overlying the dorsum of the foot just proximal to the great toe. The left foot has some diffuse edema and erythema extending towards the ankle prickly in the dorsum of the foot with an approximately centimeter and a half area of yellow to greenish granulation. With a sterile Q-tip this is not able to be scraped or removed. Intact movement of the bilateral toes. No tenderness or swelling into the lower legs bilaterally. NEUROLOGICAL: No focal deficits moving all extremities intact sensation of the bilateral feet. No aphasia. No facial droop or slurred speech. Ambulatory. Patient's laboratory studies reviewed. Differential includes Soft tissue injury, superficial partial-thickness burn, deep partial thickness burn, full-thickness burn, infection, neurovascular compromise, smoke inhalation, CO poisoning, inhalation injury, as well as other pathologies. IMPRESSION/MEDICAL DECISION MAKING: Patient sustained a burn to his bilateral feet from boiling water approximate 4 days ago. Has been on antibiotics and outpatient with Keflex for almost 2 days. No fevers. No systemic symptoms. Left foot in particular has a little bit of extra granulation tissue but more some surrounding erythema and swelling. Was outlined by urgent care who referred him here today. Take a surface swab from this for what its worth. Will obtain basic blood work. Given a dose of ceftriaxone. Is high risk for infection given his history of diabetes and age. Do not see any findings concerning for necrotizing fasciitis. No significant trauma I doubt fracture or dislocation. Some granulation tissue predominately in the right little bit on the left in addition to the area of erythema and swelling. 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 Evidently patient does have some delayed wound healing history and they were concerned about him getting appropriate wound care and thus sent him here for evaluation. I do not feel there is any need for additional debridement at this point. Again patient did receive a dose IV ceftriaxone will give a dose of daptomycin for MRSA coverage for 24 hours. Blood work here without significant leukocytosis. Chronic CKD noted. No signs of significant renal dysfunction. Again doubt sepsis. Did discuss with the patient what options he has for additional wound care at home. It is the weekend before major holiday and there could be some delay with outpatient wound care wound care clinic. In shared decision making, given his questions of ability to take care of these wounds at home and history of delayed healing in the past as well as probable inability to get very close wound care follow-up, will bring in for further observation and the hospitalist was contacted. DIAGNOSIS: Soto bilateral feet, type II diabetic with diabetic neuropathy DISPOSITION: Hospitalist will evaluate Patient was agreeable with this plan. Past Med/Surg History Problem List (Updated 02/13/24 @ 23:05 by Jerrell Crawford M.D.) Burn erythema of foot (Acute) CAD (coronary artery disease) S/P drug eluting coronary stent placement Diabetes (Acute) HLD (hyperlipidemia) Admitted to intensive care unit ST elevation (STEMI) myocardial infarction (Acute) Chest pain (Acute) Acute [place] HTN (hypertension) Medical History CAD (coronary artery disease) Diabetes HLD (hyperlipidemia) HTN (hypertension) ST elevation (STEMI) myocardial infarction Surgical History S/P drug eluting coronary stent placement Social History Smoking Status: Never smoker Second Hand Exposure: No; Do You Dip or Chew Tobacco: No; Hx Alcohol Use: Yes Alcohol type: wine Hx Substance Use: No Preferred Language: Jamaican Communication Ability: Effective Intake Rn Required: No Beliefs That Will Affect Care: None marital status: Current Living Situation: Spouse 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[employer], 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 [employer] Feels Safe at Home: Yes Assistive Devices: Glasses Allergies Allergies Allergy/AdvReac Type Severity Reaction Status Date / Time diazepam [From Valium] Allergy Severe Headache Unverified 07/10/23 11:13 simvastatin Allergy Intermediate RASH Unverified 07/10/23 11:13 Home Meds Home Medications Medication Instructions Recorded Confirmed clomipramine 75 mg capsule 150 mg PO HS 12/28/18 02/13/24 ascorbic acid (vitamin C) 125 mg 125 mg PO QAM 09/22/20 07/10/23 chewable tablet (Vitamin C) naproxen 500 mg tablet 500 mg PO BID PRN Pain 09/22/20 07/10/23 trazodone 100 mg tablet 150 mg PO HS 12/27/20 02/13/24 clonazepam 0.5 mg tablet 0.5 mg PO TID PRN Anxiety 07/10/23 02/13/24 atorvastatin 80 mg tablet 80 mg PO QAM 02/13/24 02/13/24 cephalexin 500 mg capsule 500 mg PO TID 02/13/24 02/13/24 metformin 500 mg tablet,extended 1,000 mg PO QAM 02/13/24 02/13/24 release 24 hr metoprolol tartrate 50 mg tablet 50 mg PO AMHS 02/13/24 02/13/24 repaglinide 2 mg tablet 2 mg PO AC 02/13/24 02/13/24 silver sulfadiazine 1 % topical 1 applic topical DAILY 02/13/24 02/13/24 cream valsartan 80 mg tablet 80 mg PO QAM 02/13/24 02/13/24 venlafaxine 150 mg 150 mg PO AMPM 02/13/24 02/13/24 capsule,extended release 24 hr Previous Rx's Medication Instructions Recorded clopidogrel 75 mg tablet 75 mg PO QAM #90 tabs 07/10/23 Results & Data (ED) Vital Signs Vital Signs - 24 hr 02/13/24 20:12 02/13/24 22:22 02/13/24 23:02 Temperature 36.8 C Temperature Source Oral Pulse Rate 76 Pulse Rate [Apical] 73 73 Respiratory Rate 20 16 18 Respiratory Effort / Characteristics Non-Labored Spontaneous Respiratory Depth Normal Blood Pressure 124/65 Blood Pressure [Left Arm] 136/79 119/84 Blood Pressure Mean 84 Blood Pressure Mean [Left Arm] 98 95 Pulse Oximetry 98 98 100 Oxygen Delivery Method Room Air Sepsis Recent Fever Within 48 Hours No Sepsis New/Unexplained Change in Mental Status N/A Sepsis Action Taken by Nursing No Action Required Laboratory Data 02/13/24 20:41 02/13/24 20:41 Lab Results 02/13/24 Range/Units 20:41 WBC 8.79 (4.8-10.8) K/ul RBC 3.96 L (4.70-6.10) M/uL Hgb 11.2 L (14.0-18.0) g/dl Hct 34.8 L (42.0-52.0) % MCV 87.9 (80.0-100.0) fL MCH 28.3 (25.0-34.0) pg MCHC 32.2 (32.0-36.0) g/dL RDW Std Deviation 42.3 (36.4-46.3) fL RDW Coeff of Aaron 13.2 (11.5-14.5) % Plt Count 302 (130-400) K/uL MPV 9.3 L (9.4-12.4) fL Immature Gran % (Auto) 0.6 % Neut % (Auto) 70.4 % Lymph % (Auto) 15.8 % [place] % (Auto) 9.7 % Eos % (Auto) 3.0 % Baso % (Auto) 0.5 % Neut # (Auto) 6.20 (1.40-6.50) K/uL Lymph # (Auto) 1.39 (1.20-3.40) K/uL [place] # (Auto) 0.85 H (0.11-0.59) K/uL Eos # (Auto) 0.26 (0.00-0.50) K/uL Baso # (Auto) 0.04 (0.00-0.20) K/uL Immature Gran # (Auto) 0.05 (0.01-0.20) K/uL Sodium 135 L (136-145) mmol/L Potassium 4.1 (3.5-5.1) mmol/L Chloride 102 (98-107) mmol/L Carbon Dioxide 25 (21-32) mmol/L Anion Gap 8 (3-11) BUN 17 (6-23) mg/dl Creatinine 1.74 H (0.6-1.4) mg/dl Est Cr Clr Drug Dosing 41.4 ml/min eGFR 41.40 BUN/Creatinine Ratio 9.8 L (10-20) Glucose 108 H (70-99(Fasting)) mg/dl Calcium 8.9 (8.6-10.3) mg/dl Total Bilirubin 0.4 (0.2-1.0) mg/dl AST 14 (13-39) U/L ALT 12 (7-52) U/L Alkaline Phosphatase 85 (34-104) U/L Total Protein 6.9 (6.0-8.3) gm/dl Albumin 3.6 (3.4-5.0) gm/dl Globulin 3.3 (2.5-4.0) gm/dl Albumin/Globulin Ratio 1.1 (0.9-2) Administered Medications Discontinued Medications Acetaminophen (Acetaminophen 500 Mg Tab) 1,000 mg PO NOW STA Stop: 02/13/24 22:10 Last Admin: 02/13/24 22:14 Dose: 1,000 mg Documented By: TAYLA Ceftriaxone Sodium (Rocephin) 2,000 mg in 50 mls @ 100 mls/hr IV NOW STA Stop: 02/13/24 21:37 Last Infusion: 02/13/24 22:08 Dose: Infused Documented By: Admin: 02/13/24 21:27 Dose: 100 mls/hr Documented By: TAYLA Discharge Plan Visit Data Chief Complaint: Foot Injury/Pain Stated Complaint: SOTO ON BILATERAL FEET ED Provider: Jerrell Crawford Discharge Problem: Burn erythema of foot, Diabetes Forms Stand Alone Forms: My [facility] [employer] Prescriptions Prescriptions: No Action clopidogrel 75 mg tablet 75 mg PO QAM Qty: 90 3RF trazodone 100 mg tablet 150 mg PO HS clomipramine 75 mg Capsule 150 mg PO HS naproxen 500 mg Tablet 500 mg PO BID PRN (Reason: Pain) ascorbic acid (vitamin C) [Vitamin C] 125 mg Tablet,Chewable 125 mg PO QAM clonazepam 0.5 mg tablet 0.5 mg PO TID PRN (Reason: Anxiety) valsartan 80 mg tablet 80 mg PO QAM metformin 500 mg tablet extended release 24 hr 1,000 mg PO QAM metoprolol tartrate 50 mg tablet 50 mg PO AMHS atorvastatin 80 mg tablet 80 mg PO QAM silver sulfadiazine 1 % cream 1 applic TOPICAL DAILY Rx Instructions: APPLY TO BURN cephalexin 500 mg capsule 500 mg PO TID repaglinide 2 mg tablet 2 mg PO AC venlafaxine 150 mg capsule,extended release 24hr 150 mg PO AMPM Referrals Referrals: Naveen Johnson MD [Primary Care Provider] - Discharge Problem: Burn erythema of foot Qualifiers: Encounter type: subsequent encounter Laterality: unspecified laterality Q ualified Code(s): T25.129D - Burn of first degree of unspecified foot, subsequent encounter Diabetes Qualifiers: Diabetes mellitus type: type 2 Diabetes mellitus remote computer terminal 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
[2024-02-13] MEDS: cefTRIAXone SODIUM 2,000 MG/50 ML BAG IV STA (21:27)
[2024-02-13 21:31] LABS: Basophils # (auto) 0.04 K/uL (0.00-0.20); Basophils % (auto) 0.5 %; Eosinophils # (auto) 0.26 K/uL (0.00-0.50); Hematocrit (blood only) 34.8 % (42.0-52.0); Hemoglobin 11.2 g/dl (14.0-18.0); Immature Granulocytes # (auto) 0.05 K/uL (0.01-0.20); Immature Granulocytes % (auto) 0.6 %; Lymphocytes # (auto) 1.39 K/uL (1.20-3.40); Lymphocytes % (auto) 15.8 %; Mean Corpuscular Hemoglobin 28.3 pg (25.0-34.0); Mean Corpuscular Hgb Conc 32.2 g/dL (32.0-36.0); Mean Corpuscular Volume 87.9 fL (80.0-100.0); Mean Platelet Volume 9.3 fL (9.4-12.4); Monocytes # (auto) 0.85 K/uL (0.11-0.59); Monocytes % (auto) 9.7 %; Neutrophils % (auto) 70.4 %; Platelet Count 302 K/uL (130-400); RDW Coefficient of Variation 13.2 % (11.5-14.5); RDW Standard Deviation 42.3 fL (36.4-46.3); Red Blood Count 3.96 M/uL (4.70-6.10); White Blood Count 8.79 K/ul (4.8-10.8)
[2024-02-13] MEDS: ACETAMINOPHEN 500 MG TAB PO STA (22:14)
[2024-02-13 23:23] LABS: Albumin Globulin Ratio 1.1 (0.9-2); Albumin Level 3.6 gm/dl (3.4-5.0); BUN Creatinine Ratio 9.8 (10-20); Bilirubin,Total 0.4 mg/dl (0.2-1.0); Calcium 8.9 mg/dl (8.6-10.3); Creatinine Clr Calc Pharmacy 41.4 ml/min; Globulin 3.3 gm/dl (2.5-4.0); Potassium 4.1 mmol/L (3.5-5.1); Total Protein 6.9 gm/dl (6.0-8.3)
[2024-02-14] MEDS: DAPTOmycin 275 MG in SYRINGE 0 ML IV ONE (00:03)
--- NOTE | 2024-02-14 03:14 | History & Physical Report ---
Date of Service February 14, 2024 Assessment & Plan (1) Burn erythema of foot: Plan: 73-year-old male with past medical history significant for type 2 diabetes, diabetic neuropathy, dyslipidemia, CKD stage III, major depression, anxiety, attention deficit disorder without hyperactivity, history of CAD status post stent comes with bilateral foot burn wounds. Patient had boiling water spilled on bilateral feet on 02/04/2024. He was using triple antibiotic cream. His went to urgent care on 02/10 and for partial-thickness [place] of foot he was given silver sulfadiazine cream to apply daily and also Keflex and advised to come back in 2 days. Patient went back to urgent care in 02/12 because of delayed healing patient was sent to ER. Per photos taken urgent care patient has partial-thickness burn of both of foot. Patient denies any fevers. Denies any pain. Denies any chest pain shortness of breath, no nausea. No abdominal pain. Normal bowel and bladder movements. No headache. No runny nose or sore throat. Currently resting comfortably and hemodynamically stable. Bilateral burning wounds of foot Delayed healing History of diabetes Empiric daptomycin and cefepime Will follow cultures taken in ER Wound care Monitor response Diabetes Hold home p.o. medications Lantus and sliding scale Glycemic pharmacy consult Close monitor History of CAD s/p stent On Plavix and metoprolol Holding statin while on Dapto History of depression and anxiety continue home medications CKD stage III Baseline creatinine 1.9 Will follow labs Hypertension On metoprolol and valsartan Will monitor DVT prophylaxis Heparin subcu Disposition Medical floor Full code. History of Present Illness Chief Complaint: Bilateral foot burn wounds Primary Care Provider: Naveen Johnson MD 73-year-old male with past medical history significant for type 2 diabetes, diabetic neuropathy, dyslipidemia, CKD stage III, major depression, anxiety, attention deficit disorder without hyperactivity, history of CAD status post stent comes with bilateral foot burn wounds. Patient had boiling water spilled on bilateral feet on 02/04/2024. He was using triple antibiotic cream. His went to urgent care on 02/10 and for partial-thickness [place] of foot he was given silver sulfadiazine cream to apply daily and also Keflex and advised to come back in 2 days. Patient went back to urgent care in 02/12 because of delayed healing patient was sent to ER. Per photos taken at urgent care patient has partial-thickness burn of both of foot. Patient denies any fevers. Denies any pain. Denies any chest pain shortness of breath, no nausea. No abdominal pain. Normal bowel and bladder movements. No headache. No runny nose or sore throat. Currently resting comfortably and hemodynamically stable. Past medical history. As mentioned above. Past surgical history. Colonoscopy. Dental surgery. Bilateral cataracts. Social history. Quit smoking 1976. Smoked 1 pack a day for 5 years. Alcohol 1-2 drinks per month. No drug use. Family history. Father had hypertension. Macular degeneration. Mother had heart disorder. Hypertension. Thyroid disorder. Sister had cancer. Brother had cancer. Allergies Allergy/AdvReac Type Severity Reaction Status Date / Time diazepam [From Valium] Allergy Severe Headache Unverified 07/10/23 11:13 simvastatin Allergy Intermediate RASH Unverified 07/10/23 11:13 Home Medications Medication Instructions Recorded Confirmed Type clomipramine 75 mg capsule 150 mg PO HS 12/28/18 02/13/24 History trazodone 100 mg tablet 150 mg PO HS 12/27/20 02/13/24 History clonazepam 0.5 mg tablet 0.5 mg PO TID PRN Anxiety 07/10/23 02/13/24 History clopidogrel 75 mg tablet 75 mg PO QAM #90 tabs 07/10/23 02/13/24 Rx ascorbic acid (vitamin C) 500 mg 500 mg PO DAILY 02/13/24 02/13/24 History tablet (Vitamin C) atorvastatin 80 mg tablet 80 mg PO QAM 02/13/24 02/13/24 History cephalexin 500 mg capsule 500 mg PO TID 02/13/24 02/13/24 History empagliflozin 25 mg tablet 25 mg PO QAM 02/13/24 02/13/24 History (Jardiance) metformin 500 mg tablet,extended 1,000 mg PO QAM 02/13/24 02/13/24 History release 24 hr metoprolol tartrate 50 mg tablet 50 mg PO AMHS 02/13/24 02/13/24 History multivitamin with minerals 1 tab PO DAILY 02/13/24 02/13/24 History repaglinide 2 mg tablet 2 mg PO AC 02/13/24 02/13/24 History semaglutide 2 mg/dose (8 mg/3 mL) 2 mg subcut WK 02/13/24 02/13/24 History subcutaneous pen injector (Ozempic) silver sulfadiazine 1 % topical 1 applic topical DAILY 02/13/24 02/13/24 History cream valsartan 80 mg tablet 80 mg PO QAM 02/13/24 02/13/24 History venlafaxine 150 mg 150 mg PO AMPM 02/13/24 02/13/24 History capsule,extended release 24 hr vitamin E 268 mg (400 unit) capsule 268 mg PO DAILY 02/13/24 02/13/24 History Past Med/Surg History Problem List (Updated 02/13/24 @ 23:05 by Jerrell Crawford M.D.) Burn erythema of foot (Acute) CAD (coronary artery disease) S/P drug eluting coronary stent placement Diabetes (Acute) HLD (hyperlipidemia) Admitted to intensive care unit ST elevation (STEMI) myocardial infarction (Acute) Chest pain (Acute) Acute [place] HTN (hypertension) Medical History CAD (coronary artery disease) Diabetes HLD (hyperlipidemia) HTN (hypertension) ST elevation (STEMI) myocardial infarction Surgical History S/P drug eluting coronary stent placement Social History Smoking Status: Former smoker Tobacco Type: Declines Second Hand Exposure: No; Do You Dip or Chew Tobacco: No; Tobacco Cessation Education Requested by Patient: No Hx Alcohol Use: Yes Alcohol type: wine Hx Substance Use: No Preferred Language: Occitan Communication Ability: Effective Wetlands Technician Required: No Beliefs That Will Affect Care: None marital status: Current Living Situation: Alone 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 ENT- oropharynx clear Neck- supple, no JVD. Lungs- clear to auscultation no wheezing or crackles. Heart- regular rhythm; no murmur, no gallop. Abdomen- normal bowel sounds, soft, nontender, no distension Extremities- b/l foot open burn wounds as seen on photos taken at urgent care today (in [facility]) Neuro- alert, oriented PERRL, no facial palsy; no dysarthria; moves extremities Results & Data Results & Data Vital Signs (Past 12 Hours) Vital Signs Temp Pulse Pulse Resp BP BP Pulse Ox 02/14/24 02:08 72 15 150/83 H 98 02/14/24 01:18 71 16 134/78 100 02/13/24 23:37 71 16 119/84 99 02/13/24 23:02 73 18 119/84 100 02/13/24 22:22 73 16 136/79 98 02/13/24 20:12 36.8 C 76 20 124/65 98 O2 Del Method 02/14/24 02:08 02/14/24 01:18 02/13/24 23:37 Room Air 02/13/24 23:02 02/13/24 22:22 02/13/24 20:12 Room Air Diagnostic Findings Laboratory Results WBC 8.79 K/ul (4.8-10.8) 02/13/24 20:41 RBC 3.96 M/uL (4.70-6.10) L 02/13/24 20:41 Hgb 11.2 g/dl (14.0-18.0) L 02/13/24 20:41 Hct 34.8 % (42.0-52.0) L 02/13/24 20:41 MCV 87.9 fL (80.0-100.0) 02/13/24 20:41 MCH 28.3 pg (25.0-34.0) 02/13/24 20:41 MCHC 32.2 g/dL (32.0-36.0) 02/13/24 20:41 RDW Std Deviation 42.3 fL (36.4-46.3) 02/13/24 20:41 RDW Coeff of Aaron 13.2 % (11.5-14.5) 02/13/24 20:41 Plt Count 302 K/uL (130-400) 02/13/24 20:41 MPV 9.3 fL (9.4-12.4) L 02/13/24 20:41 Immature Gran % (Auto) 0.6 % 02/13/24 20:41 Neut % (Auto) 70.4 % 02/13/24 20:41 Lymph % (Auto) 15.8 % 02/13/24 20:41 [place] % (Auto) 9.7 % 02/13/24 20:41 Eos % (Auto) 3.0 % 02/13/24 20:41 Baso % (Auto) 0.5 % 02/13/24 20:41 Neut # (Auto) 6.20 K/uL (1.40-6.50) 02/13/24 20:41 Lymph # (Auto) 1.39 K/uL (1.20-3.40) 02/13/24 20:41 [place] # (Auto) 0.85 K/uL (0.11-0.59) H 02/13/24 20:41 Eos # (Auto) 0.26 K/uL (0.00-0.50) 02/13/24 20:41 Baso # (Auto) 0.04 K/uL (0.00-0.20) 02/13/24 20:41 Immature Gran # (Auto) 0.05 K/uL (0.01-0.20) 02/13/24 20:41 Sodium 135 mmol/L (136-145) L 02/13/24 20:41 Potassium 4.1 mmol/L (3.5-5.1) 02/13/24 20:41 Chloride 102 mmol/L (98-107) 02/13/24 20:41 Carbon Dioxide 25 mmol/L (21-32) 02/13/24 20:41 Anion Gap 8 (3-11) 02/13/24 20:41 BUN 17 mg/dl (6-23) 02/13/24 20:41 Creatinine 1.74 mg/dl (0.6-1.4) H 02/13/24 20:41 Est Cr Clr Drug Dosing 41.4 ml/min 02/13/24 20:41 eGFR 41.40 02/13/24 20:41 BUN/Creatinine Ratio 9.8 (10-20) L 02/13/24 20:41 Glucose 108 mg/dl (70-99(Fasting)) H 02/13/24 20:41 Calcium 8.9 mg/dl (8.6-10.3) 02/13/24 20:41 Total Bilirubin 0.4 mg/dl (0.2-1.0) 02/13/24 20:41 AST 14 U/L (13-39) 02/13/24 20:41 ALT 12 U/L (7-52) 02/13/24 20:41 Alkaline Phosphatase 85 U/L (34-104) 02/13/24 20:41 Total Protein 6.9 gm/dl (6.0-8.3) 02/13/24 20:41 Albumin 3.6 gm/dl (3.4-5.0) 02/13/24 20:41 Globulin 3.3 gm/dl (2.5-4.0) 02/13/24 20:41 Albumin/Globulin Ratio 1.1 (0.9-2) 02/13/24 20:41 Code Status & VTE Plan VTE Prophylaxis Plan VTE Prophylaxis will be ordered: Yes (1) Burn erythema of foot Encounter type: subsequent encounter Laterality: unspecified laterality Qualified Code(s): T25.129D - Burn of first degree of unspecified foot, subsequent encounter
[2024-02-14] MEDS ORDERED: GLUCAGON FOR INJ 1 MG VIAL SQ PRN (03:49)
[2024-02-14] MEDS ORDERED: GLUCOSE 40% GEL 15 GM TUBE PO PRN (03:49)
[2024-02-14] MEDS ORDERED: CARBOHYDRATES FOR HYPOGLYCEMIA PO PRN (03:49)
[2024-02-14] MEDS ORDERED: POLYETHYLENE (MIRALAX) 17 GM PACK PO PRN (03:49)
[2024-02-14] MEDS ORDERED: DEXTROSE 50% 50 ML SYRINGE IV PRN (03:49)
[2024-02-14] MEDS ORDERED: ACETAMINOPHEN 325 MG TAB PO PRN (03:49)
[2024-02-14] MEDS ORDERED: GLUCOSE 10 TAB/TUBE PO PRN (03:49)
[2024-02-14] MEDS ORDERED: PHARMACY GLYCEMIC MGMT CONSULT PRN (03:49)
[2024-02-14] MEDS: SODIUM CHLORIDE 0.9% 1,000 ML IV SCH (04:48)
[2024-02-14] MEDS: HEPARIN SOD 5,000 UNIT/0.5 ML VIAL SQ SCH (06:31)
[2024-02-14] MEDS: CEFEPIME 2000MG 2,000 MG/20 ML SYR IV SCH (06:32)
[2024-02-14] MEDS: CEROVITE ADV FORMULA TAB PO SCH (07:58)
[2024-02-14] MEDS: CLOPIDOGREL BISULFATE 75 MG TAB PO SCH (07:58)
[2024-02-14] MEDS: VALSARTAN 80 MG TAB PO SCH (07:58)
[2024-02-14] MEDS: ASCORBIC ACID 500 MG TAB PO SCH (07:59)
[2024-02-14] MEDS: VENLAFAXINE HCL XR 150 MG CAPXR PO SCH (07:59)
[2024-02-14] MEDS: TOCOPHERYL, DL-ALPHA 400 UNITS 180 MG CAP PO SCH (07:59)
[2024-02-14] MEDS: METOPROLOL TARTRATE 50 MG TAB PO SCH (07:59)
[2024-02-14 08:34] LABS: Basophils # (auto) 0.05 K/uL (0.00-0.20); Basophils % (auto) 0.6 %; Eosinophils # (auto) 0.26 K/uL (0.00-0.50); Eosinophils % (auto) 3.2 %; Hematocrit (blood only) 34.5 % (42.0-52.0); Hemoglobin 11.4 g/dl (14.0-18.0); Immature Granulocytes # (auto) 0.05 K/uL (0.01-0.20); Immature Granulocytes % (auto) 0.6 %; Lymphocytes # (auto) 1.84 K/uL (1.20-3.40); Lymphocytes % (auto) 22.9 %; Mean Corpuscular Hemoglobin 28.9 pg (25.0-34.0); Mean Corpuscular Volume 87.6 fL (80.0-100.0); Mean Platelet Volume 9.1 fL (9.4-12.4); Monocytes # (auto) 0.76 K/uL (0.11-0.59); Monocytes % (auto) 9.4 %; Neutrophils # (auto) 5.09 K/uL (1.40-6.50); Neutrophils % (auto) 63.3 %; Platelet Count 278 K/uL (130-400); RDW Standard Deviation 42.3 fL (36.4-46.3); Red Blood Count 3.94 M/uL (4.70-6.10); White Blood Count 8.05 K/ul (4.8-10.8)
[2024-02-14] MEDS: INSULIN ASPART PER UNIT CHARGE SC SCH ×2 (08:37→23:41)
[2024-02-14] MEDS: LANTUS PER UNIT CHARGE SQ SCH ×2 (08:37→21:11)
[2024-02-14 09:16] LABS: BUN Creatinine Ratio 9.6 (10-20); Calcium 8.7 mg/dl (8.6-10.3); Magnesium 1.5 mg/dl (1.7-2.4); Potassium 3.8 mmol/L (3.5-5.1)
[2024-02-14 09:18] LABS: Estimated Average Glucose 157 mg/dl; Hemoglobin A1C 7.1 % (4.5-5.6)
[2024-02-14] MEDS: SILVER SULFADIAZINE 1% CR 50 GM JAR TOP SCH (09:22)
[2024-02-14] MEDS: MAGNESIUM SULFATE / D5W 1 GM/100 ML BAG IV SCH (13:06)
--- NOTE | 2024-02-14 15:12 | Pharmacy Report ---
Pharmacy Glycemic Short Note 2 - Date of Service February 14, 2024 - Glycemic Short BSG Results (Last 24 hours): 02/13/24 02/14/24 02/14/24 20:41 07:31 08:27 Glucose 108 H 151 H POC Glucose 181 H 02/14/24 11:20 Glucose POC Glucose 81 OUTPATIENT ANTIDIABETIC REGIMEN: * Empagliflozin * Metformin * Repaglinide * Semaglutide SQ - Weekly on Thursday * A1c = 7.1% ASSESSMENT: * Prashanth is a 73 yo with h/o T2DM admitted for bilateral foot wounds. He has been started on broad spectrum antibiotics. * Oral anti-diabetic agents were held on admission. Patient started on low dose basal + bolus insulin. BSG of 151 mg/dL this morning corrected to 81 mg/dL at lunch time after 7 units of Novolog. Will loosen Novolog CF and CR. * Change basal insulin to dose per BSG scale. PLAN FOR INPATIENT GLYCEMIC CONTROL: * Hold outpatient oral diabetes medications * Basal insulin * Lantus 0-5-8 units SQ BID (5 units for BSG 140 - 200 mg/dL, 8 units for BSG > 200 mg/dL) * Bolus insulin * NovoLog per scale ACHS or Q6hrs while NPO * Goal Range: Low 110 mg/dL - High 140 mg/dL * Correction Factor: 35 mg/dL/unit * Nutritional / Prandial insulin per carb ratio of 1 unit per 12 grams CHO consumed
--- NOTE | 2024-02-14 15:45 | Communication Note ---
Date of Service: February 14, 2024 admitted overnight denies any active pain at this time, no fevers or chills denies any neuropathy or history of foot wounds EXAM serous drainage through Kerlix on bilateral feet #Bilateral partial thickness [place] of feet Continue empirics Podatry consult for possible surgical debridement will make NPO wound care consult #Chronic anemia baseline around 11 b12, folate, iron awan in am #CKDIII stable renal function #DMTII A1C 7.1% glycemic pharmacy monitoring rest of plan per HP
[2024-02-14] MEDS: clonazePAM 0.5 MG TAB PO PRN (21:32)
[2024-02-14] MEDS: traZODone HCL 50 MG TAB PO SCH (21:32)
[2024-02-14] MEDS: DAPTOmycin 275 MG in SYRINGE 0 ML IV SCH (21:33)
[2024-02-15 06:15] LABS: Hematocrit (blood only) 34.2 % (42.0-52.0); Hemoglobin 11.5 g/dl (14.0-18.0); Mean Corpuscular Hemoglobin 29.1 pg (25.0-34.0); Mean Corpuscular Hgb Conc 33.6 g/dL (32.0-36.0); Mean Corpuscular Volume 86.6 fL (80.0-100.0); Mean Platelet Volume 8.9 fL (9.4-12.4); Platelet Count 287 K/uL (130-400); RDW Coefficient of Variation 12.6 % (11.5-14.5); RDW Standard Deviation 40.3 fL (36.4-46.3); Red Blood Count 3.95 M/uL (4.70-6.10); White Blood Count 8.29 K/ul (4.8-10.8)
[2024-02-15 06:36] LABS: BUN Creatinine Ratio 9.1 (10-20); Calcium 8.9 mg/dl (8.6-10.3); Creatinine Clr Calc Pharmacy 41.3 ml/min; Phosphorus 4.3 mg/dl (2.5-4.9); Potassium 4.6 mmol/L (3.5-5.1)
[2024-02-15 06:55] LABS: Ferritin 70.5 ng/ml (8-388)
[2024-02-15 06:59] LABS: Folate (Folic Acid),Ser orPlas 8.11 ng/ml (>5.38)
[2024-02-15 07:20] VITALS: BP 107/60; PULSE 72; RESP 16; TEMP 97.5; O2SAT 96
[2024-02-15] MEDS: IRON SUCROSE 300 MG in SODIUM CHLORIDE 0.9% 250 ML IV ONE (07:59)
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
--- NOTE | 2024-02-15 13:03 | Communication Note ---
Date of Service: February 15, 2024 By CMS guidelines, a determination that the admission or continued stay is not medically necessary has been made by a member of the UR committee and rina rasheed for this hospital stay, therefore a Code 44 will be completed and the Inpatient admission will be changed to outpatient.
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
--- NOTE | 2024-02-22 13:55 | Coding Query ---
PRESENT ON ADMISSION QUERY To promote full compliance with coding requirements relating to pateint care, physician participation is requested in all cases of ophthalmic medical assistant uncertainty. Please assist us with the question(s) below: Please place an X within the parenthesis (x). The following diagnosis listed in this patient's medical record requires physician assistance to determine if it was present on admission (POA) or not. Please advise for each diagnosis whether it was present on admission, not present on admission, or if it was clinically undetermined. 1. Cellulitis (documented on the 02/14 Orthopedic Consultation and on the Discharge Summary) ( ) Present On Admission. Please specify further below, the location of the Cellulitis: ( ) Cellulitis of unknown location ( x) Cellulitis of Specified location. Please Specify bilateral feet ( ) Not Present On Admission. Please specify further below, the location of the Cellulitis: ( ) Cellulitis of unknown location ( ) Cellulitis of Specified location. Please Specify ( ) Clinically Undetermined. Please specify further below, the location of the Cellulitis: ( ) Cellulitis of unknown location ( ) Cellulitis of Specified location. Please Specify Thank you Danna Mcgovern *Definition of the present on admission (POA)-Present on admission is defined as present at the time the order for inpatient admission occurs. Conditions that develop during an outpatient encounter prior to a written order for inpatient admission (including emergency department, observation, or outpatient surgery) are considered present on admission. HAN
== END 2024-02-15 14:51 | disposition home or self-care (01) | DRG 934 ==
LOC: ED 20:08 → 3E 02-14 02:16